=== PATIENT | female | born 1950 | race Caucasian/White ===

== ENCOUNTER → 2017-01-26 | Outpatient (CLI) | payer OTHER ==
[~2017-01-26] MED LIST: ANTIVERT/2525 MG PO; APIDRA100 U/ML; ASPIRIN81 M1 PO; ATORVASTATIN CA10 MG PO; CALCIUM; CELECOXIB200 M1 PO; CEPHULAC10 GM/151 PO; DICYCLOMINE HCL10 MG PO; DIOVAN HCT 12.51 TAB PO; DIOVAN HCT 25 M1 TA2 PO; DIOVAN160 MG PO; GLUCOTROL XL10 MG PO; GLYXAMBI1 TAB PO; LABETALOL HCL100 MG PO; METFORMIN1000 MG PO; METFORMIN500 MG PO; NOVOLIN N100 U/ML SC; NOVOLOG 70/30 M10 ML SC; OMEPRAZOLE40 MG PO; VICTOZ; VICTOZA6 MG/ML SC; VITAMIN E500 IU PO
== END | disposition home or self-care (01) ==
LOC: MRI 13:33
DX: I63.9 Cerebral infarction, unspecified (principal); E11.9 Type 2 diabetes mellitus without complications

== ENCOUNTER → 2017-03-27 | Outpatient (CLI) | payer OTHER ==
[2017-03-27 11:55] LABS: HEMOGLOBIN A1c 12.6 % (4.8-5.6)
[2017-03-27 12:06] LABS: ALBUMIN 3.1 gm/dl (3.1-4.5); BILIRUBIN, TOTAL 0.4 mg/dl (0.2-1.0); TOTAL PROTEIN 6.9 gm/dL (6.4-8.2)
== END | disposition home or self-care (01) ==
LOC: LAB 11:12
PROVIDERS: Family Medicine
DX: E55.9 Vitamin D deficiency, unspecified (principal); I10 Essential (primary) hypertension; E11.9 Type 2 diabetes mellitus without complications; E78.00 Pure hypercholesterolemia, unspecified

== ENCOUNTER → 2017-04-21 | Outpatient (CLI) | payer OTHER ==
--- NOTE | ~2017-04-21 | PR ---
[place], [place] PROGRESS NOTE NAME: JERMAINE NA [facility] #: [id number] UNIT #: [id number] ROOM: DOCTOR: KEVIN HOLLINGSWORTH DPM BIRTHDATE: [birth year] DOS: 04/21/2017 SUBJECTIVE: This is a new patient. She is a 67-year-old female, diabetic, who presents with an area of ulceration on plantar surface of right foot. The patient is not certain how long this area has been open. She did notice some blood on the sock and that is what prompted her to come in here. She was seen by her primary care physician and placed on Augmentin yesterday. PHYSICAL EXAMINATION: It is noted that initially there is an area that measures 0.4 x 0.6 x 0.3 underneath the second metatarsophalangeal joint. This area is slough covered. With the initial evaluation, the area was probed and there was a large piece of glass that was in the subcutaneous tissue layer. This glass was extracted utilizing a pickup and a 15 blade and removed in toto. Purulent discharge was noted, although there is some erythema around the metatarsophalangeal joint in this region. IMPRESSION: Foreign body with infection of the second metatarsophalangeal joint region and a diabetic ulceration secondary to this issue. PLAN: 1. Evaluate. 2. Excision of foreign body glass from the right foot. PLAN: 1. Evaluate. 2. Again, the excision was performed. We will send her to x-ray to make certain there is no other foreign bodies deep within the tissue structures and to rule out any abscess or osteomyelitis. The patient will be placed on silver alginate and a bulky dressing and a surgical shoe. I would like to see the patient back in 2 weeks since there is no clinic next week, although we will call her if anything suspicious showed up on x-ray. KEVIN HOLLINGSWORTH DPM CM:PNTRANS [phone] KEVIN HOLLINGSWORTH DPM 04/21/17 2326 interface
== END ==
LOC: WOUNDCARE 02:26
DX: E11.621 Type 2 diabetes mellitus with foot ulcer (principal); L97.422 Non-pressure chronic ulcer of left heel and midfoot with fat layer exposed; L97.511 Non-pressure chronic ulcer of other part of right foot limited to breakdown of skin

== ENCOUNTER → 2017-04-22 | Outpatient (CLI) | payer OTHER | END | disposition home or self-care (01) | LOC: RAD 10:33 | DX: S90.811A Abrasion, right foot, initial encounter (principal); E11.621 Type 2 diabetes mellitus with foot ulcer; L97.422 Non-pressure chronic ulcer of left heel and midfoot with fat layer exposed; M77.31 Calcaneal spur, right foot; X58.XXXA Exposure to other specified factors, initial encounter; Y93.89 Activity, other specified; Y92.89 Other specified places as the place of occurrence of the external cause; Y99.8 Other external cause status ==

== ENCOUNTER → 2017-05-05 | Outpatient (CLI) | payer OTHER ==
--- NOTE | ~2017-05-05 | PR ---
[place], [place] PROGRESS NOTE NAME: JERMAINE AN [facility] #: [id number] UNIT #: [id number] ROOM: DOCTOR: KEVIN HOLLINGSWORTH DPM BIRTHDATE: [birth year] DOS: 05/05/2017 SUBJECTIVE: The patient was seen for followup of right foot ulceration secondary to trauma and foreign body. The patient has been doing well. She has been using the alginate with Ag to the area and a bulky bandage. She has no new complaints. Area is very small today at 0.1 x 0.5 x 0.1. No signs of infection. There was some callus tissue which was debrided through to skin. The patient tolerated procedure well, no bleeding. No signs of infection, complications or any other abnormalities noted at this time. IMPRESSION: Trauma area, plantar surface of right foot, progressing very well. PLAN: 1. Evaluate. 2. We will continue with the silver alginate and dressing to the area every other day. Like to see the patient back next week just for 1 additional followup. Hopefully, she will be healed at that time. Any problems should arise, she can call us with any issues. KEVIN HOLLINGSWORTH DPM CM:CHELLY [phone] KEVIN HOLLINGSWORTH DPM 05/05/17 1029 interface
== END | disposition home or self-care (01) ==
LOC: WOUNDCARE 00:35
DX: E11.621 Type 2 diabetes mellitus with foot ulcer (principal); L97.511 Non-pressure chronic ulcer of other part of right foot limited to breakdown of skin; L97.422 Non-pressure chronic ulcer of left heel and midfoot with fat layer exposed; L84 Corns and callosities

== ENCOUNTER → 2017-05-12 | Outpatient (CLI) | payer OTHER ==
--- NOTE | ~2017-05-12 | PR ---
[place], [place] PROGRESS NOTE NAME: JERMAINE AN [facility] #: [id number] UNIT #: [id number] ROOM: DOCTOR: KEVIN HOLLINGSWORTH DPM BIRTHDATE: [birth year] DOS: 05/12/2017 SUBJECTIVE: The patient was seen for followup of right plantar foot wound. She has been performing dressing changes as directed. She states that the that we gave her, she did not like it, they did not stick. She has other Band-Aids that she has been using. No other new complaints. PHYSICAL EXAMINATION: It is noted that the wound is relatively the same measurement at 0.1 x 0.5 x 0.2. There is a lot of callus tissue, which was debrided from the area of dermis. Some bleeding was noted. The wound is clean without any type of infection or any other abnormalities noted at this time. IMPRESSION: Diabetic ulceration, grade 1, in nature; foreign body puncture wound, stable. PLAN: 1. Evaluate. 2. Debridement was performed. We will change her to Puracol to see if we can fill in that center area of wound deficit. The patient is to apply that to the area daily. I would like to see the patient back next week for followup of this complaint and we will see her back at that time. KEVIN HOLLINGSWORTH DPM CM:PNTRANS [phone] KEVIN HOLLINGSWORTH DPM 05/13/17 1302 interface
== END | disposition home or self-care (01) ==
LOC: WOUNDCARE 03:43
DX: E11.621 Type 2 diabetes mellitus with foot ulcer (principal); L97.422 Non-pressure chronic ulcer of left heel and midfoot with fat layer exposed; L97.511 Non-pressure chronic ulcer of other part of right foot limited to breakdown of skin; L84 Corns and callosities

== ENCOUNTER → 2017-05-19 | Outpatient (CLI) | payer OTHER ==
--- NOTE | ~2017-05-19 | PR ---
[place], [place] PROGRESS NOTE NAME: JERMAINE AN [facility] #: [id number] UNIT #: [id number] ROOM: DOCTOR: KEVIN HOLLINGSWORTH DPM BIRTHDATE: [birth year] DOS: 05/19/2017 SUBJECTIVE: The patient seen for followup of plantar right foot ulcer secondary to foreign body. The patient is doing well. She has no new complaints. She has been using the Puracol as directed. PHYSICAL EXAMINATION: It is noted that the wound is very small at 0.4 x 0.6 x 0.2. Slough debris and devitalized tissue was debrided from the wound through subcutaneous with 15 blade. No bleeding was noted. No signs of infection, no other complications noted at this time. IMPRESSION: Grade 1 ulcer secondary to foreign body. PLAN: 1. Evaluate. 2. Debridement was performed. We will continue using Puracol, but add a horseshoe-shaped pad in the forefoot to help offload this area. The patient is to change this dressing daily and [facility] 1 week. KEVIN HOLLINGSWORTH DPM CM:CHELLY 1 30 KEVIN HOLLINGSWORTH DPM 05/19/172330 interface
== END | disposition home or self-care (01) ==
LOC: WOUNDCARE 02:02
DX: E11.621 Type 2 diabetes mellitus with foot ulcer (principal); L97.511 Non-pressure chronic ulcer of other part of right foot limited to breakdown of skin; L97.422 Non-pressure chronic ulcer of left heel and midfoot with fat layer exposed

== ENCOUNTER → 2017-05-26 | Outpatient (CLI) | payer OTHER ==
--- NOTE | ~2017-05-26 | PR ---
[place], [place] PROGRESS NOTE NAME: JERMAINE AN [facility] #: [id number] UNIT #: [id number] ROOM: DOCTOR: KEVIN HOLLINGSWORTH DPM BIRTHDATE: [birth year] DOS: 05/26/2017 SUBJECTIVE: This is an established patient seen for followup of right foot plantar ulcer, grade 1 diabetic in nature due to foreign body. The patient has been using the Puracol to the area without any new complaints. She has been up on her feet a lot. Her is disabled and she has had to take care of him more than usual, so she has not been able to offload the area as much as possible. PHYSICAL EXAMINATION: It is noted that the wound is very small, 0.1 x 0.5 x 0.8, but abundance of callus tissue and devitalized tissue was present in and around the wound. This area was debrided through subcutaneous with 15 blade. No bleeding was noted. The patient tolerated the procedure. No active infection or complications noted. IMPRESSION: Grade 1 diabetic ulceration, stable. PLAN: 1. Evaluate. 2. Debride area. We will continue the Puracol. I talked to the patient about the need to offload the area. Horseshoe pads were also dispensed to the patient in order to alleviate some of the pressure to the wound. If she is able to offload the area more and get help from family members and the wound still does not progress, we will think about alternative options like a cellular tissue product to get this to closure. KEVIN HOLLINGSWORTH DPM CM:PNTRANS [phone] KEVIN HOLLINGSWORTH DPM 05/26/172339 interface
== END | disposition home or self-care (01) ==
LOC: WOUNDCARE 03:00
DX: E11.621 Type 2 diabetes mellitus with foot ulcer (principal); L97.511 Non-pressure chronic ulcer of other part of right foot limited to breakdown of skin; L97.422 Non-pressure chronic ulcer of left heel and midfoot with fat layer exposed

== ENCOUNTER → 2017-06-02 | Outpatient (CLI) | payer OTHER ==
--- NOTE | ~2017-06-02 | PR ---
[place], [place] PROGRESS NOTE NAME: JERMAINE NA [facility] #: [id number] UNIT #: [id number] ROOM: DOCTOR: KEVIN HOLLINGSWORTH DPM BIRTHDATE: [birth year] DOS: 06/02/2017 SUBJECTIVE: The patient was seen for followup of plantar right foot wound secondary to foreign body and diabetes. The patient is progressing well. She has been doing the bandage changes as directed. No new complaints at this time. PHYSICAL EXAMINATION: It is noted that the wound measures 0.5 x 0.5 x 0.2 cm. No debridement was done today. No callus or other debris noted in the wound. The wound has filled in quite nicely and there is a baby skin surrounding the wound bed itself. IMPRESSION: Grade 1 diabetic ulceration, foreign body, progressing very well. PLAN: 1. Evaluate. 2. We will continue with padding to the area. We will take her off Puracol and move her to alginate. I also did put a horseshoe pad in her shoe in order to help offload the area. I would like to just check the patient back next week quickly to make certain that new epithelial skin has remained intact and the area is completely closed. She is to call if any problems arise in the meantime. KEVIN HOLLINGSWORTH DPM CM:PNTRANS [phone] KEVIN HOLLINGSWORTH DPM 06/02/17 1129 interface
== END | disposition home or self-care (01) ==
LOC: WOUNDCARE 00:24
DX: E11.621 Type 2 diabetes mellitus with foot ulcer (principal); L97.422 Non-pressure chronic ulcer of left heel and midfoot with fat layer exposed; L97.511 Non-pressure chronic ulcer of other part of right foot limited to breakdown of skin

== ENCOUNTER → 2017-06-09 | Outpatient (CLI) | payer MEDICARE ==
--- NOTE | ~2017-06-09 | PR ---
[place], [place] PROGRESS NOTE NAME: JERMAINE AN [facility] #: [id number] UNIT #: [id number] ROOM: DOCTOR: KEVIN HOLLINGSWORTH DPM BIRTHDATE: [birth year] DOS: 06/09/2017 SUBJECTIVE: This is an established patient seen for followup of right plantar foot grade 1 diabetic ulcerations secondary to foreign body. She has been doing the dressings with alginate and a Band-Aid every other day without any new complaints. PHYSICAL EXAMINATION: It is noted that the wound is smaller, 0.3 x 0.5 x 0.2. Callus tissue and debris is debrided through subcutaneous with 15 blade. The patient tolerated the procedure well and no bleeding was noted. No signs of infection or drainage present at this time. IMPRESSION: Grade 1 diabetic ulceration, progressing well, but slowly. PLAN: 1. Evaluate. 2. Debridement was performed. We will now switch to Arglaes powder to the area daily. The patient is to change this daily and put a boardered foam around the area after packing the Arglaes powder into the wound. I would like to see the patient back in 1 week for followup. KEVIN HOLLINGSWORTH DPM CM:CEHLLY [phone] KEVIN HOLLINGSWORTH DPM 06/12/17 0850 interface
== END | disposition home or self-care (01) ==
LOC: WOUNDCARE 02:44
DX: E11.621 Type 2 diabetes mellitus with foot ulcer (principal); L97.511 Non-pressure chronic ulcer of other part of right foot limited to breakdown of skin; L97.422 Non-pressure chronic ulcer of left heel and midfoot with fat layer exposed; L84 Corns and callosities

== ENCOUNTER → 2017-06-16 | Outpatient (CLI) | payer MEDICARE ==
--- NOTE | ~2017-06-16 | PR ---
[place], [place] PROGRESS NOTE NAME: JERMAINE AN [facility] #: [id number] UNIT #: [id number] ROOM: DOCTOR: KEVIN HOLLINGSWORTH DPM BIRTHDATE: [birth year] DOS: 06/16/2017 SUBJECTIVE: The patient was seen for followup of plantar surface, right foot diabetic ulcer and foreign body. The patient has been using the alginate and dry dressing without any complaints. PHYSICAL EXAMINATION: It is noted that the ulcer is very small 0.1 x 0.4 x 0.1. Callus tissue and debris was debrided through dermis with a 15 blade. No bleeding was noted and the patient tolerated procedure well. No signs of infection or complications noted at this time. IMPRESSION: Grade 1 diabetic ulceration, progressing well. PLAN: 1. Evaluate. 2. Debridement was performed. She was using Arglaes powder. We will continue using the Arglaes powder and a dry dressing daily and then see the patient back in 1 week. She is to call if any problems arise in the meantime. KEVIN HOLLINGSWORTH DPM CM:PNTRANS [phone] KEVIN HOLLINGSWORTH DPM 06/17/17 0025 interface
== END | disposition home or self-care (01) ==
LOC: WOUNDCARE 02:41
DX: E11.621 Type 2 diabetes mellitus with foot ulcer (principal); L97.422 Non-pressure chronic ulcer of left heel and midfoot with fat layer exposed; L97.511 Non-pressure chronic ulcer of other part of right foot limited to breakdown of skin

== ENCOUNTER → 2017-06-23 | Outpatient (CLI) | payer MEDICARE | END | disposition home or self-care (01) | LOC: WOUNDCARE 02:11 | DX: E11.621 Type 2 diabetes mellitus with foot ulcer (principal); L97.511 Non-pressure chronic ulcer of other part of right foot limited to breakdown of skin ==

== ENCOUNTER → 2017-07-03 | Outpatient (CLI) | payer MEDICARE, OTHER ==
[~2017-07-03] MED LIST changes: +AMITIZA8 MCG PO; +Carafate1 GM PO; +DICLOFENAC SOD75 MG PO; +GLIPIZIDE10 M2 PO; +LYRICA150 M1 PO; +TRESIBA FL200 UNIT/1 SC; +VALSARTAN160 MG PO; +VITAMIN E100 UNI2 PO
[2017-07-03 09:53] LABS: HEMATOCRIT 26.9 % (37.0-47.0); MEAN CELL VOLUME 71.9 fl (81.0-99.0); MEAN CORPUSCULAR HGB 18.7 pg (27.0-31.0); NUCLEATED RED BLOOD CELL 0.6 % (0.0-0.0); RED BLOOD COUNT 3.74 10*6/uL (4.10-5.10); RED CELL DISTRI WIDTH 20.5 % (0-14.5); WHITE BLOOD COUNT 6.7 10*3/uL (4.8-10.8)
[2017-07-03 10:24] LABS: ALBUMIN 3.1 gm/dl (3.1-4.5); ALKALINE PHOSPHATASE 115 U/L (45-117); BUN 11 mg/dl (7-24); CHLORIDE 106 mmol/L (98-107); CHOLESTEROL 159 mg/dL (<200); CREATININE 1.07 mg/dL (0.55-1.02); HDL CHOLESTEROL 38 mg/dl (40-60); LDL CHOLESTEROL 92 mg/dL (9-159); POTASSIUM 4.7 mmol/L (3.5-5.1); SGOT/AST 18 IU/L (3-35); SGPT/ALT 20 U/L (12-78); SODIUM 139 mmol/L (136-145); TOTAL PROTEIN 6.9 gm/dL (6.4-8.2); TRIGLYCERIDES 144 mg/dl (<150); VLDL CHOLESTEROL 29 mg/dL (6-40)
== END | disposition home or self-care (01) ==
LOC: LAB 09:36
PROVIDERS: Family Medicine
DX: E55.9 Vitamin D deficiency, unspecified (principal); E11.9 Type 2 diabetes mellitus without complications; I10 Essential (primary) hypertension; E78.00 Pure hypercholesterolemia, unspecified

== ENCOUNTER 2017-07-04 11:07 | Inpatient (IN) | payer MEDICARE, OTHER ==
[2017-07-04] VITALS (7 sets, daily range): BP systolic 130–154; BP diastolic 41–78
[~2017-07-04] VITALS: Ht 162.5 cm; Wt 119.3 kg
--- NOTE | ~2017-07-04 | DS ---
[place], [place] DISCHARGE SUMMARY NAME: JERMAINE AN [facility] #: [id number] UNIT #: [id number] ROOM: 528 DOCTOR: NICHOLE RICKSUNITA Archuleta BIRTHDATE: [birth year] DOS: 07/07/2017 DISCHARGE DIAGNOSES: 1. Blood loss anemia from gastrointestinal bleed. 2. Patient with ulceration and stricture of the ascending colon on colonoscopy by Dr. Teixeira, asked to follow up with him in 2 weeks. 3. Diclofenac and Celebrex were stopped, probably causing gastrointestinal bleed. 4. Thrombocytopenia. 5. Elevated alkaline phosphatase level. 6. Type 2 diabetes mellitus. 7. Hypertension. 8. Gastroesophageal reflux disease and esophagitis. HOSPITAL COURSE: The patient was admitted by Dr. Carey Moreland when he presented with rectal bleeding. The patient had blood mixed with stool. The patient admitted and hemoglobins were monitored and she was given 3 units of packed cells. Finally, the patient was taken for EGD and colonoscopy and was found to have ascending colon stricture and ulcerations possible site of bleeding. Dr. Teixeira recommended stopping diclofenac and Celebrex for pain, which were possibly causing the patient's bleeding. Dr. Teixeira has cleared the patient for discharge today and to follow up with him in 2 weeks. I am arranging for patient to follow up on Monday with Dr. Kraig Lees. Benign essential hypertension with controlled blood pressures. Type 2 diabetes mellitus. Blood sugars were monitored and treated. History of colon cancer. Obesity. LABORATORY DATA: Hemoglobin of [address] of the abdomen and pelvis showed some hepatic steatosis. DISCHARGE MANAGEMENT: Metformin 1000 mg b.i.d., Victoza 1.8 mg daily subQ, labetalol 50 mg b.i.d., Tylenol p.r.n., Protonix 40 mg daily, Carafate 1 gram b.i.d. before meals, Lyrica 150 mg daily. The patient was found to be iron deficient and was given intravenous iron during her stay at the hospital and iron deficiency anemia probably related to GI bleed. The patient to follow with Dr. Kraig Lees on Monday and with Dr. Teixeira in 2 weeks. Her hemoglobin needs to be monitored. [place], [place] DISCHARGE SUMMARY NAME: JERMAINE AN [facility] #: [id number] UNIT #: [id number] ROOM: 528 DOCTOR: SUNITA VARELA MD BIRTHDATE: [birth year] SUNITA VARELA MD CM:ARJUN 1944 SUNITA VARELA MD 07/08/1712 interface
--- NOTE | ~2017-07-04 | O ---
[place], [place] OPERATIVE NOTE NAME: JERMAINE AN UNIT #: [id number] ROOM: 528 DOCTOR: DYLAN HUFFMAN MD BIRTHDATE: [birth year] DOS: GASTROENDOSCOPIC REPORT HISTORY OF PRESENT ILLNESS: This is a 67-year-old patient who presented with chief complaint of anemia, tiredness, status post unit of blood transfusion of packed cells. The patient was found to have H and H of 7 and 26 microcytic indices. Comprehensive metabolic panel: Creatinine 1.07. Electrolytes balanced liver function test normal. Hemoglobin A1c 12, vitamin D 17. CBC differential dropped to 6 and 24. Her latest H and H has increased to 7.3 and 26. She requires more transfusion which is arranged. PAST MEDICAL HISTORY: Colonic carcinoma of sigmoid colon, status post resection, gastroesophageal reflux, uterine cancer, hypertension, diabetes mellitus. PAST SURGICAL HISTORY: Sigmoid resection, hysterectomy, cholecystectomy. SOCIAL HISTORY: Nonsmoker, nonalcohol consumer. FAMILY HISTORY: Noncontributory. ALLERGIES: No known medication. MEDICATION: List has been reviewed including omeprazole. The patient has been diclofenac as well as aspirin. PROCEDURE: Today's procedure part of investigation is colonoscopy and panendoscopy. PREMEDICATION: Versed and Diprivan. SCOPE: Olympus forward-viewing gastroscope Q10 video. REPORT: After putting the patient in the left lateral position and after application of lubricant to the scope, the scope was introduced; thereafter, under direct visualization, advanced through the length of esophagus without difficulty. Gastric pouch was entered. Mild gastritis seen. Duodenal bulb, second and third part within normal limits. Antral biopsy obtained. The patient was extubated, tolerated procedure well. IMPRESSION: Mild gastritis, no active source of bleeding in upper gastrointestinal tract. We are going to proceed with colonoscopy. Thank you very much indeed. [place], [place] OPERATIVE NOTE NAME: JERMAINE AN [facility] #: [id number] UNIT #: [id number] ROOM: 528 DOCTOR: DYLAN HUFFMAN MD BIRTHDATE: [birth year] DYLAN HUFFMAN MD CM:OPRECORD:OPERATIVE NOTE 1326 27 DYLAN HUFFMAN MD 07/05/17 182 interface
--- NOTE | ~2017-07-04 | PR ---
[place], [place] PROGRESS NOTE NAME: JERMAINE AN [facility] #: [id number] UNIT #: [id number] ROOM: 528 DOCTOR: HUGO WOODY MD BIRTHDATE: [birth year] DOS: SUBJECTIVE: The patient states that she feels better and would like to go home. OBJECTIVE: VITAL SIGNS: Graphic trend shows blood pressure 113/55, pulse of 88, respirations 20, temperature 97.6. LUNGS: Clear. HEART: Regular. ABDOMEN: Obese, soft, nontender. EXTREMITIES: Without any edema. LABORATORY DATA: Blood sugar was 306 on the last reading. ASSESSMENT AND PLAN: 1. Acute gastrointestinal bleed. Endoscopy showing gastritis, most likely from multiple nonsteroidals that she has been on. 2. Possibility of diverticulitis. IV Flagyl was given. A CT scan of the abdomen and pelvis has been ordered. She also had biopsies of the anastomotic site and we are awaiting the results of that. 3. Iron deficiency anemia, iron supplements IV and p.o. have been started. 4. Type 2 diabetes mellitus, on metformin and glipizide and insulin. They will be restarting her medications since the patient is eating well. The plan is to discharge her to home tomorrow if the patient remains stable. HUGO WOODY MD CM:PNTRANS [phone] HUGO WOODY MD 07/06/17 1219 interface
--- NOTE | ~2017-07-04 | WRIGHTHP ---
[place], [place] PATIENT HISTORY AND PHYSICAL EXAM NAME: JERMAINE AN [facility] #: [id number] UNIT #: [id number] ROOM: 528 DOCTOR: HUGO WOODY MD BIRTHDATE: [birth year] DOS: 07/04/2017 HISTORY OF PRESENT ILLNESS: The patient is 67 years old. The patient is not known to me. The patient comes in with complaints of bleeding per rectum. She has had that for about 2 weeks now. Blood is mixed with her stool. She has had hemorrhoids in the past. She did have blood work in March which was normal and yesterday she went for routine blood work at Dr. Lees's office, was called that her blood count was too low and that she needs to come into the Emergency Room, so she decided to come in. Her blood count in the Emergency Room was 6.2 and we decided to admit her with precipitous drop in hematocrit and GI bleed. The patient denies having any complaints, but has a lot of back pain and leg pain. She has been taking both diclofenac and Celebrex for pain. She denies having any fever, any chills, any chest pains or palpitations. Does have mild shortness of breath when she exerts herself. PAST MEDICAL HISTORY: Significant for: 1. Benign hypertension. 2. Type 2 diabetes mellitus. 3. Chronic back pain, possibly from osteoarthritis for which she is on multiple anti-inflammatories. 4. History of colon cancer. HOME MEDICATIONS: ____, Celebrex, diclofenac, ____, valsartan/hydrochlorothiazide, labetalol, metformin, omeprazole, Lyrica, vitamin E, insulin, Tarceva, Victoza. SOCIAL HISTORY: Nonsmoker, does not use any alcohol. PHYSICAL EXAMINATION: GENERAL: She is awake and alert and oriented. VITAL SIGNS: Blood pressure is 154/62, pulse of 98, respirations 20, temperature 97.7. LUNGS: Diminished breath sounds. No wheezes, rales or rhonchi heard. HEART: Regular. ABDOMEN: Obese, minimal tenderness present diffusely. EXTREMITIES: Without any edema. ASSESSMENT AND PLAN: 1. Precipitous drop in hematocrit, possibly from a gastrointestinal bleed. The patient is ordered iron studies and transfusion has been ordered and consultation with Dr. Teixeira has been obtained. 2. The patient has chronic pain, has been on 2 different nonsteroidals, possibly has bleeding ulcer. We will discontinue both medications. Pain medicines will be ordered. 3. Type 2 diabetes mellitus, poorly controlled. The patient is advised to watch her diet. Metformin has right now to be on hold along with insulin since the patient is n.p.o. for procedure. We will restart at a later date. [place], [place] PATIENT HISTORY AND PHYSICAL EXAM [facility]: [facility] [id number] [facility] #: [id number] ROOM: 528 DOCTOR: HUGO WOODY MD BIRTHDATE: [birth year] HUGO WOODY MD CM:HISPHYS:PATIENT HISTORY AND PHYSICAL EXAMINATION 1854 14 HUGO WOODY MD 07/05/172214 interface
--- NOTE | ~2017-07-04 | O ---
[place], [place] OPERATIVE NOTE NAME: JERMAINE AN Brian UNIT #: [id number] ROOM: 528 DOCTOR: NATHANAEL RICK,DYLAN BIRTHDATE: [birth year] DOS: GASTROENDOSCOPIC REPORT INDICATION: The patient has presented with history of severe anemia, microcytic in origin. The patient has been on aspirin, diclofenac and Celebrex. PROCEDURE: Today's procedure part of investigation is colonoscopy plus biopsy. PREMEDICATION: Versed and Diprivan. SCOPE: Olympus folding colonoscope 10L video. REPORT: After putting the patient in the left lateral position and after application of lubricant to the scope, the scope was introduced; thereafter, under direct visualization, advanced through the length of colon without difficulty via the sigmoid colon, evidence of previous resection of sigmoid colon was noticed. Scope was negotiated with few diverticula noticed in the descending and transverse colon. Finally, we achieved to reach mid ascending colon. In this area, I see colonic stricture with ulcerations on rim of the . This particularly character is estranged and very rare representation. Base of the cecum explored, no pathology seen, withdrawn back to the site of the stricture mid ascending colon with ulceration at the rim of . Multiple biopsies obtained. Photographic series obtained and I expect this be a rare representation of the ulcer and stricture formation in colon secondary to nonsteroidal anti-inflammatory including diclofenac as well as Celebrex in addition to presence of aspirin with lead to chronic blood loss. Scope was gradually withdrawn. The patient extubated, tolerated procedure well. IMPRESSION: Status post sigmoid resection with benign anastomotic site, scattered rare diverticulosis and mid ascending colon stricture and ulcerations ruling out to be secondary to nonsteroidal anti-inflammatory intake in addition to aspirin which is the cause of chronic microcytic anemia. PLAN AND DISCUSSION: At the present time, multiple biopsies was obtained to rule out infiltrative pathology, i.e., dysplastic cell, particularly in view of colonic carcinoma, history and past as well as uterine carcinoma and should it be benign inflammatory cells, then we have to consider withdrawing diclofenac and Celebrex from her regimen, only managing her care. Other alternative managed pain including fentanyl and otherwise. I thank you very much indeed for your kind referral. [place], [place] OPERATIVE NOTE NAME: JERMAINE AN UNIT #: [id number] ROOM: 528 DOCTOR: NATHANAEL RICK,DYLAN BIRTHDATE: [birth year] DYLAN HUFFMAN MD CM:OPRECORD:OPERATIVE NOTE 1326 35 DYLAN HUFFMAN MD 07/05/17 183 interface
[~2017-07-04 11:07] MED LIST changes: -AMITIZA8 MCG PO; -Carafate1 GM PO; -DICLOFENAC SOD75 MG PO; -GLIPIZIDE10 M2 PO; -LYRICA150 M1 PO; -TRESIBA FL200 UNIT/1 SC; -VALSARTAN160 MG PO; -VITAMIN E100 UNI2 PO
[2017-07-04 11:54] LABS: BASO % 0.5 % (0.0-1.0); EOS # 0.2 10*3/uL (0.0-0.4); EOS % 2.8 % (1.0-4.0); HEMATOCRIT 24.8 % (37.0-47.0); HEMOGLOBIN 6.5 g/dl (12.0-16.0); LYMPH # 1.2 10*3/uL (1.3-4.4); LYMPH % 19.1 % (27.0-41.0); MEAN CELL VOLUME 70.3 fl (81.0-99.0); MEAN CORPUSCULAR HGB 18.4 pg (27.0-31.0); MEAN CORPUSCULAR HGB CONC 26.2 g/dl (33.0-37.0); MONO # 0.4 10*3/uL (0.1-1.0); MONO % 5.7 % (3.0-9.0); NEUT # 4.4 10*3/uL (2.3-7.9); NEUT % 71.2 % (47.0-73.0); NUCLEATED RED BLOOD CELL 0.7 % (0.0-0.0); PLATELET COUNT AUTOMATED 121 10*3/uL (130-400); RED BLOOD COUNT 3.53 10*6/uL (4.10-5.10); RED CELL DISTRI WIDTH 20.5 % (0-14.5); WHITE BLOOD COUNT 6.1 10*3/uL (4.8-10.8)
[2017-07-04 12:01] LABS: ACT PARTIAL THROMBO TIME 21.8 SECONDS (20.8-31.5)
[2017-07-04 12:07] LABS: ALBUMIN 3.2 gm/dl (3.1-4.5); CREATININE 1.15 mg/dL (0.55-1.02); POTASSIUM 4.5 mmol/L (3.5-5.1); TOTAL PROTEIN 7.1 gm/dL (6.4-8.2)
--- NOTE | 2017-07-04 14:17 | NUR ---
I nformed consent obtained from patient for Blood transfusion by. 1. Patient identified by arm band. Vital signs recorded. Blood unit number verified by 2 R.N.'s. I.V. site satisfactory. Unit 1 started at a KVO rate with Normal Saline. TEA DWYER 1341HRS
--- NOTE | 2017-07-04 14:18 | NUR ---
Time: 1417 A 67 year old FEMALE admitted to 5E under services of DR. BONG RICK,HUGO. Pt. arrived via stretcher from ER. Chief complaint: ANEMIA. WADE LEONE
--- NOTE | 2017-07-04 14:18 | NUR ---
1343 TO 5 EAST. RN WAITING AT BEDSIDE. NO INCIDENT WITH TRANSPORT OR TRANSITION TO BED. NO QUESTIONS AT TIME OF PATIENT TRANSER.
--- NOTE | 2017-07-04 14:30 | NUR ---
BLOOD CONTINUES TO INFUSE.
[2017-07-04] MEDS ORDERED: VITAMIN E100 UNI2 PO (14:31)
[2017-07-04] MEDS ORDERED: GLIPIZIDE10 M2 PO (14:32)
[2017-07-04] MEDS ORDERED: LYRICA150 M1 PO (14:33)
[2017-07-04] MEDS ORDERED: DICLOFENAC SOD75 MG PO (14:35)
[2017-07-04] MEDS ORDERED: TRESIBA FL200 UNIT/1 SC (14:36)
[2017-07-04 15:24] LABS: IRON 22 ug/dL (50-170); TOTAL IRON BINDING CAPACITY 422 ug/dl (250-450)
--- NOTE | 2017-07-04 16:30 | NUR ---
BLOOD TRANSFUSION COMPLETE.
--- NOTE | 2017-07-04 20:00 | NUR ---
PT ALERT AND ORIENTED. IN BED, WATCHING TV. PREP FOR COLONOSCOPY FINSIHED. PRE-OP QUESTIONAIRE FOR PROCEDURE IN AM COMPLETED.
[2017-07-05] VITALS (7 sets, daily range): BP systolic 133–154; BP diastolic 52–77
--- NOTE | 2017-07-05 06:00 | NUR ---
PT. SAID LAST STOOL WAS LIKE WATER BUT HAD SLIGHT BROWN TINT.
[2017-07-05 06:36] LABS: HEMATOCRIT 26.7 % (37.0-47.0); HEMOGLOBIN 7.3 g/dl (12.0-16.0)
--- NOTE | 2017-07-05 06:47 | NUR ---
FLEETS ENEMA ADMINISTERED PER ORDER. PATIENT TOLERATED WELL.
--- NOTE | 2017-07-05 07:59 | NUR ---
FLEETS ENEMA GIVEN. SMALL FLECKS OF SLOOL IN TOILET. PATIENT STATES SHE REFUSES AND FURTHER ENEMAS.
--- NOTE | 2017-07-05 10:46 | NUR ---
Assistive Technology Specialist in to talk to patient. Patient states lives at HOME with HER . There are 12 steps in the home. Physician: DR OSWALD [facility]ONE Patient's level of ADLs: INDEPENDENT Patient has working utilities: YES DME: NONE Follow-up physician's appointment after d/c: PREFERS TO MAKE HER OWN APPT Does patient want to access PORTAL?: Discharge plan HOME. LATASHA RODRIGUEZ
--- NOTE | 2017-07-05 12:00 | NUR ---
TO OR VIA BED.
--- NOTE | 2017-07-05 14:30 | NUR ---
RETURNED FROM OR.
--- NOTE | 2017-07-05 20:00 | NUR ---
LAYING IN BED, WATCHING TV. LUNGS DIMINISHED, NO WHEEZING OT RHONCHI NOTED. BILAT PITTING PEDAL EDEMA. NO PAIN AT PRESENT TIME.
[2017-07-06] VITALS (14 sets, daily range): BP systolic 113–160; BP diastolic 55–98
--- NOTE | 2017-07-06 06:22 | NUR ---
CALLED DR. WOODY TO VERIFY CT ABD/PELVIS AND SHE SAID YES TO BE DONE WITHOUT CONTRAST.
[2017-07-06 06:38] LABS: HEMATOCRIT 24.8 % (37.0-47.0); HEMOGLOBIN 6.9 g/dl (12.0-16.0)
--- NOTE | 2017-07-06 08:16 | NUR ---
PT DOWN FOR CAT SCAN AT THIS TIME.
--- NOTE | 2017-07-06 08:40 | NUR ---
PT BACK FROM CT AT THIS TIME.
--- NOTE | 2017-07-06 10:15 | NUR ---
BLOOD TRANSFUSION STARTED AT THIS TIME. VITAL SIGNS OBTAININED PER POLICY.
--- NOTE | 2017-07-06 13:35 | NUR ---
BLOOD TRANSFUSION COMPLETED AT THIS TIME. PT TOLERATED WELL. VITAL SIGNS STABLE. IV FLAGYL HUNG AT THIS TIME. SECOND OF PRBC'S WILL BE STARTED UPON COMPLETION.
--- NOTE | 2017-07-06 15:30 | NUR ---
SECOND UNIT OF PRBC'S STARTED AT THIS TIME. VITAL SIGNS OBTAINED; WNL.
--- NOTE | 2017-07-06 15:45 | NUR ---
PT TOLERATING BLOOD TRANSFUSION WELL. VITAL SIGNS WNL.
--- NOTE | 2017-07-06 20:00 | NUR ---
SITTING IN RECLINER, NO ACUTE DISTRESS NOTED. RESPIRATIONS EASY. LUNGS DIMINISHED, CLEAR. PULSE OX 100% RA. TRACE BLE EDEMA. CALL LIGHT WITHIN REACH. NO VOICED COMPLAINTS
--- NOTE | 2017-07-06 21:19 | NUR ---
REQUESTED AND RCEIVED TYLENOL PER PRN ORDER FOR COMPLAINTS OF HEADACHE RATING AN 8. CALL LIGHT WITHIN REACH. WILL MONITOR FOR EFFECTIVENESS
--- NOTE | 2017-07-06 23:00 | NUR ---
EARLIER DEMEROL APPEARS EFFECTIVE. SLEEPING. NO DISTRESS NOTED. RESPIRATIONS EASY. CALL LIGHT WITHIN REACH
[2017-07-07] VITALS: BP 120/46
--- NOTE | 2017-07-07 02:00 | NUR ---
SLEEPING. NO DISTRESS NOTED. RESPIRATIONS EASY. CALL LIGHT WITHIN REACH
[2017-07-07 06:00] LABS: MEAN CELL VOLUME 74.6 fl (81.0-99.0); MEAN CORPUSCULAR HGB 21.7 pg (27.0-31.0); MEAN CORPUSCULAR HGB CONC 29.1 g/dl (33.0-37.0); NUCLEATED RED BLOOD CELL 0.1 10*3/uL (0.0-0.0); NUCLEATED RED BLOOD CELL 0.9 % (0.0-0.0); PLATELET COUNT AUTOMATED 100 10*3/uL (130-400); RED BLOOD COUNT 4.14 10*6/uL (4.10-5.10); RED CELL DISTRI WIDTH 22.5 % (0-14.5); WHITE BLOOD COUNT 5.3 10*3/uL (4.8-10.8)
--- NOTE | 2017-07-07 06:00 | NUR ---
slept throughout night with no distress noted. respirations easy. call light within reach. no voiced complaints this shift
[2017-07-07 06:07] LABS: HEMATOCRIT 30.9 % (37.0-47.0)
[2017-07-07 06:21] LABS: CREATININE 1.12 mg/dL (0.55-1.02); POTASSIUM 4.4 mmol/L (3.5-5.1); TOTAL PROTEIN 6.3 gm/dL (6.4-8.2)
[2017-07-07 06:40] LABS: BASOPHILS 3 % (0-1); TOTAL CELLS COUNTED 100 #CELLS
[2017-07-07 06:41] LABS: PLATELET SUFFICIENCY LOW (NORMAL)
[2017-07-07 06:42] LABS: POLYCHROMASIA SLIGHT
[2017-07-07 08:00] VITALS: BP 146/70
--- NOTE | 2017-07-07 11:13 | NUR ---
CALL PLACED TO DR WOODY AT THIS TIME IN REGARDS TO PT BEING CLEARED FROM GI STANDPOINT. AWAITING CALL BACK.
[2017-07-07 12:00] VITALS: BP 100/50
--- NOTE | 2017-07-07 12:00 | NUR ---
DR WOODY RETURNED CALL, STATES DR VARELA IS ROUNDING TODAY AND WILL SEE PT LATER.
--- NOTE | 2017-07-07 12:30 | NUR ---
ANJEMRAINE Torres [id number] Please refer to the physician's history and physical for past medical history, comorbid conditions, and allergies. Diagnosis: ANEMIA, GI BLEED Monico Score: 20,LOW OR NO RISK WOUND DESCRIPTIONS: Location of the wound: right plantar aspect of foot Type of wound: traumatic Thickness: Full Size: 0.4cm x 0.3cm x <0.1cm Tunneling: none Undermining: none Sinus Tract: none Presence of Exudate: Amount: None Color: Brown Odor: None Periwound Skin Appearance: Normal Wound edges: approximated Pain (associated with wound): none at time of assessment How does patient state this happened? pt stated she step on glass. pt also follows up in the wound care center and is getting arglase powder covered with border foam. Surface the patient is resting on: Isoflex SKIN PREVENTION RECOMMENDATION: 1. Pressure redistribution support surface as appropriate 2. Elevate heels 3. Remove boots/TEDS every shift and reapply 4. Head of bed 30 degrees as tolerated 5. Assess nutrition and hydration 6. Manage moisture 7. Avoid the use of containment devices while in bed 8. Use absorptive products on surfaces limit layers of linens on bed 9. Turn and reposition every 1-2 hours in bed and every 1 hour in chair as tolerated 10. Weight shifts every 15 minutes while up in chair 11. Offloading with pillows or device to keep heels elevated off bed 12. Monitor skin at least every shift 13. Inspect under medical devices twice a day WOUND TREATMENT RECOMMENDATIONS: Cleanse area with NSS and apply arglase powder when patient brings from home then cover with optifoam gentle. If patient is unable to bring in arglase powder just cleanse area with nss and apply optifoam gentle for protection. Have patient follow up [facility] with Dr. Roland.
--- NOTE | 2017-07-07 14:18 | NUR ---
Per Dr. Moreland follow up in the [facility] when discharged and to continue current orders from the [facility] until seen in the [facility]ound Care Center.
[2017-07-07 16:00] VITALS: BP 147/66
[2017-07-07] MEDS ORDERED: Carafate1 GM PO (19:33)
--- NOTE | 2017-07-07 20:05 | NUR ---
Discharge instructions reviewed with patient/family. Patient receptive and verbalizes understanding. Written instructions given to patient/family. PATIENT DISCHARGED VIA WC IN CARE OF . HEP LOCK REMOVED. DISCHARGE PICS TAKEN. SAWYER PAULINO
== END 2017-07-07 20:05 | disposition home or self-care (01) | DRG 394 ==
LOC: ED 11:07 → 5E 12:54 → EDHOLD 12:54 → 5E 13:18
PROVIDERS: Emergency Medicine; Family Medicine; ADMIT Internal Medicine
PROC: 30233N1 Transfusion of Nonautologous Red Blood Cells into Peripheral Vein, Percutaneous Approach (ICD-10-PCS; principal; 2017-07-04)
PROC: 0DBK8ZX Excision of Ascending Colon, Via Natural or Artificial Opening Endoscopic, Diagnostic (ICD-10-PCS; principal; 2017-07-04)
PROC: 0DB68ZX Excision of Stomach, Via Natural or Artificial Opening Endoscopic, Diagnostic (ICD-10-PCS; principal; 2017-07-04)
DX: K63.3 Ulcer of intestine (principal); K92.2 Gastrointestinal hemorrhage, unspecified; D69.6 Thrombocytopenia, unspecified; K56.699 Other intestinal obstruction unspecified as to partial versus complete obstruction; E11.65 Type 2 diabetes mellitus with hyperglycemia; T39.395A Adverse effect of other nonsteroidal anti-inflammatory drugs [NSAID], initial encounter; K21.0 Gastro-esophageal reflux disease with esophagitis; D50.9 Iron deficiency anemia, unspecified; I10 Essential (primary) hypertension; E66.9 Obesity, unspecified; D50.0 Iron deficiency anemia secondary to blood loss (chronic); Z85.43 Personal history of malignant neoplasm of ovary; Z90.710 Acquired absence of both cervix and uterus; Z79.82 Long term (current) use of aspirin; Z79.4 Long term (current) use of insulin; Z79.899 Other long term (current) drug therapy; Y92.89 Other specified places as the place of occurrence of the external cause; Z90.49 Acquired absence of other specified parts of digestive tract; Z82.49 Family history of ischemic heart disease and other diseases of the circulatory system; Z71.3 Dietary counseling and surveillance; Z85.42 Personal history of malignant neoplasm of other parts of uterus; Z83.3 Family history of diabetes mellitus; Z79.84 Long term (current) use of oral hypoglycemic drugs

== ENCOUNTER → 2017-07-12 | Outpatient (CLI) | payer MEDICARE, OTHER ==
[~2017-07-12] MED LIST changes: +Carafate1 GM PO; +DICLOFENAC SOD75 MG PO; +GLIPIZIDE10 M2 PO; +LYRICA150 M1 PO; +TRESIBA FL200 UNIT/1 SC; +VITAMIN E100 UNI2 PO
[2017-07-12 11:00] LABS: HEMATOCRIT 34.7 % (37.0-47.0); HEMOGLOBIN 9.9 g/dl (12.0-16.0); MEAN CELL VOLUME 77.3 fl (81.0-99.0); MEAN CORPUSCULAR HGB CONC 28.5 g/dl (33.0-37.0); NUCLEATED RED BLOOD CELL 0.4 % (0.0-0.0); PLATELET COUNT AUTOMATED 103 10*3/uL (130-400); RED BLOOD COUNT 4.49 10*6/uL (4.10-5.10); RED CELL DISTRI WIDTH 23.6 % (0-14.5)
[2017-07-12 11:32] LABS: CREATININE 1.11 mg/dL (0.55-1.02); POTASSIUM 4.5 mmol/L (3.5-5.1)
== END | disposition home or self-care (01) ==
LOC: LAB 10:29
PROVIDERS: Family Medicine
DX: K92.2 Gastrointestinal hemorrhage, unspecified (principal); D64.9 Anemia, unspecified

== ENCOUNTER 2017-07-17 01:15 | Inpatient (IN) | payer MEDICARE, OTHER ==
[~2017-07-17] VITALS: Ht 162.5 cm; Wt 117.0 kg
[2017-07-17] VITALS (7 sets, daily range): BP systolic 135–182; BP diastolic 58–79
--- NOTE | ~2017-07-17 | CON ---
[place], [place] REPORT OF CONSULTATION NAME: JERMAINE AN UNIT #: [id number] ROOM: 515 DOCTOR: TAMMY MERRILL MD BIRTHDATE: [birth year] DOS: HISTORY OF PRESENT ILLNESS: This is a 67-year-old -[place]ian woman with a history of type 2 diabetes mellitus, longstanding hypertension and colon cancer. She has never had a heart attack, heart failure, COPD or stroke. She had upper GI bleeding earlier this month and had workup done and she was found to have peptic ulcer disease and severe anemia was treated with blood transfusion. She was admitted to the hospital because of couple of days of lower retrosternal and epigastric pain that felt more like a pressure and tightness. There is no sharpness to it. It did not go into the back, but at that time has noticed on the left side of the neck and both arms. It has persisted for those 2 days and has not got away completely and she does not recall any exertional symptoms previously other than perhaps shortness of breath. No swelling of the lower extremities, palpitations, or loss of consciousness. SOCIAL HISTORY: She does not smoke, nor does she drink alcoholic beverages. Lives with her . PHYSICAL EXAMINATION: GENERAL: This reveals a patient who is moderately obese, alert, and oriented. She is not anemic. No thyromegaly or finger clubbing. VITAL SIGNS: Pulse is 72 and regular, blood pressure 155/79, previous blood pressures were high. NECK: Normal JVP. No bruit in the neck. HEART: There is no cardiomegaly. No murmurs are present. EXTREMITIES: Pedal pulses are palpable. There is trace plus pretibial edema bilaterally. LUNGS: Breath sounds are fairly decent bilaterally without any adventitious sounds. DIAGNOSTIC STUDIES: No ECG was done. LABORATORY STUDIES: Troponin I level was about less than 0.015. IMPRESSION: This patient with many risk factors for coronary artery disease, has symptoms that are of some concern. I agree with you that Lexiscan Cardiolite study should be performed before she leaves the hospital to exclude significant coronary artery disease. I thank you on behalf of Dr. Sloan for this consult. [place], [place] REPORT OF CONSULTATION NAME: JERMAINE AN UNIT #: [id number] ROOM: [facility] DOCTOR: TAMMY MERRILL MD BIRTHDATE: [birth year] TAMMY MERRILL MD CM:CONSTR:REPORT OF CONSULTATION 1257 07/18/17 0413 interface PATY SLOAN MD
--- NOTE | ~2017-07-17 | WRIGHTHP ---
[place], [place] PATIENT HISTORY AND PHYSICAL EXAM NAME: JERMAINE AN [facility] #: [id number] UNIT #: [id number] ROOM: 515 DOCTOR: HUGO WOODY MD BIRTHDATE: [birth year] DOS: 07/17/2017 HISTORY OF PRESENT ILLNESS: This patient is 67-year-old. The patient comes in with complaints of chest pain. The patient points to her epigastric area and states that she has had pain. She denies having any fever, any chills, any abdominal pain, nausea, any emesis. She was recently admitted in hospital for GI bleed. She has not noticed any since discharge. She had endoscopy and colonoscopy. A polyp was removed and endoscopy showed gastritis. The patient was placed on medications, states that she has been taking them. She denies having any fever. She does not have any other complaints this morning. PAST MEDICAL HISTORY: Significant for: 1. Again recent GI bleed, showing evidence of gastritis. 2. Type 2 diabetes mellitus, insulin-dependent. 3. History of coronary artery disease. 4. Benign hypertension. 5. Chronic back pain. MEDICATIONS: Aspirin 81, glipizide 10 b.i.d., labetalol 100 b.i.d., Amitiza 8 mcg b.i.d., metformin 1000 b.i.d., omeprazole 40 daily, Lyrica 150 b.i.d., Carafate 1 gram b.i.d., valsartan 160 daily, Tresiba insulin 130 units subcutaneously daily, Victoza 1.5 subcutaneously daily. SOCIAL HISTORY: Nonsmoker, does not use any alcohol. PHYSICAL EXAMINATION: GENERAL: She is awake and alert and oriented. VITAL SIGNS: Blood pressure is 156/79, pulse of 78, respirations 14. LUNGS: Diminished breath sounds. No wheezes, rales or rhonchi heard. HEART: Regular. ABDOMEN: Obese. Some tenderness noted in the epigastric region. EXTREMITIES: Without any edema. ASSESSMENT AND PLAN: 1. A patient who presents with chest pain. She does have risk factors and has known history of heart disease. She has been admitted. Rule out myocardial infarction protocol has been obtained. A cardiology consultation has been obtained and may require a stress test. 2. Type 2 diabetes mellitus, insulin-dependent. Her ____ shows that she takes a high dose of insulin. Right now, I will continue the glipizide and metformin and avoid insulin for right now. 3. Recent gastritis. The patient will be continued on her proton pump inhibitor. [place], [place] PATIENT HISTORY AND PHYSICAL EXAM NAME: JERMAINE AN UNIT #: [id number] ROOM: [facility] DOCTOR: HUGO WOODY MD BIRTHDATE: [birth year] HUGO WOODY MD CM:HISPHYS:PATIENT HISTORY AND PHYSICAL EXAMINATION 46 48 HUGO WOODY MD 07/17/172046 interface
--- NOTE | ~2017-07-17 | ST ---
[place], [place] EXERCISE STRESS TEST REPORT [id number] UNIT #: [id number] ROOM: [facility] DOCTOR: PATY ROBERTSON MD BIRTHDATE: [birth year] DOS: 07/18/2017 Lexiscan portion of the Lexiscan Cardiolite, 0.4 mg Lexiscan, duration of 10 seconds. Baseline cardiogram sinus rhythm with nonspecific ST-T changes. With Lexiscan, the patient had no chest discomfort, did have some shortness of breath. Blood pressure and heart rate response was normal. FINAL IMPRESSION: No EKG changes with Lexiscan. No chest pain with Lexiscan. No dysrhythmia with Lexiscan. Blood pressure and heart rate response was normal. Nuclear images will be reported separately. PATY ROBERTSON MD CM:STRESS:EXERCISE STRESS TEST REPORT [id number] PATY ROBERTSON MD
--- NOTE | ~2017-07-17 | CON ---
[place], [place] REPORT OF CONSULTATION [id number] UNIT #: [id number] ROOM: 515 DOCTOR: MIKKI HUFFMAN MDGHISLAINEBLAKE BIRTHDATE: [birth year] DOS: 07/17/2017 HISTORY OF PRESENT ILLNESS: A 67-year-old patient who has presented with chief complaint of chest pain, undergoing investigation, tightness in subxiphoid area. The patient with a history of anemia, status post previous transfusion. The patient with a history of diabetes mellitus and low H and H again this time. PAST MEDICAL HISTORY: Associated uterine CA, colon CA, history of hypertension, diabetes mellitus, gastroesophageal reflux, history of gastritis, multiple ulcerations in ascending colon and stricture, status post biopsy and no infiltration of carcinoma. PAST SURGICAL HISTORY: Cholecystectomy, sigmoid colon resection, hysterectomy. Recent EGD and colonoscopy last week. SOCIAL HISTORY: Nonsmoker, nonalcohol consumer. FAMILY HISTORY: Noncontributory. ALLERGIES: No known medication allergies. MEDICATIONS: Medication list has been reviewed. She used to be on Celebrex, diclofenac and nonsteroidal anti-inflammatories. REVIEW OF SYSTEMS: HEENT: Denies double vision, blurry vision. RESPIRATORY: Denies acute shortness of breath. CARDIOVASCULAR: Admits to atypical chest pain. DIGESTIVE SYSTEM: Colonic stricture and ulcerations on the right side, status post colon CA resection, sigmoid. PHYSICAL EXAMINATION: VITAL SIGNS: Obese patient. HEENT: Head normocephalic, nontraumatic. Mouth and buccal mucosa benign. NECK: Supple, no thyromegaly, no cervical lymphadenopathy. CHEST: Symmetric anatomy, equal expansion. No wheeze, no rhonchi. HEART: Normal sinus rhythm, no gallop, no murmur. ABDOMEN: Obese, soft. No hepato-organomegaly. Bowel sounds present. No rebound tenderness. EXTREMITIES: No cyanosis, no pedal edema. NEUROLOGIC: Alert, oriented to time, place, person. Sensory and motor intact. Cranial nerves 2 through 12 intact. IMPRESSION: Subxiphoid pain; chest pain, atypical; history of colonic ulceration on the right side; status post multiple nonsteroidal anti-inflammatories including diclofenac, Celebrex and others; status post previous biopsy with no infiltration of carcinoma; history of gastritis, reflux; Antral biopsies negative for H. pylori. PLAN AND DISCUSSION: PPI, Protonix 40 mg daily; Gaviscon 1 tablet Extra [place], [place] REPORT OF CONSULTATION NAME: JERMAINE AN [facility] #: [id number] UNIT #: [id number] ROOM: [facility] DOCTOR: NATHANAEL RICK,DYLAN BIRTHDATE: [birth year] Strength p.c. meals; elevation of the head of the bed 10 inches at all time; diabetic 1800 diet. Comprehensive metabolic panel reviewed; high glucose is noticed, BUN and creatinine of 11 and 1.1 has been seen; electrolytes, liver function test normal. INR 1.0. Troponin repeatedly negative. I trust that the majority of her chest pain is gastric and esophageal reflux in origin if cardiologic workup negative. The patient is advised to be off stated nonsteroidal anti-inflammatory, diclofenac and Celebrex. DYLAN HUFFMAN MD CM:CONSTR:REPORT OF CONSULTATION 39 07/18/17 0150 interface
--- NOTE | ~2017-07-17 | PR ---
[place], [place] PROGRESS NOTE NAME: JERMAINE AN [facility] #: [id number] UNIT #: [id number] ROOM: 515 DOCTOR: HUGO WOODY MD BIRTHDATE: [birth year] DOS: SUBJECTIVE: The patient is doing fine without any complaints this morning. She underwent a stress test. OBJECTIVE: VITAL SIGNS: Graphic trend shows a pressure of 155/72, pulse of 84, respirations 18, temperature 97.8. LUNGS: Clear. HEART: Regular. ABDOMEN: Obese, soft, nontender. EXTREMITIES: Without any edema. ASSESSMENT AND PLAN: 1. Epigastric pain, most likely from gastritis. The patient is encouraged to take the medication. 2. Coronary artery disease, rule out myocardial infarction protocol was done, which is negative. The patient was seen by Cardiology. A stress test was performed and has come back negative. The patient should be able to go home today. HUGO WOODY MD CM:PNTRANS [id number] HUGO WOODY MD 07/18/17 2345 interface
--- NOTE | ~2017-07-17 | PR ---
[place], [place] PROGRESS NOTE NAME: JERMAINE AN [facility] #: [id number] UNIT #: [id number] ROOM: 515 DOCTOR: HUGO WOODY MD BIRTHDATE: [birth year] DOS: 07/18/2017 DISCHARGE MEDICATIONS: The same as on admission. No new prescriptions were given. HOSPITAL COURSE: The patient is 67-year-old, comes in with complaints of chest pain. Please refer to H and P for details. After admission, rule out NV protocol was added. She was not given Lovenox because of recent GI bleed. Blood sugars in the 200s and 300s. We covered with her p.o. medications initially because her blood sugars were quite low in the beginning. A blood count and basic metabolic panel did not show any major abnormalities compared to the last visit. A consultation with Dr. Teixeira as well as Dr. Sloan was obtained. Dr. Teixeira felt that the patient needs to continue with the meds and avoid nonsteroidals. Dr. Sloan took the patient for a stress test, which has come back negative. Of note is that she has thrombocytopenia, which also could be from the high dose of nonsteroidals that she was on. This needs to be followed up as an outpatient with repeat CBCs. The patient to follow up with Dr. Lees as an outpatient. HUGO WOODY MD CM:PNTRANS [phone] HUGO WOODY MD 07/19/17 0004 interface
[2017-07-17 01:48] LABS: BASO % 0.3 % (0.0-1.0); EOS # 0.1 10*3/uL (0.0-0.4); EOS % 1.7 % (1.0-4.0); HEMATOCRIT 33.3 % (37.0-47.0); HEMOGLOBIN 9.5 g/dl (12.0-16.0); LYMPH # 1.3 10*3/uL (1.3-4.4); LYMPH % 17.9 % (27.0-41.0); MEAN CELL VOLUME 75.3 fl (81.0-99.0); MEAN CORPUSCULAR HGB 21.5 pg (27.0-31.0); MEAN CORPUSCULAR HGB CONC 28.5 g/dl (33.0-37.0); MEAN PLATELET VOLUME 10.7 fl (9.6-12.3); MONO # 0.5 10*3/uL (0.1-1.0); NEUT # 5.2 10*3/uL (2.3-7.9); PLATELET COUNT AUTOMATED 148 10*3/uL (130-400); RED BLOOD COUNT 4.42 10*6/uL (4.10-5.10); RED CELL DISTRI WIDTH 22.4 % (0-14.5); WHITE BLOOD COUNT 7.2 10*3/uL (4.8-10.8)
[2017-07-17 01:56] LABS: ACT PARTIAL THROMBO TIME 23.9 SECONDS (20.8-31.5)
[2017-07-17 02:02] LABS: ALBUMIN 3.1 gm/dl (3.1-4.5); ALKALINE PHOSPHATASE 89 U/L (45-117); BUN 10 mg/dl (7-24); CHLORIDE 108 mmol/L (98-107); CREATININE 1.08 mg/dL (0.55-1.02); POTASSIUM 3.3 mmol/L (3.5-5.1); SGOT/AST 18 IU/L (3-35); SGPT/ALT 17 U/L (12-78); SODIUM 144 mmol/L (136-145); TOTAL PROTEIN 6.8 gm/dL (6.4-8.2)
[2017-07-17 02:03] LABS: TROPONIN I < 0.015 ng/ml (<0.045)
--- NOTE | 2017-07-17 03:30 | NUR ---
Time: 329 A 67 year old FEMALE admitted to 5E under services of DR. BONG RICK,HUGO. Pt. arrived via CART from ER. Chief complaint: CHEST PAIN. GAVINO FORD
--- NOTE | 2017-07-17 04:16 | NUR ---
PATIENT GIVEN ATIVAN IN ER UNABLE TO VERIFY MEDICATIONS.
--- NOTE | 2017-07-17 04:30 | NUR ---
DR WOOYD NOTIFIED OF PATIENT BEING IN ROOM 515. ORDER RECEIVED TO CONSULT DR. HUFFMAN, MAKE NPO, CBC AT 12 NOON, AND START IV NORMAL SALINE AT 70CC/HR.
--- NOTE | 2017-07-17 06:25 | NUR ---
DR MARTINEZ NOTIFIED THAT PATIENTS BGM = 72. WAS STATED THAT IT WOULD BE ALRIGHT SINCE NOT GETTING FOOD OR MEDICATION.
--- NOTE | 2017-07-17 06:35 | NUR ---
DR. HUFFMAN NOTIFIED OF CONSULT, STATED THAT PATIENT CAN HAVE BREAKFAST AND NPO AFTER THAT. STATED IS UNABLE TO GET TO HER EARLY.
--- NOTE | 2017-07-17 08:30 | NUR ---
Head Up Operator Helper in to talk to patient. Patient states lives at HOME with HER . There are 12 steps in the home. Physician: DR OSWALD [facility] services: NONE Patient's level of ADLs: INDEPENDENT Patient has working utilities: YES DME: NONE Follow-up physician's appointment after d/c: PREFERS TO MAKE HER OWN APPT Does patient want to access PORTAL?: Discharge plan HOME. LATASHA RODRIGUEZ
--- NOTE | 2017-07-17 09:00 | NUR ---
PAGED AT THIS TIME.
[2017-07-17] MEDS ORDERED: VALSARTAN160 MG PO (09:56)
[2017-07-17] MEDS ORDERED: AMITIZA8 MCG PO (10:01)
[2017-07-17 13:29] LABS: BASO % 0.4 % (0.0-1.0); EOS # 0.1 10*3/uL (0.0-0.4); EOS % 2.5 % (1.0-4.0); HEMATOCRIT 34.8 % (37.0-47.0); LYMPH % 21.5 % (27.0-41.0); MEAN CELL VOLUME 75.8 fl (81.0-99.0); MEAN CORPUSCULAR HGB 21.8 pg (27.0-31.0); MEAN CORPUSCULAR HGB CONC 28.7 g/dl (33.0-37.0); MEAN PLATELET VOLUME 10.6 fl (9.6-12.3); MONO # 0.5 10*3/uL (0.1-1.0); MONO % 9.3 % (3.0-9.0); NEUT # 3.2 10*3/uL (2.3-7.9); NEUT % 66.1 % (47.0-73.0); PLATELET COUNT AUTOMATED 141 10*3/uL (130-400); RED BLOOD COUNT 4.59 10*6/uL (4.10-5.10); RED CELL DISTRI WIDTH 22.7 % (0-14.5); WHITE BLOOD COUNT 4.8 10*3/uL (4.8-10.8)
--- NOTE | 2017-07-17 18:07 | NUR ---
NOTIFIED DR HUFFMAN AGAIN OF CONSULT.
--- NOTE | 2017-07-17 19:30 | NUR ---
ASSUMED CARE OF PT AT THIS TIME, RESPS EASY AND NONLABORED WITH NO S/S OF DISTRESS CALL LIGHT WITH IN REACH
--- NOTE | 2017-07-17 20:53 | NUR ---
IN TO SEE PT, SEE NEW ORDERS
[2017-07-18] VITALS: BP 149/72
--- NOTE | 2017-07-18 06:55 | NUR ---
PT OFF THE FLOOR AT THIS TIME FOR TESTING
--- NOTE | 2017-07-18 07:39 | NUR ---
INFORMED CONSENT SIGNED FOR LEXISCAN STRESS TEST WITH DR. ROBERTSON. RESTING EKG NSR, HR 84, BP 112/88. PULSE OX 97% AND LUNGS CLEAR BUT DIMINISHED BILATERALLY. COMPLETED ONE MINUTE OF LEXISCAN PROTOCOL RECEIVING LEXISCAN 0.4MG OVER 10 SECONDS. NO ARRHYTHMIAS OR ST CHANGES NOTED. PT C/O SOB, WEIRD FEELING AND LIGHTHEADEDNESS. LAST RECOVERY HR 105, BP 118/80. WAITING NUCLEAR SCANNING IN STABLE CONDITION.
--- NOTE | 2017-07-18 10:40 | NUR ---
DR. WOODY NOTIFIED OF COMPLAINTS OF 5/10 HEADACHE. ORDERED TYLENOL 650 MG PO Q6 PRN FOR PAIN. ORDER READ BACK TO VERIFY.
[2017-07-18 12:00] VITALS: BP 155/72
--- NOTE | 2017-07-18 14:42 | NUR ---
CALLED TO INFORM NURSE THAT PT CAN GO HOME
--- NOTE | 2017-07-18 15:32 | NUR ---
DISCHARGED BY WHEEL CHAIR IN CARE OF .
== END 2017-07-18 15:32 | disposition home or self-care (01) | DRG 313 ==
LOC: ED 01:15 → EDHOLD 02:42 → 5E 02:42
PROVIDERS: Student in an Organized Health Care Education/Training Program; ADMIT Internal Medicine
PROC: 3E073KZ Introduction of Other Diagnostic Substance into Coronary Artery, Percutaneous Approach (ICD-10-PCS; principal; 2017-07-18)
PROC: 4A02XM4 Measurement of Cardiac Total Activity, External Approach (ICD-10-PCS; principal; 2017-07-18)
DX: R07.89 Other chest pain (principal); I25.10 Atherosclerotic heart disease of native coronary artery without angina pectoris; D69.59 Other secondary thrombocytopenia; I10 Essential (primary) hypertension; E11.9 Type 2 diabetes mellitus without complications; K21.9 Gastro-esophageal reflux disease without esophagitis; K29.70 Gastritis, unspecified, without bleeding; T39.395A Adverse effect of other nonsteroidal anti-inflammatory drugs [NSAID], initial encounter; G89.29 Other chronic pain; M54.9 Dorsalgia, unspecified; Z86.010 Personal history of colon polyps; Z79.4 Long term (current) use of insulin; Y92.89 Other specified places as the place of occurrence of the external cause; Z90.49 Acquired absence of other specified parts of digestive tract; Z90.710 Acquired absence of both cervix and uterus; Z85.42 Personal history of malignant neoplasm of other parts of uterus; Z85.038 Personal history of other malignant neoplasm of large intestine; Z87.11 Personal history of peptic ulcer disease

== ENCOUNTER → 2017-07-19 | Outpatient (CLI) | payer MEDICARE, OTHER ==
[~2017-07-19] MED LIST changes: +AMITIZA8 MCG PO; +VALSARTAN160 MG PO
== END | disposition home or self-care (01) ==
LOC: WOUNDCARE 01:08
DX: E11.621 Type 2 diabetes mellitus with foot ulcer (principal); L97.511 Non-pressure chronic ulcer of other part of right foot limited to breakdown of skin

== ENCOUNTER 2017-08-08 13:40 | Inpatient (IN) | payer MEDICARE, OTHER ==
[~2017-08-08] VITALS: Ht 162.5 cm; Wt 110.4 kg
--- NOTE | ~2017-08-08 | O ---
[place], [place] OPERATIVE NOTE NAME: JERMAINE AN UNIT #: [id number] ROOM: [place] [address] DOCTOR: OUMAR RAMACHANDRAN CRNA BIRTHDATE: [birth year] DOS: 08/10/2017 I was called to ICU for a lumbar puncture on this patient. Upon arrival, I found the patient to be unconscious, unresponsive, febrile. I spoke with Dr. Moreland, agreed medical treatment plan for rapid sequence induction, intubated the patient. 100 mg of lidocaine was used and 150 mg of propofol. Successful direct laryngoscopy with an 8.0 tube, taped at the right lip line at 22 cm. Positive bilateral breath sounds, positive placement by end tidal CO2 color metrics and chest x-ray. At that same time, triple lumen placement, right internal jugular was performed under sterile procedure, sterile gown, sterile gloves, sterile drape and a mask on anesthesia provider. Two attempts were made, passed triple lumen, secured, sutured in place and verified with chest x-ray. OUMAR RAMACHANDRAN CRNA CM:OPRECORD:OPERATIVE NOTE 1308 1401 OUMAR RAMACHANDRAN CRNA 08/11/17 1359 interface
--- NOTE | ~2017-08-08 | CON ---
[place], [place] REPORT OF CON[facility]ULTATION [id number] UN[facility] #: [id number] ROOM: [place] [address] DOCTOR: PRIYANKA RIVERA MD BIRTHDATE: [birth year] DOS: 08/09/2017 HISTORY OF PRESENT ILLNESS: I was called to evaluate this patient, who had a sudden collapse in her room on the 5th floor. The nurse had walked into the room to find her bent over the bed, having vomited and was unresponsive. A rapid response was called and I arrived to evaluate the patient after she had been repositioned in bed and monitor technician was in place. The patient was admitted to the hospital one day ago after an episode of some suspected transient ischemia. CT scan of the brain was negative. Today, she had an MRI of the brain, which was also negative. She had been complaining of some mild nausea, but had had no vomiting. There were no other complaints noted by the nurse and the patient was unable to provide any other information. PHYSICAL EXAMINATION: GENERAL: She is obese, well-nourished, well-developed female, extremely somnolent, though did answer simple questions for me. SKIN: Warm and dry and she had yellow emesis on the left side of her face from the vomiting. NECK: Supple. No jugular venous distention or adenopathy. CHEST: Symmetrical. LUNGS: Clear to auscultation and percussion. ABDOMEN: Obese, soft, nontender. Bowel sounds heard in all 4 quadrants. No masses appreciated. EXTREMITIES: No edema. No calf or thigh tenderness. NEUROLOGIC: Somnolent. Responds to simple questions. No lateralizing neurological signs. Pupils were equal and round, reactive to light and extraocular movements were full. IMAGING AND LABORATORY DATA: monitor and storage bin tender showed sinus tachycardia with a heart rate of 102. A 12-lead EKG was within normal limits, normal sinus rhythm, normal OH interval, normal QRS duration, normal QT, QTc. No evidence for acute occurrence of injury. I recommended arterial blood gases, comprehensive metabolic profile, troponin level, 12-lead EKG, CBC, differential, lipase, CT scan of the brain, 1 view chest x-ray, supplemental O2. PLAN: She was given Zofran 4 mg intravenously for the nausea and vomiting. Intravenous saline was ordered. I did speak with Dr. Low. Dr. Low was covering for Dr. Moreland and he asked that I consult with Dr. Alexander, the icing mixer. The patient was transferred to ICU in a guarded condition. I did discuss this patient with Dr. Low and also the health staff, revised of my findings and recommendations. [place], [place] REPORT OF CONSULTATION NAME: JERMAINE AN UNIT #: [id number] ROOM: [place] [address] DOCTOR: PRIYANKA RIVERA MD BIRTHDATE: [birth year] PRIYANKA RIVERA MD CM:CONSTR:REPORT OF CONSULTATION 0307 08/11/17 0155 interface
--- NOTE | ~2017-08-08 | EKG ---
[place], [place] ELECTROCARDIOGRAM REPORT NAME: JERMAINE AN UNIT #: [id number] ROOM: [place] [address] DOCTOR: TAMMY MERRILL MD BIRTHDATE: [birth year] DOS: 08/09/2017 TIME: 1939 hours. Underlying rhythm is normal sinus at 98 beats per minute. The tracing is within normal limits. No previous tracing is available for comparison. TAMMY MERRILL MD CM:EKGRPT:ELECTROCARDIOGRAM REPORT [id number] 1248 TAMMY MERRILL MD
--- NOTE | ~2017-08-08 | WRIGHTHP ---
[place], [place] PATIENT HISTORY AND PHYSICAL EXAM NAME: JERMAINE AN [facility] #: [id number] UNIT #: [id number] ROOM: 502 DOCTOR: HUGO WOODY MD BIRTHDATE: [birth year] DOS: 08/08/2017 HISTORY OF PRESENT ILLNESS: The patient is 67 years old. The patient is very well known to us. The patient states that she was sitting at home waiting for her friend to pick her up for a lunch and she noticed complete weakness of the right arm. She was unable to lift it at all. She had some numbness in the left side and she also had facial numbness, especially around the lips area. Her speech was quite garbled and it lasted for a few seconds and then resolved on its own. She says she decided to come into the Emergency Room. She denies having any chest pains, palpitations. She does not have any fever or chills, does not have any abdominal pain, nausea, any emesis. Her blood pressures have been running on the high side because she did not take any medicines yesterday. PAST MEDICAL HISTORY: Significant for: 1. History of GI bleed for which she was recently hospitalized. 2. Type 2 diabetes mellitus, insulin-dependent. 3. Coronary artery disease. 4. Benign hypertension. 5. Chronic back pain. MEDICATIONS: That she is on are aspirin 81 daily, glipizide 10 b.i.d., labetalol 50 b.i.d., Amitiza 8 mcg b.i.d., metformin 1000 b.i.d., omeprazole 40 daily, Carafate 1 gram b.i.d., valsartan 160 daily, vitamin E 800 units daily, insulin Tresiba 130 units daily, Victoza 1.8 ____ daily. SOCIAL HISTORY: Nonsmoker, does not use any alcohol. She lives at home with her . PHYSICAL EXAMINATION: GENERAL: The patient is awake and alert and oriented. VITAL SIGNS: Blood pressure is 170/86, pulse of 100, respirations 20, afebrile. LUNGS: Diminished breath sounds. No wheezes, rales or rhonchi heard. HEART: Regular. ABDOMEN: Obese, soft, nontender. EXTREMITIES: Without any edema. ASSESSMENT AND PLAN: 1. The patient with neurological event, most likely a transient ischemic attack, which had completely resolved by the time she arrived at the Emergency Room. The patient will have a workup including an MRI, carotid Doppler and echocardiogram this morning. A PT/OT consultation has also been obtained. 2. Type 2 diabetes mellitus with multiple risk factors. The patient is well controlled. Her hemoglobin A1c was 7.6 in morning. We will restart her home medications. 3. Benign hypertension, not very well controlled. We may have to readjust her medications. [place], [place] PATIENT HISTORY AND PHYSICAL EXAM NAME: JERMAINE AN [facility] #: [id number] UNIT #: [id number] ROOM: [facility] DOCTOR: HUGO WOODY MD BIRTHDATE: [birth year] HUGO WOODY MD CM:HISPHYS:PATIENT HISTORY AND PHYSICAL EXAMINATION 7 HUGO WOODY MD 08/09/17 0934 interface
--- NOTE | ~2017-08-08 | DS ---
[place], [place] DISCHARGE SUMMARY NAME: JERMAINE AN [facility] #: [id number] UNIT #: [id number] ROOM: [place] [address] DOCTOR: ISSA MALDONADO MD BIRTHDATE: [birth year] DOS: 08/10/2017 HOSPITAL COURSE: The patient is 67 years old. The patient is known to me from the last couple of admissions. She was admitted yesterday with TIA-like symptoms. Please see H and P for details. The patient arrived at the Emergency Room on the 7th evening with complaints of difficulty in moving her right arm and numbness in the left arm and perioral numbness. By the time she arrived, symptoms had already resolved after being evaluated in the ER with a negative CT. She was admitted for stroke workup. After admission, the patient did not have any neurological complaints. There were no signs of meningeal irritation on examination. No neurological deficits. The patient underwent an MRI of the brain, carotid Doppler and an echocardiogram. Carotid Doppler showed less than 50% stenosis. MRI of the brain was reported as negative and echocardiogram is also normal. She also did have a stress test about a month ago, which was negative. The patient also complained of elbow pain at a previous IV site. X-ray of the elbow was negative. Cardiac consultation with Dr. Pavon was obtained, which consult note is in the chart. The patient was given Tylenol without any improvement in her pain, so requested [place], which was given. Around 5:00 p.m., she developed some feeling that she was unable to move her arms, but she did not again have any deficits. She also was quite anxious and restless. One dose of Ativan 0.5 was given. On 7:30 she had a large emesis and was found slumped over on her bed. Rapid response was called and the patient was moved to the ICU. The patient continued to deteriorate when she got into the ICU, which continued worsening of her mental status and almost unresponsive and comatose with normal breathing. Saturations were maintained during the night, but she started spiking a high-grade fever up to about 105. The patient ID consultation was obtained and multiple IV antibiotics were given. CT of the abdomen and pelvis was ordered by Infectious Disease, which showed some evidence of colitis. No CBC is available. Basic metabolic panel was absolutely within normal limits. CBC is pending. No ESR or CRP has been ordered. No CT of the chest was done. Repeat CT of the head was negative. Because of the high-grade fever and change in mental status, almost comatose state with a Hay score of 3. The patient was intubated, even though she was not in acute respiratory failure for airway protection. This morning, the patient will be transferred to [facility] for further neurological workup as well as sepsis workup. [place], [place] DISCHARGE SUMMARY NAME: JERMAINE AN [facility] #: [id number] UNIT #: [id number] ROOM: [place] [address] DOCTOR: ISSA MALDONADO MD BIRTHDATE: [birth year] ISSA MALDONADO MD CM:ARJUN 0 05 ISSA MALDONADO MD 08/10/179 interface
[2017-08-08 13:48] VITALS: BP 155/106
[2017-08-08 14:26] LABS: BILIRUBIN NEGATIVE (NEGATIVE); BLOOD NEGATIVE (NEGATIVE); CLARITY CLEAR (CLEAR); COLOR YELLOW (YELLOW); GLUCOSE NEGATIVE (NEGATIVE); KETONE NEGATIVE (NEGATIVE); LEUKO ESTERASE 1+ (NEGATIVE); NITRITE NEGATIVE (NEGATIVE); SPECIFIC GRAVITY <= 1.005 (1.005-1.030); UROBILINOGEN 0.2 E.U./dl (0.2-1.0)
[2017-08-08 14:26] LABS: BASO % 0.4 % (0.0-1.0); EOS # 0.2 10*3/uL (0.0-0.4); EOS % 4.5 % (1.0-4.0); HEMATOCRIT 40.6 % (37.0-47.0); HEMOGLOBIN 12.1 g/dl (12.0-16.0); LYMPH # 1.1 10*3/uL (1.3-4.4); MEAN CELL VOLUME 75.2 fl (81.0-99.0); MEAN CORPUSCULAR HGB 22.4 pg (27.0-31.0); MEAN CORPUSCULAR HGB CONC 29.8 g/dl (33.0-37.0); MEAN PLATELET VOLUME 9.3 fl (9.6-12.3); MONO # 0.4 10*3/uL (0.1-1.0); MONO % 7.2 % (3.0-9.0); NEUT # 3.6 10*3/uL (2.3-7.9); NEUT % 66.5 % (47.0-73.0); PLATELET COUNT AUTOMATED 126 10*3/uL (130-400); RED CELL DISTRI WIDTH 21.2 % (0-14.5); WHITE BLOOD COUNT 5.4 10*3/uL (4.8-10.8)
[2017-08-08 14:35] LABS: RBC 0-2 rbc/hpf (0-2)
[2017-08-08 14:36] LABS: ACT PARTIAL THROMBO TIME 24.2 SECONDS (20.8-31.5)
[2017-08-08 14:42] LABS: ALBUMIN 3.6 gm/dl (3.1-4.5); ALKALINE PHOSPHATASE 95 U/L (45-117); BUN 8 mg/dl (7-24); CHLORIDE 104 mmol/L (98-107); CREATININE 1.05 mg/dL (0.55-1.02); POTASSIUM 4.3 mmol/L (3.5-5.1); SGOT/AST 21 IU/L (3-35); SGPT/ALT 21 U/L (12-78); SODIUM 138 mmol/L (136-145); TOTAL PROTEIN 7.5 gm/dL (6.4-8.2)
[2017-08-08 14:44] LABS: TROPONIN I < 0.015 ng/ml (<0.045)
[2017-08-08 15:46] VITALS: BP 180/100
--- NOTE | 2017-08-08 15:46 | NUR ---
PT IS LEAVING WITHOUT COMPLETING TX. SHE IS AWAKE AND ALERT. TELLS ME THAT SHE WILL NOT BE ADMITTED,AND WILL NOT RECEIVE TX FOR HER ELEVATED BLOOD PRESSURE.PT STATED THAT WE HAD 1 HOUR TO TAKE CARE OF HER. I INFORMED PT THAT TREATING HER BLOOD PRESSURE DID NOT MEAD THAT SHE HAD TO BE ADMITTED. SHE STILL DECIDED TO LEAVE. ANA LAURA FRANCO
--- NOTE | 2017-08-08 15:51 | NUR ---
The patient, JERMAINE AN, 67, [birth year], [id number], [id number], presented to the Emergency Department at 1342. The patient's Chief Complaint was ELEVATED BLOOD PRESSURE. The patient subsequently "Left Without Being Seen", at 1549. Treatment completed included EXAM,LAB TESTS,CHEST XRAY,EKG. The patient's reason for departing, prior to completion of treatment was "tired of waiting". Assessment of the patient's competence, for making the decision to refuse completion of previously requested exam and treatment, includes alert and oriented. The patient was assured of continued availability of assessment and/or treatment, should the patient decide to stay or return, by AT ANY TIME. Discussion included THE NEED TO STAY FOR TX OF HIGH BLOOD PRESSURE. The patient's response was WILL NOT STAY,SHE IS LEAVING NOW. The patient's disposition is Left Without Complete Rx, to the care of SELF. Arrangements have been made for the ED staff to "Call Back" the patient, to inquire about the patient's medical status and encourage JERMAINE AN, to seek medical attention, if this has not been completed. JANELL LEDBETTER
[2017-08-08 16:33] VITALS: BP 184/98
[2017-08-08 16:41] VITALS: BP 180/100
--- NOTE | 2017-08-08 16:45 | NUR ---
A 67, admitted to 5E, under the services of HUGO Sinha MD with a diagnosis of TIA. Chief complaint is WEAKNESS BILAT UPPER& LOWER EXTERMITIES. Patient arrived via stretcher from ER. Monitor applied. Initial assessment completed. Vital signs taken and recorded. HUGO SINHA MD notified of admission to the unit. Orders received. See assessment for past medical history, medications and allergies. Patient and/or family oriented to unit. [address] visitation policy reviewed. Clothing/patient valuable form completed. WANDY LEGER
[2017-08-08 20:00] VITALS: BP 180/98
--- NOTE | 2017-08-08 20:00 | NUR ---
BLOOD SUGAR 194
--- NOTE | 2017-08-08 20:11 | NUR ---
MANUAL BP 180/98. LABATALOL GIVEN PER ORDER. WILL MONITOR
--- NOTE | 2017-08-08 23:41 | NUR ---
DR WOODY NOTIFIED OF PATIENT C/O ARM PAIN AND REQUESTING MEDICATION. ORDER FOR TYLENOL AT THIS TIME
[2017-08-09] VITALS: BP 170/92
--- NOTE | 2017-08-09 00:18 | NUR ---
PATIENT MEDICATED WITH PRN TYLENOL FOR PAIN RATED AT A "15" ON A 0/10 PAIN SCALE
[2017-08-09 04:00] VITALS: BP 144/86
--- NOTE | 2017-08-09 04:32 | NUR ---
BLOOD SUGAR 211
[2017-08-09 08:00] VITALS: BP 170/86
--- NOTE | 2017-08-09 08:18 | NUR ---
Ems Director in to talk to patient. Patient states lives at HOME with HER . There are 12 steps in the home. Physician: DR OSWALD [facility]: NONE Patient's level of ADLs: INDEPENDENT Patient has working utilities: YES DME: NONE Follow-up physician's appointment after d/c: PREFERS TO MAKE HER OWN APPT Does patient want to access PORTAL?: Discharge plan HOME. LATASHA RODRIGUEZ
--- NOTE | 2017-08-09 08:55 | NUR ---
DR HOWARD'S OFFICE CALLED AND NOTIFIED OF CONSULT.
--- NOTE | 2017-08-09 11:21 | NUR ---
DR WOODY CALLED RE: PT REQUEST FOR PAIN MEDICATION.
--- NOTE | 2017-08-09 11:46 | NUR ---
DR WOODY CALLS UNIT. NEW ORDERS RECEIVED.
--- NOTE | 2017-08-09 15:10 | NUR ---
DR WOODY CALLED AND NOTIFIED OF XRAY, DOPPLER AND MRI RESULTS.
--- NOTE | 2017-08-09 15:30 | NUR ---
PHYSICAL THERAPY PAtient with multiple nurses at this time. Not medically appropriate for PT evaluation. Will attempt at a later date. Thank you for this referral. Saritha Hackett,PT
[2017-08-09 16:00] VITALS: BP 173/102
--- NOTE | 2017-08-09 17:50 | NUR ---
DR WOODY CALLED RE: PT STATES SHE CAN'T MOVE ARM OR LEGS. BUR SHE IS MOVING THEM. PT IS C/O OF ANXIETY AND PAIN. BP 170/100. ORDERS RECEIVED.
--- NOTE | 2017-08-09 19:35 | NUR ---
WALKED IN TO PATIENT LAYING SENIOR CARE OFF OF THE FOOT OF THE BED NOT RESPONDING TO ANY VERBAL OR PAINFUL STIMULI. SPEAKING LOW UNCOMPREHENSIBLE WORDS. VOMIT ON BED AND FLOOR. RAPID RESPONSE CALLED. RESPIRATIONS EASY AND REGULAR. VITAL SIGNS STABLE. DR STEELE TO THE FLOOR TO GIVE ORDERS. PATIENT TRANSFERRED TO THE ICU VIA THIS RN AND MACHINING TECHNICIAN VIOLA
[2017-08-09 20:28] LABS: ABG BASE EXCESS 0.8 mmol/L (-2.0-2.0); ABG HCO3 24.6 mmol/l (22-26); ABG O2 SATURATION 96.3 % (95-97); ARTERIAL BLOOD GAS PCO2 38.2 mmHg (35-45); ARTERIAL BLOOD GAS PH 7.424 (7.35-7.45)
[2017-08-09 20:30] VITALS: BP 168/82
--- NOTE | 2017-08-09 20:30 | NUR ---
PT RECEIVED FROM CT AFTER RAPID RESPONSE ON 5TH FLOOR. SHE IS AWAKE, BUT DROWSY, MOVES ALL EXTREMITIES, AND FOLLOWS COMMANDS.
[2017-08-09 20:41] LABS: ALBUMIN 3.7 gm/dl (3.1-4.5); ALKALINE PHOSPHATASE 90 U/L (45-117); BUN 8 mg/dl (7-24); CHLORIDE 102 mmol/L (98-107); CREATININE 0.94 mg/dL (0.55-1.02); LIPASE 252 U/L (73-393); SGOT/AST 20 IU/L (3-35); SGPT/ALT 24 U/L (12-78); SODIUM 138 mmol/L (136-145); TOTAL PROTEIN 7.7 gm/dL (6.4-8.2)
[2017-08-09 20:43] LABS: TROPONIN I < 0.015 ng/ml (<0.045)
--- NOTE | 2017-08-09 20:50 | NUR ---
LITER OF IVF INFUSED ORDERED DURING RAPID RESPONSE. SHER (ORDERED BY DR STEELE) THAT WAS INSERTED DURING RAPID RESPONSE ON 5TH FLOOR IS PATENT. URINE SAMPLES COLLECTED ORDERED. ZOFRAN GIVEN ORDERED FOR N/V. HOB ELEVATED. PT IN VIEW OF ICU STAFF.
[2017-08-09 20:59] LABS: BILIRUBIN NEGATIVE (NEGATIVE); BLOOD TRACE-LYSED (NEGATIVE); CLARITY CLEAR (CLEAR); COLOR YELLOW (YELLOW); GLUCOSE 1+ (NEGATIVE); KETONE NEGATIVE (NEGATIVE); LEUKO ESTERASE NEGATIVE (NEGATIVE); NITRITE NEGATIVE (NEGATIVE); PH 6.5 (5.0-9.0); UROBILINOGEN 0.2 E.U./dl (0.2-1.0)
--- NOTE | 2017-08-09 21:03 | NUR ---
PT MUMBLES "PRETTY GOOD" WHEN ASKED HOW HER STOMACH/NAUSEA FEELS AFTER ZOFRAN.
[2017-08-09 21:05] LABS: BACTERIA TRACE; WBC 0-2 wbc/hpf (0-5)
--- NOTE | 2017-08-09 21:16 | NUR ---
PT REQUESTING TO LAY ON HER SIDE. ASSISTED WITH POSITION OF COMFORT.
--- NOTE | 2017-08-09 21:36 | NUR ---
UPDATED DR VARELA ON PT CONDITION, LABWORK, CT HEAD, PCXR, VS, SMALL EMESIS, LACTIC ACID AND ONE LITER IVF GIVEN. ORDERS RECEIVED TO CHANGE PARACHUTE CUSHION INSTALLER TO DR MERRILL SHE IS A PT OF DR MERRILL'S.
--- NOTE | 2017-08-09 21:40 | NUR ---
CALLS IN AND UPDATED ON PT CONDITION.
--- NOTE | 2017-08-09 21:40 | NUR ---
ALSO TO NOTIFY DR MERRILL OF CONSULT IN AM OR TONIGHT IF NEEDED.
--- NOTE | 2017-08-09 22:01 | NUR ---
PT ASSISTED TO POSITION OF COMFORT. DOZING. HOB ELEVATED.
--- NOTE | 2017-08-09 22:07 | NUR ---
PT AWAKE, LOOKING AROUND AND TO WHERE HER BELONGINGS ARE SITTING. SPEECH IS STILL GARBLED BUT ANSWERS QUESTIONS.
--- NOTE | 2017-08-09 22:29 | NUR ---
COMPLETE BED CHANGE PT WAS INCONTINENT OF SMALL LIGHT BROWN STOOL. PT HAS PERIODS OF RESTLESSNESS AND YELLS OUT. SPEECH REMAINS GARBLED. MOVES ALL EXTREMITIES.
--- NOTE | 2017-08-09 23:02 | NUR ---
PT DOZING, BODY RELAXED. HR 106/MIN AND RR 18/MIN.
[2017-08-10] VITALS (8 sets, daily range): BP systolic 182–245; BP diastolic 92–122
--- NOTE | 2017-08-10 00:45 | NUR ---
DR. VARELA UPDATED ON PATIENT'S CONDITION. NEW ONSET FEVER, 102.5. EMESIS WITH POSSIBLE ASPIRATION. INCREASE IN RESPIRATORY RATE 28-32, ELEVATED BP AT 182/92 MANUALLY AND DID NOT RECEIVE PO BP MEDS AT 10PM. PATIENT AGITATED AND RESTLESS, DOES NOT FOLLOW COMMANDS. NEW ORDERS RECEIVED AND VERIFIED FOR BLOOD CULTURES X2, CATAPRES PATCH, TYLENOL SUPPOSITORY, CXR IN AM AND IV ZOSYN. WILL CONTINUE TO MONITOR. CAROLYNE DAMON RN
--- NOTE | 2017-08-10 03:20 | NUR ---
DR. VARELA NOTIFIED OF INCREASING TEMP 104.9 RECTALLY AND PLACEMENT OF PATIENT ON COOLING BLANKET. NEW ORDERS RECEIVED. CAROLYNE DAMON RN
--- NOTE | 2017-08-10 04:13 | NUR ---
DR. RUSSO NOTIFIED OF NEW CONSULT. PATIENT'S HISTORY, CLINICAL PRESENTATION, LABS, XRAYS, CT, MRI, US, MEDICATIONS, VITALS, CURRENT CONDITION REVIEWED. NEW ORDERS RECEIVED. CAROLYNE DAMON RN
--- NOTE | 2017-08-10 04:40 | NUR ---
, ALISHA NOTIFIED OF CHANGE IN PATIENT'S CONDITION AND CONSENT OBTAINED FOR LUMBAR PUNCTURE AND PICC LINE INSERTION. VERBALIZES UNDERSTANDING AND GAVE CELL PHONE NUMBER [phone] REQUESTING AN UPDATE FOLLOWING HER PROCEDURES. CAROLYNE DAMON RN
--- NOTE | 2017-08-10 04:50 | NUR ---
DR. VARELA NOTIFIED PER DR. RUSSO'S ORDER OF NEED FOR A LUMBAR PUNCTURE THIS MORNING TO RULE OUT ENCEPHALITIS. NURSING EXPLOSIVES OPERATOR NOTIFIED TO NOTIFY ANESTHESIA OF NEED FOR LUMBAR PUNCTURE PER DR. VARELA. CAROLYNE DAMON RN
--- NOTE | 2017-08-10 05:10 | NUR ---
DR. SPIVEY NOTIFIED OF CONSULT. CAROLYNE DAMON RN
--- NOTE | 2017-08-10 05:50 | NUR ---
DR. VARELA CALLED IN REQUESTING ONE CALL TO BE NOTIFIED TO CALL HIS CELL PHONE REGARDING TRANSFERRING THIS PATIENT TO ICU AT [facility] UNDER THE CARE OF THE HOSPITALIST. AWAITING NOTIFICATION OF POSSIBLE TRANSFER. CAROLYNE DAMON RN
[2017-08-10 06:41] LABS: ABG BASE EXCESS -3.9 mmol/L (-2.0-2.0); ABG HCO3 19.5 mmol/l (22-26); ABG O2 SATURATION 96.7 % (95-97); ARTERIAL BLOOD GAS PCO2 37.4 mmHg (35-45); ARTERIAL BLOOD GAS PH 7.355 (7.35-7.45)
--- NOTE | 2017-08-10 06:50 | NUR ---
DR. WOODY NOTIFIED OF CHANGE IN PATIENT'S CONDITION AND NEED FOR INTUBATION. ANESTHESIA SPOKE VIA PHONE TO DR. WOODY. CAROLYNE DAMON RN
--- NOTE | 2017-08-10 07:13 | NUR ---
, ALISHA NOTIFIED OF DETERIORATION OF PATIENT'S CONDITION, NEED TO INTUBATE PATIENT AND NEED TO TRANFER PATIENT TO [facility]. CONSENTS RECEIVED VIA PHONE, VERBALIZES UNDERSTANDING. CAROLYNE DAMON RN
--- NOTE | 2017-08-10 07:42 | NUR ---
PER DR WOODY, SEND PT NOW, [facility] TO DO LUMBAR PUNCTURE
[2017-08-10 08:11] LABS: ABG HCO3 19.7 mmol/l (22-26); ABG O2 SATURATION 99.7 % (95-97); ARTERIAL BLOOD GAS PCO2 38.6 mmHg (35-45); ARTERIAL BLOOD GAS PH 7.345 (7.35-7.45)
--- NOTE | 2017-08-10 08:18 | NUR ---
PHYSICAL THERAPY Referral rceived but eval not completed as she was having testing 08/09/17 and now condition has deteriorated and she is being sent to [facility]. Erica Escobar, PT
[2017-08-10 08:45] LABS: HEMATOCRIT 42.6 % (37.0-47.0); HEMOGLOBIN 12.6 g/dl (12.0-16.0); MEAN CELL VOLUME 74.9 fl (81.0-99.0); MEAN CORPUSCULAR HGB 22.1 pg (27.0-31.0); MEAN CORPUSCULAR HGB CONC 29.6 g/dl (33.0-37.0); PLATELET COUNT AUTOMATED 146 10*3/uL (130-400); RED BLOOD COUNT 5.69 10*6/uL (4.10-5.10); RED CELL DISTRI WIDTH 21.7 % (0-14.5); WHITE BLOOD COUNT 15.9 10*3/uL (4.8-10.8)
[2017-08-10 09:07] LABS: BASOPHILS 1 % (0-1); TOTAL CELLS COUNTED 100 #CELLS
[2017-08-10 09:08] LABS: MICROCYTOSIS SLIGHT; PLATELET SUFFICIENCY NORMAL (NORMAL); POLYCHROMASIA SLIGHT
--- NOTE | 2017-08-10 09:15 | NUR ---
AT BEGINNING OF MY SHIFT ANESTHESIA WAS HERE TO PERFORM LUMBAR PUNCTURE. ABG'S HAD BEEN DONE. PT WAS BARELY RESPONSIVE AND THE PREVIOUS SHIFT HAD TALKED TO DR WOODY WHO WANTED PT INTUBATED AND MLC INSERTED. SHE SAID TO HOLD OFF ON THE LP PT HAD ALREADY HAD A BED ASSIGNED AT [facility]. ANESTHESIA INTUBATED PT WITH A SZ 8 ETT, 22 AT THE LIP. AN OGT WAS PLACED AND ATTACHED TO LIWS, DRAINING LIGHT GREEN LIQUID. HER HR/BP/TEMP REMAINED ELEVATED. SEE ALL APPROPRIATE INTERVENTIONS. A CARDIZEM BOLUS AND DRIP WERE GIVEN. DR WOODY CAME TO SEE PATIENT. A RIJ MLC WAS PLACED. CXR WAS DONE. UPON TRANSFER SHE HAD CARDIZEM INFUSING AT 10MG/HR AND NS AT 100/HR, AND PROPOFOL AT 40MCG/KG/MIN. SHE HAD HAD DOSES OF VANCOMYCIN,ACYCLOVIR,ZOSYN, ROCEPHIN AND AMPICILLIN. DR RUSSO CALLED IN AND WAS NOTIFIED THAT LP WASN'T DONE AND THAT PT BEING TRANSFERRED TO [facility]. SEE ALL APPROPRIATE INTERVENTIONS.
--- NOTE | 2017-08-10 09:27 | NUR ---
PT DISCHARGED IN STABLE CONDITION, VIA [facility].
--- NOTE | 2017-08-10 09:50 | NUR ---
HAS BEEN NOTIFIED THAT PATIENT HAS LEFT WITH ALL OF HER BELONGINGS. REPORT HAS BEEN GIVEN TO NENITA AT [facility].
== END 2017-08-10 09:27 | disposition short-term general hospital (02) | DRG 69 ==
LOC: ED 13:40 → EDHOLD 16:04 → ICCU 16:04 → 5E 16:04 → ICCU 08-09 20:00
PROVIDERS: Emergency Medicine Emergency Medical Services; Internal Medicine; Student in an Organized Health Care Education/Training Program; ADMIT Internal Medicine
PROC: 5A1935Z Respiratory Ventilation, Less than 24 Consecutive Hours (ICD-10-PCS; principal; 2017-08-10)
PROC: 0BH17EZ Insertion of Endotracheal Airway into Trachea, Via Natural or Artificial Opening (ICD-10-PCS; principal; 2017-08-10)
PROC: 02HV33Z Insertion of Infusion Device into Superior Vena Cava, Percutaneous Approach (ICD-10-PCS; principal; 2017-08-10)
DX: G45.9 Transient cerebral ischemic attack, unspecified (principal); Z68.41 Body mass index [BMI] 40.0-44.9, adult; I25.10 Atherosclerotic heart disease of native coronary artery without angina pectoris; E11.9 Type 2 diabetes mellitus without complications; I10 Essential (primary) hypertension; G89.29 Other chronic pain; M54.9 Dorsalgia, unspecified; K52.9 Noninfective gastroenteritis and colitis, unspecified; E66.9 Obesity, unspecified; K21.9 Gastro-esophageal reflux disease without esophagitis; Z85.038 Personal history of other malignant neoplasm of large intestine; Z85.42 Personal history of malignant neoplasm of other parts of uterus; Z90.49 Acquired absence of other specified parts of digestive tract; Z90.710 Acquired absence of both cervix and uterus; Z83.3 Family history of diabetes mellitus; Z82.49 Family history of ischemic heart disease and other diseases of the circulatory system; Z79.82 Long term (current) use of aspirin; Z79.84 Long term (current) use of oral hypoglycemic drugs; Z79.4 Long term (current) use of insulin; Z79.899 Other long term (current) drug therapy

== ENCOUNTER 2017-09-12 10:39 | Emergency (ER) | payer MEDICARE, OTHER ==
[~2017-09-12] VITALS: Ht 162.5 cm; Wt 108.0 kg
[2017-09-12] MEDS ORDERED: NORCO 5-325 TA1 EACH PO (12:48)
== END 2017-09-12 13:33 | disposition home or self-care (01) ==
LOC: ED 10:39
DX: M25.512 Pain in left shoulder (principal); Z90.49 Acquired absence of other specified parts of digestive tract; Z90.710 Acquired absence of both cervix and uterus; Z79.84 Long term (current) use of oral hypoglycemic drugs; Z79.82 Long term (current) use of aspirin; Z79.4 Long term (current) use of insulin

== ENCOUNTER 2017-09-21 10:02 | Emergency (ER) | payer MEDICARE, OTHER ==
[~2017-09-21] VITALS: Ht 162.5 cm; Wt 104.3 kg
[~2017-09-21 10:02] MED LIST changes: +NORCO 5-325 TA1 EACH PO
[2017-09-21] MEDS ORDERED: NORCO 5-325 TA1 EACH PO (10:11)
[2017-09-21] MEDS ORDERED: NORCO 10-325 T1 EACH PO (12:33)
== END 2017-09-21 13:53 | disposition home or self-care (01) ==
LOC: ED 10:02
DX: S46.811A Strain of other muscles, fascia and tendons at shoulder and upper arm level, right arm, initial encounter (principal); I10 Essential (primary) hypertension; K21.9 Gastro-esophageal reflux disease without esophagitis; E11.65 Type 2 diabetes mellitus with hyperglycemia; Z86.73 Personal history of transient ischemic attack (TIA), and cerebral infarction without residual deficits; Z79.82 Long term (current) use of aspirin; Z79.84 Long term (current) use of oral hypoglycemic drugs; Z79.899 Other long term (current) drug therapy; Z85.038 Personal history of other malignant neoplasm of large intestine; Z85.42 Personal history of malignant neoplasm of other parts of uterus; Z90.710 Acquired absence of both cervix and uterus; Z90.49 Acquired absence of other specified parts of digestive tract; X58.XXXA Exposure to other specified factors, initial encounter; Y93.89 Activity, other specified; Y92.89 Other specified places as the place of occurrence of the external cause; Y99.8 Other external cause status

== ENCOUNTER 2017-09-26 14:34 | Inpatient (IN) | payer MEDICARE, OTHER ==
[~2017-09-26] VITALS: Ht 162.5 cm; Wt 103.6 kg
--- NOTE | ~2017-09-26 | CON ---
[place], [place] REPORT OF CON[facility]ULTATION [id number] #: [id number] ROOM: 412 DOCTOR: TAMMY MERRILL MD BIRTHDATE: [birth year] DOS: 09/27/2017 HISTORY OF PRESENT ILLNESS: This is a 67-year-old -[place] woman who was in this hospital in July of this year. At that time, she had presented with some atypical symptoms and had a Lexiscan Cardiolite study, which demonstrated normal LV systolic function and normal perfusion images. She has a long morbid obesity, longstanding essential type 2 diabetes mellitus, essential hypertension and had a colon cancer. She has never had a heart attack, heart failure. She had loss of consciousness for about 3 days and was transferred to [place] where she stayed for about a week. She thinks she had a stroke, but she is not clear what the diagnosis was. She came to the hospital because of bilateral shoulder pain and also had been feeling weak. She is unable to lift her left shoulder beyond 75 degrees and there is no fever or chills. She has not had any anterior chest pain, palpitation, PND, orthopnea or swelling of the lower extremities. She does not smoke nor does she drink alcoholic beverages. HOME MEDICATIONS: Include amitriptyline, aspirin, atorvastatin, glipizide, labetalol, Amitiza, metformin, omeprazole, phenytoin, valsartan, vitamin E, Tresiba insulin and Victoza. PHYSICAL EXAMINATION: GENERAL: Examination of the patient who is a very pleasant, alert, oriented. She is moderately obese. She has ecchymosis over the forehead around the right eye, which she said it is resulted from head hitting into a wall while running to the bathroom for urinary urgency. VITAL SIGNS: She has normal temperature. Pulse is regular at 72 beats per minute, blood pressure 172/78, previous blood pressure is 142/80. NECK: Normal JVP, no bruit in the neck. HEART: There is no cardiomegaly, no murmurs are present. EXTREMITIES: There is no edema of the lower extremity. RESPIRATORY: Lungs are clear to percussion and auscultation. ABDOMEN: Supple, nontender. MUSCULOSKELETAL: She is unable to extend her left shoulder about 70 degrees and on the right side, it is a little better, but she has marked left subacromial tenderness. This is highly suggestive of subacromial bursitis. She probably has similar problem on the right side. ECG showed no obvious abnormality and troponin levels were normal. IMPRESSION: This patient's shoulder pains are most likely due to a subacromial bursitis and I think she may benefit from NSAIDs or injection of the bursa and physical therapy. I do not feel this is related to the heart. No further cardiac workup is recommended. I thank for this consult. [place], [place] REPORT OF CONSULTATION NAME: JERMAINE AN UNIT #: [id number] ROOM: 412 DOCTOR: TAMMY MERRILL MD BIRTHDATE: [birth year] TAMMY MERRILL MD CM:CONSTR:REPORT OF CONSULTATION 0944 09/27/17 1544 interface
--- NOTE | ~2017-09-26 | EKG ---
[place], [place] ELECTROCARDIOGRAM REPORT NAME: JERMAINE AN UNIT #: [id number] ROOM: 412 DOCTOR: MINNA RICK,EMANUEL BIRTHDATE: [birth year] DOS: 09/27/2017 TIMES: 0701 hours. IMPRESSION: 1. Sinus rhythm. 2. Nonspecific ST-T changes. 3. Normal QT interval. EMANUEL BUITRAGO MD CM:EKGRPT:ELECTROCARDIOGRAM REPORT 1406 1736 EMANUEL BUITRAGO MD
--- NOTE | ~2017-09-26 | WRIGHTHP ---
[place], [place] PATIENT HISTORY AND PHYSICAL EXAM NAME: JERMAINE AN [facility] #: [id number] UNIT #: [id number] ROOM: 412 DOCTOR: SUNITA VARELA MD BIRTHDATE: [birth year] DOS: 09/26/2017 HISTORY OF PRESENT ILLNESS: The patient is a 67-year-old female with history of:] 1. Obesity. 2. GI bleed. The patient's GI bleed apparently was related to using NSAIDs in the past. 3. History of type 2 diabetes mellitus. 4. Coronary artery disease of [place] vessels. 5. Benign essential hypertension. 6. Chronic back pains. 7. History of ulceration and stricture of the ascending colon on colonoscopy by Dr. Teixeira. 8. History of thrombocytopenia. 9. GERD and esophagitis. The patient presented to the Emergency Department at [facility] with mental confusion and bumping into things and had ecchymosis on her face. Earlier patient was complaining of dark colored urine and she had a Maier catheter placed at home with a urine bag. In the ER, the patient was found to have urinary tract infection, possibly causing mental confusion and she was recommended for admission and further management. The patient had an unsteady gait and she lives at home. After admission, the patient says she is starting to feel somewhat better and that she lost control of her bowels just this morning and had diarrhea, only one episode. REVIEW OF SYSTEMS: LUNGS: No increasing shortness of breath. GASTROINTESTINAL: No nausea, vomiting, but she had one loose bowel stool this morning. CARDIOVASCULAR: No chest pains or palpitations. ALLERGIES: No known drug allergies. PHYSICAL EXAMINATION: GENERAL: Alert, oriented x 3, with ecchymosis on her face, morbid obesity, generalized weakness. VITAL SIGNS: Blood pressure 172/78, heart rate 67 beats per minute, breathing 20 times per minute, temperature 98 degrees Fahrenheit, HEENT AND NECK: Extraocular movements are intact. Sclerae are anicteric. Oral mucosa is moist and clean. No obvious facial weakness. Neck is supple without any lymphadenopathy. No thyromegaly. No JVD. No carotid arterial bruits. LUNGS: Clear to auscultation. No wheezing. No rhonchi. CARDIOVASCULAR SYSTEM: Heart rate is regular in rate and rhythm. S1 and S2 normally audible. No significant murmur or any other abnormal cardiac sounds. ABDOMEN: Soft, nontender. No obvious organomegaly. Bowel sounds are present. No obvious herniation. EXTREMITIES: Without significant cyanosis or edema. Warm to touch. CENTRAL NERVOUS SYSTEM: Alert and oriented x 3. Cranial nerves II-XII are intact. Speech is normal. The patient is able to move all extremities. Normal [place], [place] PATIENT HISTORY AND PHYSICAL EXAM NAME: JERMAINE AN [facility] #: [id number] UNIT #: [id number] ROOM: [facility] DOCTOR: SUNITA VARELA MD BIRTHDATE: [birth year] muscle strength. Deep tendon reflexes are equal on both sides. Plantars were downgoing. LABORATORY DATA: Cardiac enzymes have been negative. CT of the head without acute abnormality. CT of the neck without acute abnormality. IMPRESSION: 1. The patient developed some bilateral arm pains during the night, which was evaluated by coach mechanic, Dr. Bradford and he thinks she has bursitis involving both shoulders, probably subacromial bursitis, which is to be evaluated by Orthopedic Surgery, but Dr. Pavon is out of town for 1 more week. 2. Urinary tract infection and urine retention, being treated with a straight catheterization every shift and patient started urinating by herself. Urine culture is still pending and she is being treated with Rocephin. 3. Morbid obesity with generalized weakness and failure to thrive. The patient to work with Physical Therapy. 4. Mental confusion, apparently delirium from urinary tract infection, which is being treated and patient is improving. 5. Benign essential hypertension. Blood pressure is being monitored and treated and controlled. 6. Type 2 diabetes mellitus. Blood sugars are monitored and treated as necessary. 7. Urine retention, being treated with straight catheterization. The patient is starting to urinate on her own, probably related to urinary infection. SUNITA VARELA MD CM:HISPHYS:PATIENT HISTORY AND PHYSICAL EXAMINATION 1046 1205 SUNITA VARELA MD 09/27/17 1205 interface
--- NOTE | ~2017-09-26 | DS ---
[place], [place] DISCHARGE SUMMARY NAME: JERMAINE AN [facility] #: [id number] UNIT #: [id number] ROOM: 412 DOCTOR: NICHOLE RICKSUNITA J BIRTHDATE: [birth year] DOS: DISCHARGE DIAGNOSES: 1. Bilateral shoulder and arm pains related to shoulder orthopedic issues. Needs outpatient orthopedic consult. She was seen by clinical laboratory aide, Dr. Bradford. 2. Urinary tract infection along with urine retention. Urine culture grew Klebsiella pneumoniae sensitive to all antibiotics. 3. Urine retention for which the patient was straight cathed every shift with residual and finally nursing staff stopped straight cathing her because she started urinating on her own. I will check a post-voidal residual volume with bladder scan before discharging her to home today. 4. Urinary tract infection with Klebsiella pneumoniae to be treated with Bactrim-DS as an outpatient. She was receiving Rocephin during her stay at the hospital. Cardiac enzymes were negative. The patient had bilateral arm pains which are considered to be an orthopedic issue and a shoulder issue by clinical laboratory aide, Dr. Bradford. 5. Obesity. The patient worked with dietary. 6. History of gastrointestinal bleed with use of NSAIDs in the past. 7. Type 2 diabetes mellitus. Blood sugars are reasonably controlled. 8. Benign essential hypertension with controlled blood pressures with treatment. The patient also has past medical history of ulceration and stricture at the ascending colon on colonoscopy by Dr. Teixeira in the past. 9. History of thrombocytopenia. 10. History of gastroesophageal reflux disease and esophagitis. 11. History of coronary artery disease of the [place] vessels. The patient is feeling much better and being discharged to home to follow up with her PCP. DISCHARGE MANAGEMENT: Bactrim DS b.i.d. for 5 days, losartan 100 mg a day, Lipitor 80 mg a day, Lubiprostone 8 mcg daily, labetalol 200 mg daily, aspirin 81 mg a day, metformin 1000 mg b.i.d., glipizide 10 mg b.i.d., Dilantin 100 mg 3 times a day, omeprazole 40 mg a day, amitriptyline 10 mg a day. [place], [place] DISCHARGE SUMMARY NAME: JERMAINE AN [facility] #: [id number] UNIT #: [id number] ROOM: 412 DOCTOR: SUNITA VARELA MD BIRTHDATE: [birth year] SUNITA VARELA MD CM:ARJUN 1753 20 SUNITA VARELA MD 09/28/172120 interface
--- NOTE | ~2017-09-26 | PR ---
[place], [place] PROGRESS NOTE NAME: JERMAINE AN [facility] #: [id number] UNIT #: [id number] ROOM: 412 DOCTOR: TAMMY MERRILL MD BIRTHDATE: [birth year] DOS: 09/28/2017 SUBJECTIVE: She has no chest pain, breathing is fine. Shoulders are still painful. She has been walking around without any symptoms, but only has limited use of her left shoulder; use of right shoulder is somewhat limited as well. PHYSICAL EXAMINATION: GENERAL: This is a patient who is well. VITAL SIGNS: Pulse is 96 and regular, blood pressure 164/78. LUNGS: Clear. EXTREMITIES: Left subacromial area is very tender. She is not able to adduct her left arm beyond 70 degrees and is very painful. IMPRESSION: This patient does not have any acute coronary issues. She probably has cervical acromial bursitis and I think there may be a rotator cuff tear/injury and MRI should be obtained. I discussed this with Dr. Lan. TAMMY MERRILL MD CM:PNTRANS 1149 1304 TAMMY MERRILL MD 09/28/17 1304 interface
--- NOTE | ~2017-09-26 | EKG ---
[place], [place] ELECTROCARDIOGRAM REPORT NAME: JERMAINE AN UNIT #: [id number] ROOM: 412 DOCTOR: MINNA RICK,EMANUEL BIRTHDATE: [birth year] DOS: 09/26/2017 TIME: 1516 hours. IMPRESSION: 1. Sinus rhythm. 2. Probably left ventricular hypertrophy. 3. Nonspecific ST-T changes. 4. Baseline artifacts. EMANUEL BUITRAGO MD CM:EKGRPT:ELECTROCARDIOGRAM REPORT 1405 1734 EMANUEL BUITRAGO MD
[~2017-09-26 14:34] MED LIST changes: +NORCO 10-325 T1 EACH PO; +VICTOZA 2-0.6 MG/0.1 SQ; -VICTOZA6 MG/ML SC
[2017-09-26 14:47] VITALS: BP 154/82
[2017-09-26 15:07] LABS: BILIRUBIN NEGATIVE (NEGATIVE); BLOOD 3+ (NEGATIVE); CLARITY TURBID (CLEAR); COLOR RED (YELLOW); GLUCOSE 3+ (NEGATIVE); KETONE TRACE (NEGATIVE); LEUKO ESTERASE TRACE (NEGATIVE); NITRITE POSITIVE (NEGATIVE); PH 6.5 (5.0-9.0)
[2017-09-26 15:29] LABS: RBC TNTC rbc/hpf (0-2)
[2017-09-26 15:36] LABS: BASO % 0.3 % (0.0-1.0); EOS # 0.2 10*3/uL (0.0-0.4); HEMATOCRIT 37.8 % (37.0-47.0); HEMOGLOBIN 11.8 g/dl (12.0-16.0); LYMPH # 1.1 10*3/uL (1.3-4.4); LYMPH % 16.8 % (27.0-41.0); MEAN CELL VOLUME 74.3 fl (81.0-99.0); MEAN CORPUSCULAR HGB 23.2 pg (27.0-31.0); MEAN CORPUSCULAR HGB CONC 31.2 g/dl (33.0-37.0); MEAN PLATELET VOLUME 9.8 fl (9.6-12.3); MONO # 0.5 10*3/uL (0.1-1.0); MONO % 6.9 % (3.0-9.0); NEUT # 4.9 10*3/uL (2.3-7.9); NEUT % 72.7 % (47.0-73.0); PLATELET COUNT AUTOMATED 185 10*3/uL (130-400); RED BLOOD COUNT 5.09 10*6/uL (4.10-5.10); RED CELL DISTRI WIDTH 18.6 % (0-14.5); WHITE BLOOD COUNT 6.7 10*3/uL (4.8-10.8)
[2017-09-26 15:44] LABS: ACT PARTIAL THROMBO TIME 21.7 SECONDS (20.8-31.5)
[2017-09-26 15:53] LABS: ALBUMIN 3.1 gm/dl (3.1-4.5); ALKALINE PHOSPHATASE 137 U/L (45-117); BUN 7 mg/dl (7-24); CHLORIDE 104 mmol/L (98-107); CREATININE 0.97 mg/dL (0.55-1.02); LIPASE 408 U/L (73-393); POTASSIUM 3.6 mmol/L (3.5-5.1); SGOT/AST 25 IU/L (3-35); SGPT/ALT 27 U/L (12-78); SODIUM 137 mmol/L (136-145); TOTAL PROTEIN 7.3 gm/dL (6.4-8.2)
[2017-09-26 15:54] LABS: TROPONIN I < 0.015 ng/ml (<0.045)
[2017-09-26 16:26] VITALS: BP 168/76
[2017-09-26 16:56] VITALS: BP 158/82
[2017-09-26 17:45] VITALS: BP 156/96
[2017-09-26 18:00] VITALS: BP 156/96
[2017-09-26] MEDS ORDERED: LABETALOL HCL200 MG PO (18:37)
[2017-09-26] MEDS ORDERED: OMEPRAZOLE20 M2 PO (18:40)
[2017-09-26] MEDS ORDERED: DILANTIN100 MG PO (18:50)
[2017-09-26] MEDS ORDERED: AMITRIPTYLINE10 MG PO (18:50)
[2017-09-26] MEDS ORDERED: LIPITOR80 MG PO (18:51)
[2017-09-26 20:00] VITALS: BP 184/72
[2017-09-27] VITALS: BP 152/67
[2017-09-27 02:09] VITALS: BP 142/80
[2017-09-27 03:59] LABS: CKMB 2.9 ng/ml (0.5-3.6)
[2017-09-27 04:05] LABS: TROPONIN I < 0.015 ng/ml (<0.045)
[2017-09-27 06:53] LABS: BASO % 0.5 % (0.0-1.0); EOS # 0.3 10*3/uL (0.0-0.4); EOS % 4.4 % (1.0-4.0); HEMATOCRIT 37.8 % (37.0-47.0); HEMOGLOBIN 11.5 g/dl (12.0-16.0); LYMPH # 1.5 10*3/uL (1.3-4.4); LYMPH % 25.9 % (27.0-41.0); MEAN CELL VOLUME 76.2 fl (81.0-99.0); MEAN CORPUSCULAR HGB 23.2 pg (27.0-31.0); MEAN CORPUSCULAR HGB CONC 30.4 g/dl (33.0-37.0); MONO # 0.5 10*3/uL (0.1-1.0); MONO % 8.2 % (3.0-9.0); NEUT # 3.6 10*3/uL (2.3-7.9); NEUT % 60.7 % (47.0-73.0); PLATELET COUNT AUTOMATED 166 10*3/uL (130-400); RED BLOOD COUNT 4.96 10*6/uL (4.10-5.10); RED CELL DISTRI WIDTH 18.5 % (0-14.5); WHITE BLOOD COUNT 5.9 10*3/uL (4.8-10.8)
[2017-09-27 07:05] LABS: BUN 6 mg/dl (7-24); CHLORIDE 105 mmol/L (98-107); CREATININE 0.89 mg/dL (0.55-1.02); POTASSIUM 3.4 mmol/L (3.5-5.1); SODIUM 142 mmol/L (136-145)
[2017-09-27 07:08] LABS: CKMB 3.2 ng/ml (0.5-3.6)
[2017-09-27 07:11] LABS: TROPONIN I < 0.015 ng/ml (<0.045)
[2017-09-27 08:00] VITALS: BP 172/78
[2017-09-27 09:37] LABS: CKMB 3.1 ng/ml (0.5-3.6); TROPONIN I < 0.015 ng/ml (<0.045)
[2017-09-27 12:00] VITALS: BP 134/78
[2017-09-27 16:00] VITALS: BP 143/68
[2017-09-27 20:00] VITALS: BP 156/70
[2017-09-28] VITALS: BP 161/69
[2017-09-28 08:00] VITALS: BP 160/80; BP 164/78
[2017-09-28 12:00] VITALS: BP 154/78; BP 160/72
[2017-09-28 16:00] VITALS: BP 152/76; BP 157/70
[2017-09-28] MEDS ORDERED: SEPTDS PO (17:44)
== END 2017-09-28 18:15 | disposition home or self-care (01) | DRG 558 ==
LOC: ED 14:34 → EDHOLD 16:38 → 4E 16:38
PROVIDERS: Emergency Medicine; Internal Medicine; Internal Medicine Cardiovascular Disease
DX: M75.52 Bursitis of left shoulder (principal); S09.90XA Unspecified injury of head, initial encounter; E66.01 Morbid (severe) obesity due to excess calories; E11.9 Type 2 diabetes mellitus without complications; G89.29 Other chronic pain; B96.1 Klebsiella pneumoniae [K. pneumoniae] as the cause of diseases classified elsewhere; N39.0 Urinary tract infection, site not specified; I25.10 Atherosclerotic heart disease of native coronary artery without angina pectoris; R26.81 Unsteadiness on feet; I10 Essential (primary) hypertension; M54.9 Dorsalgia, unspecified; X58.XXXA Exposure to other specified factors, initial encounter; M75.51 Bursitis of right shoulder; K21.0 Gastro-esophageal reflux disease with esophagitis; R33.9 Retention of urine, unspecified; R62.7 Adult failure to thrive; Z79.82 Long term (current) use of aspirin; Z79.899 Other long term (current) drug therapy; Z85.038 Personal history of other malignant neoplasm of large intestine; Z85.42 Personal history of malignant neoplasm of other parts of uterus; Z86.73 Personal history of transient ischemic attack (TIA), and cerebral infarction without residual deficits; Z90.49 Acquired absence of other specified parts of digestive tract; Z90.710 Acquired absence of both cervix and uterus; Z82.49 Family history of ischemic heart disease and other diseases of the circulatory system; Z83.3 Family history of diabetes mellitus; Y93.89 Activity, other specified; Y92.89 Other specified places as the place of occurrence of the external cause; Y99.8 Other external cause status; Z68.39 Body mass index [BMI] 39.0-39.9, adult

== ENCOUNTER 2017-10-15 08:02 | Emergency (ER) | payer OTHER ==
[~2017-10-15] VITALS: Wt 90.7 kg
[~2017-10-15 08:02] MED LIST changes: +AMITRIPTYLINE10 MG PO; +DILANTIN100 MG PO; +LABETALOL HCL200 MG PO; +LIPITOR80 MG PO; +OMEPRAZOLE20 M2 PO; +SEPTDS PO
[2017-10-15 08:26] LABS: BASO % 0.1 % (0.0-1.0); EOS # 0.2 10*3/uL (0.0-0.4); EOS % 2.7 % (1.0-4.0); HEMATOCRIT 35.9 % (37.0-47.0); HEMOGLOBIN 11.3 g/dl (12.0-16.0); LYMPH # 0.7 10*3/uL (1.3-4.4); LYMPH % 7.6 % (27.0-41.0); MEAN CELL VOLUME 73.7 fl (81.0-99.0); MEAN CORPUSCULAR HGB 23.2 pg (27.0-31.0); MEAN CORPUSCULAR HGB CONC 31.5 g/dl (33.0-37.0); MEAN PLATELET VOLUME 10.7 fl (9.6-12.3); MONO # 0.6 10*3/uL (0.1-1.0); MONO % 6.9 % (3.0-9.0); NEUT % 82.2 % (47.0-73.0); PLATELET COUNT AUTOMATED 151 10*3/uL (130-400); RED BLOOD COUNT 4.87 10*6/uL (4.10-5.10); RED CELL DISTRI WIDTH 18.6 % (0-14.5); WHITE BLOOD COUNT 8.5 10*3/uL (4.8-10.8)
[2017-10-15 08:41] LABS: ALBUMIN 2.8 gm/dl (3.1-4.5); ALKALINE PHOSPHATASE 119 U/L (45-117); BUN 10 mg/dl (7-24); CHLORIDE 95 mmol/L (98-107); CREATININE 0.78 mg/dL (0.55-1.02); POTASSIUM 3.7 mmol/L (3.5-5.1); SGOT/AST 32 IU/L (3-35); SGPT/ALT 17 U/L (12-78); SODIUM 132 mmol/L (136-145); TOTAL PROTEIN 7.4 gm/dL (6.4-8.2)
[2017-10-15 08:42] LABS: ETHYL ALCOHOL < 3.0 mg/dl (<3); TROPONIN I < 0.015 ng/ml (<0.045)
[2017-10-15] MEDS ORDERED: AMITIZA24 MCG PO (08:42)
[2017-10-15 08:43] LABS: ACETAMINOPHEN (TYLENOL) < 2.0 ug/ml (10-30)
[2017-10-15] MEDS ORDERED: FLOMAX0.4 MG PO (08:49)
[2017-10-15] MEDS ORDERED: LYRICA150 M1 PO (08:51)
[2017-10-15] MEDS ORDERED: NOVOLOG 70/30 M10 ML SQ (08:53)
[2017-10-15] MEDS ORDERED: PERCOCET 5-3251 EACH PO (08:54)
[2017-10-15 11:20] LABS: BILIRUBIN 1+ (NEGATIVE); BLOOD TRACE-INTACT (NEGATIVE); CLARITY SL CLOUDY (CLEAR); COLOR YELLOW (YELLOW); GLUCOSE NEGATIVE (NEGATIVE); KETONE TRACE (NEGATIVE); LEUKO ESTERASE TRACE (NEGATIVE); NITRITE NEGATIVE (NEGATIVE); UROBILINOGEN 0.2 E.U./dl (0.2-1.0)
[2017-10-15 11:30] LABS: URINE AMPHETAMINES < 1000 (1000ng/ml); URINE BARBITURATES < 200 (200ng/ml); URINE BENZODIAZEPINES < 200 (200ng/ml); URINE CANNABINOIDS (THC) < 50 (50ng/ml); URINE COCAINE < 300 (300ng/ml); URINE METHADONE < 300 (300ng/ml); URINE OPIATES < 300 (300ng/ml)
[2017-10-15 11:35] LABS: URINE PHENCYCLIDINE < 25 (25ng/ml)
[2017-10-15 11:42] LABS: RBC 0-2 rbc/hpf (0-2)
== END 2017-10-15 13:55 | disposition home or self-care (01) ==
LOC: ED 08:02
PROVIDERS: Student in an Organized Health Care Education/Training Program
DX: S00.83XA Contusion of other part of head, initial encounter (principal); K21.9 Gastro-esophageal reflux disease without esophagitis; F32.9 Major depressive disorder, single episode, unspecified; I10 Essential (primary) hypertension; E11.65 Type 2 diabetes mellitus with hyperglycemia; Z85.038 Personal history of other malignant neoplasm of large intestine; Z85.42 Personal history of malignant neoplasm of other parts of uterus; Z90.49 Acquired absence of other specified parts of digestive tract; Z90.710 Acquired absence of both cervix and uterus; Z86.73 Personal history of transient ischemic attack (TIA), and cerebral infarction without residual deficits; Z79.82 Long term (current) use of aspirin; Z79.4 Long term (current) use of insulin; Z79.899 Other long term (current) drug therapy; Y93.89 Activity, other specified; W13.3XXA Fall through floor, initial encounter; Y92.128 Other place in nursing home as the place of occurrence of the external cause; Y99.8 Other external cause status

== ENCOUNTER → 2017-12-02 | Outpatient (CLI) | payer OTHER ==
[~2017-12-02] MED LIST changes: +AMITIZA24 MCG PO; +FLOMAX0.4 MG PO; +NOVOLOG 70/30 M10 ML SQ; +PERCOCET 5-3251 EACH PO
[2017-12-02 10:06] LABS: HEMATOCRIT 30.8 % (37.0-47.0); HEMOGLOBIN 9.3 g/dl (12.0-16.0); MEAN CELL VOLUME 80.2 fl (81.0-99.0); MEAN CORPUSCULAR HGB 24.2 pg (27.0-31.0); MEAN CORPUSCULAR HGB CONC 30.2 g/dl (33.0-37.0); PLATELET COUNT AUTOMATED 107 10*3/uL (130-400); RED BLOOD COUNT 3.84 10*6/uL (4.10-5.10); RED CELL DISTRI WIDTH 18.7 % (0-14.5)
[2017-12-02 10:21] LABS: ALBUMIN 2.8 gm/dl (3.1-4.5); ALKALINE PHOSPHATASE 138 U/L (45-117); BUN 7 mg/dl (7-24); CHLORIDE 111 mmol/L (98-107); CHOLESTEROL 156 mg/dL (<200); CREATININE 0.81 mg/dL (0.55-1.02); HDL CHOLESTEROL 55 mg/dl (40-60); LDL CHOLESTEROL 77 mg/dL (9-159); POTASSIUM 3.8 mmol/L (3.5-5.1); SGOT/AST 19 IU/L (3-35); SGPT/ALT 24 U/L (12-78); SODIUM 144 mmol/L (136-145); TOTAL PROTEIN 6.5 gm/dL (6.4-8.2); TRIGLYCERIDES 118 mg/dl (<150); VLDL CHOLESTEROL 24 mg/dL (6-40)
[2017-12-02 10:27] LABS: VALPROIC ACID (DEPAKENE) < 3.0 ug/ml (50-100)
== END | disposition home or self-care (01) ==
LOC: LAB 09:27
PROVIDERS: Family Medicine
DX: E55.9 Vitamin D deficiency, unspecified (principal); E11.9 Type 2 diabetes mellitus without complications; E78.00 Pure hypercholesterolemia, unspecified; I10 Essential (primary) hypertension

== ENCOUNTER 2018-02-10 17:44 | Inpatient (IN) | payer OTHER ==
[~2018-02-10] VITALS: Ht 162.5 cm; Wt 112.7 kg
--- NOTE | ~2018-02-10 | DS ---
[place], [place] DISCHARGE SUMMARY NAME: JERMAINE AN [facility] #: [id number] UNIT #: [id number] ROOM: 501 DOCTOR: HUGO WOODY MD BIRTHDATE: [birth year] DOS: 02/13/2018 DIAGNOSES: 1. Small-bowel obstruction, possibly from adhesions from previous surgery. 2. History of CA colon with colonoscopy in July 2017, which was negative. 3. History of cerebrovascular accident in 10/2017. 4. History of transient ischemic attacks. 5. Gastrointestinal bleed by history. 6. Type 2 diabetes mellitus, insulin-dependent. 7. Coronary artery disease. 8. Benign hypertension. 9. Chronic back pain. 10. History of uterine CA. MEDICATIONS: Same as in admission, no new prescriptions were given. HOSPITAL COURSE: The patient is 67 years old, comes in with complaints of nausea and emesis. Please refer to H and P for details. After admission, the patient was placed on IV fluids, IV pain medications, Reglan and Zofran. The patient's pain has resolved now she has corrected. NG tube was placed after multiple emesis, which has since been removed. X-rays of the abdomen have shown resolution of the small bowel ileus. At that time, the NG tube was removed and the patient has remained stable. I appreciate both Dr. Riley's and Dr. Teixeira's input. This morning, the patient will be discharged home to follow up with her PCP. No new medicines were given. HUGO WOODY MD CM:DISCHARG 0841 HUGO WOODY MD 02/13/18 0915 interface
--- NOTE | ~2018-02-10 | WRIGHTHP ---
[place], [place] PATIENT HISTORY AND PHYSICAL EXAM NAME: JERMAINE AN [facility] #: [id number] UNIT #: [id number] ROOM: [facility] DOCTOR: HUGO WOODY MD BIRTHDATE: [birth year] DOS: 02/10/2018 HISTORY OF PRESENT ILLNESS: The patient is 67-year-old. The patient is known to us from previous admissions. The patient comes in with complaints of severe abdominal pain of about a day's duration. She is not exactly sure what caused the pain. She did not eat anything unusual. She also was nauseous and so decided to come into the Emergency Room yesterday because of continued pain. The pain was relieved with morphine in the Emergency Room. She denies having any chest pains or palpitations, does not have any fever or chills. CT scan done in the Emergency Room showed ileus. PAST MEDICAL HISTORY: Significant for: 1. Last hospitalization in October 2017 at [facility] [place] with CVA. She underwent physical therapy at [facility] and was released in November and she has been stable since then. 2. History of TIAs. 3. History of GI bleed. 4. Type 2 diabetes mellitus, insulin-dependent. 5. Coronary artery disease. 6. Benign hypertension. 7. Chronic back pain. 8. History of colonoscopy, July 2007, with history of colonic ulcerations and colonic stricture. 9. History of CA colon. 1. History of uterine CA. MEDICATIONS: She is on currently are iron 325 daily, aspirin 81 daily, glipizide 10 b.i.d., labetalol 200 b.i.d., Amitiza 24 mcg daily, metformin 1000 b.i.d., Percocet 5 q. 4 hours, Lyrica 150 b.i.d., valsartan 160 daily, NovoLog 70/30 45 units twice daily, Victoza 1.8 mg subcutaneous, SOCIAL HISTORY: Nonsmoker, does not use any alcohol, lives at home. PHYSICAL EXAMINATION: GENERAL: The patient is awake and alert and oriented. VITAL SIGNS: Graphic trend shows blood pressure 128/57, pulse of 87, respirations 20, temperature 98.8. LUNGS: Clear. HEART: Regular. ABDOMEN: Obese with hyperactive bowel sounds. EXTREMITIES: Without any edema. LABORATORY DATA: Glucose 416, BUN 16, creatinine 1.14, sodium 135, potassium 4.7, chloride 99, bicarbonate 28. Liver enzymes were normal. WBC count is 10.6, hemoglobin 12.8, hematocrit 40.2, platelets 105. ASSESSMENT AND PLAN: 1. The patient with small-bowel obstruction with continued nausea and emesis. The patient will be placed on Reglan IV, Zofran and we will start an NG tube. She has history of colonoscopy in July 2017, did not show any evidence of [place], [place] PATIENT HISTORY AND PHYSICAL EXAM NAME: JERMAINE AN [facility] #: [id number] UNIT #: [id number] ROOM: [facility] DOCTOR: HUGO WOODY MD BIRTHDATE: [birth year] colonic cancer. We ask for opinion from Dr. Teixeira and Dr. Riley. 2. Type 2 diabetes mellitus, insulin-dependent. Blood sugar is in the 400s. Blood sugar is to be checked q.i.d. with coverage. 3. Benign hypertension. Right now, the patient is n.p.o. We will monitor the blood pressures and we will start on Catapres patch if necessary. HUGO WOODY MD CM:HISPHYS:PATIENT HISTORY AND PHYSICAL EXAMINATION 9 8 HUGO WOODY MD 02/11/18 0838 interface
--- NOTE | ~2018-02-10 | PR ---
[place], [place] PROGRESS NOTE NAME: JERMAINE AN [facility] #: [id number] UNIT #: [id number] ROOM: [facility] DOCTOR: HUGO WOODY MD BIRTHDATE: [birth year] DOS: 02/12/2018 SUBJECTIVE: The patient is doing much better after the NG was placed. She does not have any complaints today. OBJECTIVE: VITAL SIGNS: Graphic trend shows a pressure 160/80, pulse of 98, respirations 18, temperature 98.3. LUNGS: Clear. HEART: Regular. ABDOMEN: Obese, soft. Bowel sounds hypoactive this morning. EXTREMITIES: Without any edema. LABORATORY DATA: Urine culture, no bacterial growth. Acute abdominal series this morning shows resolution of the small bowel ileus. ASSESSMENT AND PLAN: 1. Small bowel ileus resolving. Discussed with Dr. Riley. Discontinue NG tube and the patient will be placed on ADA diet. 2. Type 2 diabetes mellitus. Restart medications. 3. Benign hypertension. The patient has not received any antihypertensives for a few days. We will restart medications. HUGO WOODY MD CM:PNTRANS [id number] HUGO WOODY MD 02/12/18 2207 interface
--- NOTE | ~2018-02-10 | PR ---
[place], [place] PROGRESS NOTE NAME: JERMAINE AN [facility] #: [id number] UNIT #: [id number] ROOM: [facility] DOCTOR: HUGO WOODY MD BIRTHDATE: [birth year] DOS: SUBJECTIVE: The patient did do fine after the NG tube was removed and she has not had any new complaints. OBJECTIVE: VITAL SIGNS: Graphic trend shows blood pressure of 136/54, pulse of 79, respirations 18, temperature 98. LUNGS: Clear. HEART: Regular. ABDOMEN: Obese. EXTREMITIES: Without any edema. ASSESSMENT AND PLAN: Small bowel ileus, which has resolved. NG tube was removed and the patient is not having any new problems. The plan is to discharge her to home today. Follow up as an outpatient. HUGO WOODY MD CM:PNTRANS 0838 0935 HUGO WOODY MD 02/13/18 0934 interface
[2018-02-10 17:44] VITALS: BP 126/81
[2018-02-10] MEDS ORDERED: FEOSOL325 MG PO (17:48)
[2018-02-10 18:19] LABS: BILIRUBIN NEGATIVE (NEGATIVE); BLOOD TRACE-LYSED (NEGATIVE); CLARITY CLEAR (CLEAR); COLOR YELLOW (YELLOW); GLUCOSE 3+ (NEGATIVE); KETONE NEGATIVE (NEGATIVE); LEUKO ESTERASE NEGATIVE (NEGATIVE); NITRITE NEGATIVE (NEGATIVE); UROBILINOGEN 0.2 E.U./dl (0.2-1.0)
[2018-02-10 18:26] LABS: BACTERIA 2+
[2018-02-10 18:32] LABS: BASO % 0.2 % (0.0-1.0); EOS # 0.1 10*3/uL (0.0-0.4); HEMATOCRIT 40.3 % (37.0-47.0); HEMOGLOBIN 13.1 g/dl (12.0-16.0); LYMPH # 0.8 10*3/uL (1.3-4.4); LYMPH % 7.7 % (27.0-41.0); MEAN CELL VOLUME 81.7 fl (81.0-99.0); MEAN CORPUSCULAR HGB 26.6 pg (27.0-31.0); MEAN CORPUSCULAR HGB CONC 32.5 g/dl (33.0-37.0); MEAN PLATELET VOLUME 10.1 fl (9.6-12.3); MONO # 0.6 10*3/uL (0.1-1.0); MONO % 5.8 % (3.0-9.0); NEUT # 9.1 10*3/uL (2.3-7.9); NEUT % 84.7 % (47.0-73.0); PLATELET COUNT AUTOMATED 94 10*3/uL (130-400); RED BLOOD COUNT 4.93 10*6/uL (4.10-5.10); RED CELL DISTRI WIDTH 19.5 % (0-14.5); WHITE BLOOD COUNT 10.7 10*3/uL (4.8-10.8)
[2018-02-10 18:50] LABS: ALBUMIN 3.3 gm/dl (3.1-4.5); ALKALINE PHOSPHATASE 153 U/L (45-117); BUN 13 mg/dl (7-24); CHLORIDE 100 mmol/L (98-107); CREATININE 1.08 mg/dL (0.55-1.02); LIPASE 194 U/L (73-393); POTASSIUM 4.6 mmol/L (3.5-5.1); SGOT/AST 17 IU/L (3-35); SGPT/ALT 24 U/L (12-78); SODIUM 135 mmol/L (136-145)
[2018-02-10 19:51] VITALS: BP 135/78
[2018-02-10 21:02] VITALS: BP 171/76
[2018-02-10 22:44] VITALS: BP 142/44
[2018-02-11] VITALS: BP 142/44
[2018-02-11 07:32] LABS: BASO % 0.2 % (0.0-1.0); EOS # 0.2 10*3/uL (0.0-0.4); EOS % 1.4 % (1.0-4.0); HEMATOCRIT 40.2 % (37.0-47.0); HEMOGLOBIN 12.8 g/dl (12.0-16.0); LYMPH # 0.6 10*3/uL (1.3-4.4); LYMPH % 6.1 % (27.0-41.0); MEAN CELL VOLUME 82.4 fl (81.0-99.0); MEAN CORPUSCULAR HGB 26.2 pg (27.0-31.0); MEAN CORPUSCULAR HGB CONC 31.8 g/dl (33.0-37.0); MEAN PLATELET VOLUME 11.2 fl (9.6-12.3); MONO # 0.8 10*3/uL (0.1-1.0); MONO % 7.6 % (3.0-9.0); NEUT # 8.9 10*3/uL (2.3-7.9); NEUT % 84.4 % (47.0-73.0); PLATELET COUNT AUTOMATED 105 10*3/uL (130-400); RED BLOOD COUNT 4.88 10*6/uL (4.10-5.10); RED CELL DISTRI WIDTH 20.1 % (0-14.5); WHITE BLOOD COUNT 10.6 10*3/uL (4.8-10.8)
[2018-02-11 07:53] LABS: ACT PARTIAL THROMBO TIME 23.8 SECONDS (20.8-31.5)
[2018-02-11 07:56] LABS: ALBUMIN 3.3 gm/dl (3.1-4.5); CREATININE 1.14 mg/dL (0.55-1.02); POTASSIUM 4.7 mmol/L (3.5-5.1); TOTAL PROTEIN 7.1 gm/dL (6.4-8.2)
[2018-02-11 08:00] VITALS: BP 128/57
[2018-02-11 12:00] VITALS: BP 143/78
[2018-02-11 16:00] VITALS: BP 145/57
[2018-02-11 20:00] VITALS: BP 145/50
[2018-02-12] VITALS (7 sets, daily range): BP systolic 123–186; BP diastolic 60–86
[2018-02-12 06:59] LABS: BASO % 0.3 % (0.0-1.0); EOS # 0.2 10*3/uL (0.0-0.4); EOS % 2.2 % (1.0-4.0); HEMATOCRIT 36.9 % (37.0-47.0); HEMOGLOBIN 11.7 g/dl (12.0-16.0); LYMPH % 13.8 % (27.0-41.0); MEAN CELL VOLUME 83.3 fl (81.0-99.0); MEAN CORPUSCULAR HGB 26.4 pg (27.0-31.0); MEAN CORPUSCULAR HGB CONC 31.7 g/dl (33.0-37.0); MEAN PLATELET VOLUME 11.4 fl (9.6-12.3); MONO # 0.5 10*3/uL (0.1-1.0); MONO % 6.6 % (3.0-9.0); NEUT # 5.5 10*3/uL (2.3-7.9); NEUT % 76.5 % (47.0-73.0); PLATELET COUNT AUTOMATED 93 10*3/uL (130-400); RED BLOOD COUNT 4.43 10*6/uL (4.10-5.10); RED CELL DISTRI WIDTH 19.9 % (0-14.5); WHITE BLOOD COUNT 7.1 10*3/uL (4.8-10.8)
[2018-02-12 07:25] LABS: BUN 12 mg/dl (7-24); CHLORIDE 105 mmol/L (98-107); CREATININE 0.79 mg/dL (0.55-1.02); POTASSIUM 3.9 mmol/L (3.5-5.1); SODIUM 138 mmol/L (136-145)
[2018-02-13] VITALS: BP 136/54
[2018-02-13 08:00] VITALS: BP 139/50
== END 2018-02-13 09:50 | disposition home or self-care (01) | DRG 389 ==
LOC: ED 17:44 → 5E 22:00 → EDHOLD 22:00 → 5E 22:28
PROVIDERS: Internal Medicine; Nurse Practitioner Family; Surgery
PROC: 0D9670Z Drainage of Stomach with Drainage Device, Via Natural or Artificial Opening (ICD-10-PCS; principal; 2018-02-11)
DX: K56.51 Intestinal adhesions [bands], with partial obstruction (principal); Z68.41 Body mass index [BMI] 40.0-44.9, adult; D69.6 Thrombocytopenia, unspecified; E11.65 Type 2 diabetes mellitus with hyperglycemia; E66.01 Morbid (severe) obesity due to excess calories; R16.1 Splenomegaly, not elsewhere classified; D64.9 Anemia, unspecified; D72.9 Disorder of white blood cells, unspecified; F32.9 Major depressive disorder, single episode, unspecified; G89.29 Other chronic pain; I10 Essential (primary) hypertension; I25.10 Atherosclerotic heart disease of native coronary artery without angina pectoris; M54.9 Dorsalgia, unspecified; K57.90 Diverticulosis of intestine, part unspecified, without perforation or abscess without bleeding; K21.9 Gastro-esophageal reflux disease without esophagitis; R00.0 Tachycardia, unspecified; R74.8 Abnormal levels of other serum enzymes; R81 Glycosuria; W19.XXXS Unspecified fall, sequela; Z85.038 Personal history of other malignant neoplasm of large intestine; Z86.73 Personal history of transient ischemic attack (TIA), and cerebral infarction without residual deficits; Z79.4 Long term (current) use of insulin; Z85.54 Personal history of malignant neoplasm of ureter; Z90.49 Acquired absence of other specified parts of digestive tract; Z79.899 Other long term (current) drug therapy; Z91.81 History of falling; Z87.440 Personal history of urinary (tract) infections; Z90.710 Acquired absence of both cervix and uterus; Z87.891 Personal history of nicotine dependence; Z82.49 Family history of ischemic heart disease and other diseases of the circulatory system; Z83.3 Family history of diabetes mellitus; Z79.82 Long term (current) use of aspirin; Z79.84 Long term (current) use of oral hypoglycemic drugs

== ENCOUNTER → 2018-08-04 | Outpatient (CLI) | payer OTHER ==
[~2018-08-04] MED LIST changes: +FEOSOL325 MG PO
[2018-08-04 12:04] LABS: HEMATOCRIT 41.6 % (37.0-47.0); HEMOGLOBIN 13.4 g/dl (12.0-16.0); MEAN CELL VOLUME 90.4 fl (81.0-99.0); MEAN CORPUSCULAR HGB 29.1 pg (27.0-31.0); MEAN CORPUSCULAR HGB CONC 32.2 g/dl (33.0-37.0); MEAN PLATELET VOLUME 11.2 fl (9.6-12.3); RED BLOOD COUNT 4.6 10*6/uL (4.10-5.10); RED CELL DISTRI WIDTH 15.6 % (0-14.5); WHITE BLOOD COUNT 6.3 10*3/uL (4.8-10.8)
[2018-08-04 12:28] LABS: ALBUMIN 3.3 gm/dl (3.1-4.5); ALKALINE PHOSPHATASE 112 U/L (45-117); BUN 10 mg/dl (7-24); CHLORIDE 104 mmol/L (98-107); CHOLESTEROL 187 mg/dL (<200); CREATININE 1.03 mg/dL (0.55-1.02); HDL CHOLESTEROL 42 mg/dl (40-60); LDL CHOLESTEROL 108 mg/dL (9-159); POTASSIUM 4.7 mmol/L (3.5-5.1); SGOT/AST 20 IU/L (3-35); SGPT/ALT 24 U/L (12-78); SODIUM 137 mmol/L (136-145); TRIGLYCERIDES 183 mg/dl (<150); VLDL CHOLESTEROL 37 mg/dL (6-40)
== END | disposition home or self-care (01) ==
LOC: LAB 11:30
PROVIDERS: Family Medicine
DX: E55.9 Vitamin D deficiency, unspecified (principal); E11.9 Type 2 diabetes mellitus without complications; E78.00 Pure hypercholesterolemia, unspecified; I10 Essential (primary) hypertension

== ENCOUNTER 2018-11-25 10:09 | Inpatient (IN) | payer OTHER ==
[~2018-11-25] VITALS: Ht 162.6 cm; Wt 73.6 kg
--- NOTE | ~2018-11-25 | EKG ---
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
--- NOTE | ~2018-11-25 | WRIGHTHP ---
[place], [place] PATIENT HISTORY AND PHYSICAL EXAM NAME: JERMAINE AN [facility] #: [id number] UNIT #: [id number] ROOM: 415 DOCTOR: SUNITA VARELA MD BIRTHDATE: [birth year] DOS: 11/25/2018 HISTORY OF PRESENT ILLNESS: The patient is a 68-year-old female with a past medical history of: 1. Cancer of the colon in the past. 2. Morbid obesity. 3. History of GI bleed. 4. Type 2 diabetes mellitus, insulin requiring. 5. Coronary artery disease of [place] vessels. 6. Benign essential hypertension. 7. Chronic back pains. 8. History of uterine cancer. The patient presented to the Emergency Department with itching and burning sensation in her urine and feeling unwell. The patient noticed her blood pressure was high today and her blood sugar was elevated to 344. She also had dry heaves and diarrhea for 2 days. She was nauseous and had an elevated blood pressure. The patient was feeling weak with body aches. The patient was recommended for admission for urine infection and dehydration with elevation of creatinine. After admission, the patient says she has some difficulty with walking and is generally weak. SYSTEMS REVIEW: RESPIRATORY: Some increasing shortness of breath this morning. GASTROINTESTINAL: The patient is nauseous and having dry heaves. CARDIOVASCULAR SYSTEM: No chest pains or palpitations. HOME MEDICATIONS: The patient takes insulin, omeprazole, aspirin, metformin, glipizide, Lyrica, labetalol, iron at home. PHYSICAL EXAMINATION: GENERAL: Alert, oriented x 3, in no visible distress, generalized weakness, morbid obesity. HEENT AND NECK: Extraocular movements are intact. Sclerae are anicteric. Oral mucosa is moist and clean. No obvious facial weakness. Neck is supple without any lymphadenopathy. No thyromegaly. No JVD. No carotid arterial bruits. LUNGS: Clear to auscultation. No wheezing. No rhonchi. CARDIOVASCULAR SYSTEM: Heart rate is regular in rate and rhythm. S1 and S2 normally audible. No significant murmur or any other abnormal cardiac sounds. ABDOMEN: Soft, nontender. No obvious organomegaly. Bowel sounds are present. No obvious herniation. EXTREMITIES: Without significant cyanosis or edema. Warm to touch. CENTRAL NERVOUS SYSTEM: Alert and oriented x 3. Cranial nerves II-XII are intact. Speech is normal. The patient is able to move all extremities. Normal muscle strength. Deep tendon reflexes are equal on both sides. Plantars were downgoing. LABORATORY DATA: Creatinine elevated to 1.2. Blood sugar 317. Lactic acid level of 3.9, has come down to 1.9 with hydration. IMPRESSION AND PLAN: [place], [place] PATIENT HISTORY AND PHYSICAL EXAM NAME: JERMAINE AN UNIT #: [id number] ROOM: [facility] DOCTOR: SUNITA VARELA MD BIRTHDATE: [birth year] 1. The patient presenting with urinary tract infection and also apparently vaginal yeast infection is going to be treated with IV Rocephin and Diflucan. Urine cultures have been sent. 2. Dehydration from urinary infection, nausea and dry heaves to be treated with hydration and normal saline. 3. Lactic acid level elevation of 3.9, has resolved with hydration with IV fluids. 4. Type 2 diabetes mellitus with elevated blood sugars in 300. Blood sugars to be monitored and treated accordingly. The patient to be kept on a no concentrated sweet diet. 5. Coronary artery disease of [place] vessels without chest pain. 6. Benign essential hypertension. Blood pressures were elevated, blood pressures now to be monitored and treated and controlled. 7. Morbid obesity with BMI of 43.6. The patient to work with dietary. 8. Generalized weakness and adult failure to thrive. The patient started on physical therapy and we are taking bedsore precautions using air mattress and every 2 hour turning. SUNITA VARELA MD CM:HISPHYS:PATIENT HISTORY AND PHYSICAL EXAMINATION 50 55 SUNITA VARELA MD 11/25/181755 interface
--- NOTE | ~2018-11-25 | DS ---
[place], [place] DISCHARGE SUMMARY NAME: JERMAINE AN [facility] #: [id number] UNIT #: [id number] ROOM: 415 DOCTOR: SUNITA VARELA MD BIRTHDATE: [birth year] DOS: 11/26/2018 DISCHARGE DIAGNOSES: 1. Urinary tract infection. Urine culture is contaminated. 2. Uncontrolled type 2 diabetes mellitus, poor compliance with diet. 3. History of cancer of the colon in the past. 4. Morbid obesity. 5. History of gastrointestinal bleed. 6. Coronary artery disease of the [place] vessels. 7. Benign essential hypertension. 8. Chronic back pain. 9. History of uterine cancer. HOSPITAL COURSE: The patient presented with itching and burning sensation in her urine and feeling sick and her blood sugars were elevated to 344. The patient was having dry heaves and diarrhea for 2 days. The patient was treated with Diflucan and IV Rocephin. She is feeling better and ready to be discharged to home. Nausea, diaphoresis, dehydration -- treated with hydration with normal saline and nausea and dry heaves have resolved. She is starting to feel better and good enough to go home. Elevated lactic acid level of 3.9, resolved with hydration with normal saline. Uncontrolled type 2 diabetes mellitus secondary to noncompliance and poor diet. Coronary artery disease of [place] vessels without chest pain. Benign essential hypertension, treated and controlled. Blood pressures are staying normal. Adult failure to thrive. The patient was started on physical therapy, which she can continue at home. DISCHARGE MANAGEMENT: Aspirin 81 mg a day, Tylenol p.r.n., NPH insulin 60 units b.i.d. subcutaneous, omeprazole 20 mg a day, metformin 1000 mg b.i.d., glipizide 10 mg b.i.d., labetalol 200 mg b.i.d., Augmentin 875 mg twice a day for a week, pregabalin 150 mg b.i.d. Follow up with Dr. Kraig Lees this week, her PCP. [place], [place] DISCHARGE SUMMARY NAME: JERMAINE NA UNIT #: [id number] ROOM: 415 DOCTOR: SUNITA VARELA MD BIRTHDATE: [birth year] SUNITA VARELA MD CM:ARJUN 1713 SUNITA VARELA MD 11/27/187 interface
[2018-11-25 10:12] VITALS: BP 158/80
[2018-11-25 11:08] LABS: BASO % 0.5 % (0.0-1.0); EOS # 0.2 10*3/uL (0.0-0.4); EOS % 2.6 % (1.0-4.0); HEMATOCRIT 43.3 % (37.0-47.0); HEMOGLOBIN 14.2 g/dl (12.0-16.0); LYMPH # 0.9 10*3/uL (1.3-4.4); LYMPH % 15.7 % (27.0-41.0); MEAN CELL VOLUME 90.2 fl (81.0-99.0); MEAN CORPUSCULAR HGB 29.6 pg (27.0-31.0); MEAN CORPUSCULAR HGB CONC 32.8 g/dl (33.0-37.0); MEAN PLATELET VOLUME 11.8 fl (9.6-12.3); MONO # 0.4 10*3/uL (0.1-1.0); MONO % 6.2 % (3.0-9.0); NEUT # 4.4 10*3/uL (2.3-7.9); NEUT % 74.3 % (47.0-73.0); PLATELET COUNT AUTOMATED 102 10*3/uL (130-400); RED CELL DISTRI WIDTH 15.6 % (0-14.5); WHITE BLOOD COUNT 5.9 10*3/uL (4.8-10.8)
[2018-11-25 11:21] LABS: ACT PARTIAL THROMBO TIME 22.7 SECONDS (20.8-31.5)
[2018-11-25 11:34] LABS: ALBUMIN 3.3 gm/dl (3.1-4.5); ALKALINE PHOSPHATASE 127 U/L (45-117); BUN 12 mg/dl (7-24); CHLORIDE 105 mmol/L (98-107); LIPASE 172 U/L (73-393); POTASSIUM 4.7 mmol/L (3.5-5.1); SGOT/AST 20 IU/L (3-35); SGPT/ALT 27 U/L (12-78); SODIUM 139 mmol/L (136-145); TOTAL PROTEIN 7.4 gm/dL (6.4-8.2)
[2018-11-25 11:35] LABS: TROPONIN I < 0.015 ng/ml (<0.045)
[2018-11-25 12:21] LABS: BILIRUBIN NEGATIVE (NEGATIVE); BLOOD 1+ (NEGATIVE); CLARITY CLOUDY (CLEAR); COLOR YELLOW (YELLOW); GLUCOSE 3+ (NEGATIVE); KETONE TRACE (NEGATIVE); LEUKO ESTERASE 1+ (NEGATIVE); NITRITE NEGATIVE (NEGATIVE); PH 5.5 (5.0-9.0); UROBILINOGEN 0.2 E.U./dl (0.2-1.0)
[2018-11-25 12:35] LABS: BACTERIA 4+; WBC TNTC wbc/hpf (0-5)
[2018-11-25 13:19] VITALS: BP 139/70
[2018-11-25 14:00] VITALS: BP 154/72
[2018-11-25] MEDS ORDERED: VIT D PO (15:10)
[2018-11-25] MEDS ORDERED: OMEPRAZOLE MAGN20 MG PO (15:10)
[2018-11-25] MEDS ORDERED: VIT E PO (15:10)
[2018-11-25 16:00] VITALS: BP 158/77
[2018-11-25 20:00] VITALS: BP 153/41
[2018-11-26] VITALS: BP 146/47
[2018-11-26 06:08] LABS: BASO % 0.5 % (0.0-1.0); EOS # 0.1 10*3/uL (0.0-0.4); EOS % 3.2 % (1.0-4.0); HEMATOCRIT 41.2 % (37.0-47.0); HEMOGLOBIN 13.1 g/dl (12.0-16.0); LYMPH % 23.9 % (27.0-41.0); MEAN CELL VOLUME 90.2 fl (81.0-99.0); MEAN CORPUSCULAR HGB 28.7 pg (27.0-31.0); MEAN CORPUSCULAR HGB CONC 31.8 g/dl (33.0-37.0); MEAN PLATELET VOLUME 12.3 fl (9.6-12.3); MONO # 0.4 10*3/uL (0.1-1.0); MONO % 8.5 % (3.0-9.0); NEUT # 2.8 10*3/uL (2.3-7.9); NEUT % 63.2 % (47.0-73.0); PLATELET COUNT AUTOMATED 83 10*3/uL (130-400); RED BLOOD COUNT 4.57 10*6/uL (4.10-5.10); RED CELL DISTRI WIDTH 15.5 % (0-14.5); WHITE BLOOD COUNT 4.4 10*3/uL (4.8-10.8)
[2018-11-26 06:17] LABS: BUN 12 mg/dl (7-24); CHLORIDE 106 mmol/L (98-107); POTASSIUM 3.9 mmol/L (3.5-5.1); SODIUM 141 mmol/L (136-145)
[2018-11-26 08:00] VITALS: BP 148/76
[2018-11-26 12:00] VITALS: BP 144/80
[2018-11-26 15:59] VITALS: BP 152/61
[2018-11-26] MEDS ORDERED: AUGMENTIN 875-875 MG PO (17:06)
== END 2018-11-26 18:14 | disposition home or self-care (01) | DRG 690 ==
LOC: ED 10:09 → EDHOLD 12:56 → 4E 12:56
PROVIDERS: Emergency Medicine; ADMIT Internal Medicine
DX: N39.0 Urinary tract infection, site not specified (principal); E86.0 Dehydration; N18.1 Chronic kidney disease, stage 1; F32.9 Major depressive disorder, single episode, unspecified; K21.9 Gastro-esophageal reflux disease without esophagitis; I25.10 Atherosclerotic heart disease of native coronary artery without angina pectoris; E66.01 Morbid (severe) obesity due to excess calories; G89.29 Other chronic pain; M54.9 Dorsalgia, unspecified; R62.7 Adult failure to thrive; I10 Essential (primary) hypertension; E11.9 Type 2 diabetes mellitus without complications; Z86.73 Personal history of transient ischemic attack (TIA), and cerebral infarction without residual deficits; Z91.81 History of falling; Z85.038 Personal history of other malignant neoplasm of large intestine; Z85.42 Personal history of malignant neoplasm of other parts of uterus; Z87.440 Personal history of urinary (tract) infections; Z90.49 Acquired absence of other specified parts of digestive tract; Z90.710 Acquired absence of both cervix and uterus; Z87.891 Personal history of nicotine dependence; Z82.49 Family history of ischemic heart disease and other diseases of the circulatory system; Z83.3 Family history of diabetes mellitus; Z68.27 Body mass index [BMI] 27.0-27.9, adult

== ENCOUNTER → 2019-05-02 | Outpatient (CLI) | payer OTHER ==
[~2019-05-02] MED LIST changes: +AUGMENTIN 875-875 MG PO; +OMEPRAZOLE MAGN20 MG PO; +VIT D PO; +VIT E PO
== END | disposition home or self-care (01) ==
LOC: RESCLI 01:19
DX: E11.9 Type 2 diabetes mellitus without complications (principal); I10 Essential (primary) hypertension; K21.9 Gastro-esophageal reflux disease without esophagitis; M12.9 Arthropathy, unspecified; E78.5 Hyperlipidemia, unspecified; R26.2 Difficulty in walking, not elsewhere classified; M50.10 Cervical disc disorder with radiculopathy, unspecified cervical region; F32.9 Major depressive disorder, single episode, unspecified; D50.8 Other iron deficiency anemias; Z79.899 Other long term (current) drug therapy; Z88.8 Allergy status to other drugs, medicaments and biological substances

== ENCOUNTER → 2019-06-17 | Outpatient (CLI) | payer OTHER | END | disposition home or self-care (01) | LOC: MRI 10:23 | DX: M48.062 Spinal stenosis, lumbar region with neurogenic claudication (principal); M62.81 Muscle weakness (generalized); E11.9 Type 2 diabetes mellitus without complications; I10 Essential (primary) hypertension ==

== ENCOUNTER → 2019-07-01 | Outpatient (CLI) | payer OTHER | END | disposition home or self-care (01) | LOC: US 12:14 | DX: I73.9 Peripheral vascular disease, unspecified (principal); I10 Essential (primary) hypertension; E11.9 Type 2 diabetes mellitus without complications ==

== ENCOUNTER → 2019-07-09 | Outpatient (CLI) | payer OTHER | END | disposition home or self-care (01) | LOC: RESCLI 01:51 | DX: I10 Essential (primary) hypertension (principal); E11.9 Type 2 diabetes mellitus without complications; M12.9 Arthropathy, unspecified; D50.8 Other iron deficiency anemias; E78.5 Hyperlipidemia, unspecified; Z79.899 Other long term (current) drug therapy ==

== ENCOUNTER → 2019-10-29 | Outpatient (CLI) | payer OTHER ==
[2019-10-29 12:04] LABS: HEMATOCRIT 39.1 % (37.0-47.0); HEMOGLOBIN 12.4 g/dl (12.0-16.0); MEAN CELL VOLUME 93.1 fl (81.0-99.0); MEAN CORPUSCULAR HGB 29.5 pg (27.0-31.0); MEAN CORPUSCULAR HGB CONC 31.7 g/dl (33.0-37.0); NUCLEATED RED BLOOD CELL 0.4 % (0.0-0.0); PLATELET COUNT AUTOMATED 66 10*3/uL (130-400); RED CELL DISTRI WIDTH 18.6 % (0-14.5); WHITE BLOOD COUNT 5.4 10*3/uL (4.8-10.8)
[2019-10-29 12:29] LABS: ALBUMIN 3.5 gm/dl (3.1-4.5)
[2019-10-29 12:34] LABS: CREATININE 1.37 mg/dL (0.55-1.02); TOTAL PROTEIN 7.3 gm/dL (6.4-8.2)
[2019-10-29 13:04] LABS: VITAMIN D, 25-HYDROXY 8.7 ng/mL (30-100)
== END | disposition home or self-care (01) ==
LOC: LAB 11:31
PROVIDERS: Nurse Practitioner Family
DX: E11.9 Type 2 diabetes mellitus without complications (principal); D64.9 Anemia, unspecified; E55.9 Vitamin D deficiency, unspecified; E66.9 Obesity, unspecified; M19.90 Unspecified osteoarthritis, unspecified site

== ENCOUNTER → 2019-11-26 | Outpatient (CLI) | payer OTHER | END | disposition home or self-care (01) | LOC: RESCLI 00:39 | DX: I10 Essential (primary) hypertension (principal); E11.9 Type 2 diabetes mellitus without complications; K21.9 Gastro-esophageal reflux disease without esophagitis; M12.9 Arthropathy, unspecified; E78.5 Hyperlipidemia, unspecified; M50.10 Cervical disc disorder with radiculopathy, unspecified cervical region; F32.9 Major depressive disorder, single episode, unspecified; D50.8 Other iron deficiency anemias; R26.2 Difficulty in walking, not elsewhere classified; Z79.899 Other long term (current) drug therapy; Z90.710 Acquired absence of both cervix and uterus; Z90.49 Acquired absence of other specified parts of digestive tract; Z87.891 Personal history of nicotine dependence ==

== ENCOUNTER → 2020-03-18 | Outpatient (CLI) | payer OTHER ==
[2020-03-18 11:00] LABS: HEMATOCRIT 35.3 % (37.0-47.0); MEAN CELL VOLUME 81.5 fl (81.0-99.0); MEAN CORPUSCULAR HGB 24.2 pg (27.0-31.0); MEAN CORPUSCULAR HGB CONC 29.7 g/dl (33.0-37.0); NUCLEATED RED BLOOD CELL 0.1 10*3/uL (0.0-0.0); NUCLEATED RED BLOOD CELL 1.2 % (0.0-0.0); PLATELET COUNT AUTOMATED 71 10*3/uL (130-400); RED BLOOD COUNT 4.33 10*6/uL (4.10-5.10); RED CELL DISTRI WIDTH 22.7 % (0-14.5); WHITE BLOOD COUNT 5.8 10*3/uL (4.8-10.8)
[2020-03-18 11:24] LABS: ALBUMIN 3.3 gm/dl (3.1-4.5); CREATININE 1.35 mg/dL (0.55-1.02); POTASSIUM 4.6 mmol/L (3.5-5.1); TOTAL PROTEIN 7.3 gm/dL (6.4-8.2)
[2020-03-18 11:31] LABS: BASOPHILS 1 % (0-1); TOTAL CELLS COUNTED 100 #CELLS
[2020-03-18 11:32] LABS: PLATELET SUFFICIENCY LOW (NORMAL); TARGET CELLS FEW
[2020-03-18 11:33] LABS: OVALOCYTES FEW; POLYCHROMASIA SLIGHT
[2020-03-18 11:35] LABS: BLASTS 3 % (0-0)
== END | disposition home or self-care (01) ==
LOC: LAB 09:47
PROVIDERS: Family Medicine; Internal Medicine Hematology & Oncology
DX: E55.9 Vitamin D deficiency, unspecified (principal); E78.00 Pure hypercholesterolemia, unspecified; D69.59 Other secondary thrombocytopenia; D51.9 Vitamin B12 deficiency anemia, unspecified; E11.9 Type 2 diabetes mellitus without complications; B37.3 Candidiasis of vulva and vagina; K74.60 Unspecified cirrhosis of liver

== ENCOUNTER 2020-03-24 18:53 | Emergency (ER) | payer OTHER ==
[~2020-03-24] VITALS: Ht 162.5 cm; Wt 117.9 kg
[2020-03-24 20:20] LABS: HEMATOCRIT 31.7 % (37.0-47.0); MEAN CELL VOLUME 79.1 fl (81.0-99.0); MEAN CORPUSCULAR HGB 24.2 pg (27.0-31.0); MEAN CORPUSCULAR HGB CONC 30.6 g/dl (33.0-37.0); NUCLEATED RED BLOOD CELL 0.1 10*3/uL (0.0-0.0); NUCLEATED RED BLOOD CELL 0.8 % (0.0-0.0); PLATELET COUNT AUTOMATED 98 10*3/uL (130-400); RED BLOOD COUNT 4.01 10*6/uL (4.10-5.10); RED CELL DISTRI WIDTH 23.8 % (0-14.5); WHITE BLOOD COUNT 6.4 10*3/uL (4.8-10.8)
[2020-03-24 20:33] LABS: ALBUMIN 3.3 gm/dl (3.1-4.5); CREATININE 1.43 mg/dL (0.55-1.02); POTASSIUM 4.9 mmol/L (3.5-5.1); TOTAL PROTEIN 7.1 gm/dL (6.4-8.2)
[2020-03-24 20:47] LABS: TOTAL CELLS COUNTED 100 #CELLS
[2020-03-24 20:48] LABS: MICROCYTOSIS SLIGHT; OVALOCYTES FEW; PLATELET SUFFICIENCY LOW (NORMAL)
[2020-03-24 21:31] LABS: BACTERIA TRACE; BILIRUBIN NEGATIVE (NEGATIVE); BLOOD NEGATIVE (NEGATIVE); CLARITY CLEAR (CLEAR); COLOR YELLOW (YELLOW); GLUCOSE 3+ (NEGATIVE); KETONE NEGATIVE (NEGATIVE); LEUKO ESTERASE NEGATIVE (NEGATIVE); NITRITE NEGATIVE (NEGATIVE); PH 6.5 (5.0-9.0); SPECIFIC GRAVITY 1.005 (1.005-1.030); UROBILINOGEN 0.2 E.U./dl (0.2-1.0); WBC 0-2 wbc/hpf (0-5)
[2020-03-25 10:34] LABS: BLASTS 3 % (0-0)
== END 2020-03-24 23:32 | disposition home or self-care (01) ==
LOC: ED 18:53
PROVIDERS: Emergency Medicine
DX: E11.65 Type 2 diabetes mellitus with hyperglycemia (principal); R33.9 Retention of urine, unspecified; I10 Essential (primary) hypertension; K21.9 Gastro-esophageal reflux disease without esophagitis; E11.9 Type 2 diabetes mellitus without complications; Z79.899 Other long term (current) drug therapy; Z79.4 Long term (current) use of insulin; Z90.49 Acquired absence of other specified parts of digestive tract; Z90.710 Acquired absence of both cervix and uterus; Z86.73 Personal history of transient ischemic attack (TIA), and cerebral infarction without residual deficits

== ENCOUNTER 2020-04-17 06:16 | Emergency (ER) | payer OTHER ==
[~2020-04-17] VITALS: Ht 162.5 cm; Wt 113.4 kg
== END 2020-04-17 09:00 | disposition home or self-care (01) ==
LOC: ED 06:16
DX: S00.93XA Contusion of unspecified part of head, initial encounter (principal); I10 Essential (primary) hypertension; E11.9 Type 2 diabetes mellitus without complications; K21.9 Gastro-esophageal reflux disease without esophagitis; Z86.73 Personal history of transient ischemic attack (TIA), and cerebral infarction without residual deficits; Z79.899 Other long term (current) drug therapy; Z79.84 Long term (current) use of oral hypoglycemic drugs; Z79.4 Long term (current) use of insulin; Z87.891 Personal history of nicotine dependence; X58.XXXA Exposure to other specified factors, initial encounter; Y93.89 Activity, other specified; Y92.89 Other specified places as the place of occurrence of the external cause; Y99.8 Other external cause status

== ENCOUNTER → 2020-04-22 | Outpatient (CLI) | payer OTHER | END | disposition home or self-care (01) | LOC: MRI 13:00 | DX: R90.82 White matter disease, unspecified (principal) ==

== ENCOUNTER 2020-05-08 09:52 | Observation (INO) | payer OTHER ==
[2020-05-08] VITALS (12 sets, daily range): BP systolic 68–144; BP diastolic 31–63
[~2020-05-08] VITALS: Ht 162.6 cm; Wt 115.3 kg
--- NOTE | 2020-05-08 10:40 | NUR ---
PT PLACED IN [place] FOR DECREASED BLOOD PRESSURE.
[2020-05-08 10:41] LABS: HEMATOCRIT 34.8 % (37.0-47.0); MEAN CELL VOLUME 72.8 fl (81.0-99.0); MEAN CORPUSCULAR HGB 20.9 pg (27.0-31.0); MEAN CORPUSCULAR HGB CONC 28.7 g/dl (33.0-37.0); NUCLEATED RED BLOOD CELL 0.5 % (0.0-0.0); PLATELET COUNT AUTOMATED 202 10*3/uL (130-400); RED BLOOD COUNT 4.78 10*6/uL (4.10-5.10); RED CELL DISTRI WIDTH 24.1 % (0-14.5); WHITE BLOOD COUNT 8.6 10*3/uL (4.8-10.8)
[2020-05-08 10:49] LABS: INTERNATIONAL NORM RATIO 1.1 (2.0-3.5)
[2020-05-08 10:55] LABS: ALKALINE PHOSPHATASE 89 U/L (45-117); BUN 14 mg/dl (7-24); CHLORIDE 101 mmol/L (98-107); CREATININE 1.21 mg/dL (0.55-1.02); POTASSIUM 3.6 mmol/L (3.5-5.1); SGOT/AST 27 IU/L (3-35); SGPT/ALT 26 U/L (12-78); SODIUM 137 mmol/L (136-145); TOTAL PROTEIN 7.2 gm/dL (6.4-8.2)
[2020-05-08 11:07] LABS: TROPONIN I < 0.015 ng/ml (<0.045)
[2020-05-08 11:08] LABS: BASOPHILS 1 % (0-1); TOTAL CELLS COUNTED 100 #CELLS
[2020-05-08 11:09] LABS: BLASTS 4 % (0-0)
[2020-05-08 11:10] LABS: MICROCYTOSIS SLIGHT; PLATELET SUFFICIENCY NORMAL (NORMAL)
--- NOTE | 2020-05-08 11:31 | NUR ---
PT RESTING IN BED WITH EYES CLOSED, REMAINS IN [place] POSITION.
--- NOTE | 2020-05-08 13:02 | NUR ---
PT ASSISTED TO BS FOR URINE SAMPLE PT DENIES ANY DIZZINESS AT THIS TIME.
[2020-05-08 13:46] LABS: BILIRUBIN 2+ (NEGATIVE); BLOOD NEGATIVE (NEGATIVE); CLARITY SL CLOUDY (CLEAR); COLOR YELLOW (YELLOW); GLUCOSE NEGATIVE (NEGATIVE); KETONE NEGATIVE (NEGATIVE); LEUKO ESTERASE 2+ (NEGATIVE); NITRITE NEGATIVE (NEGATIVE)
[2020-05-08 13:59] LABS: BACTERIA 2+; EPITHELIAL CELLS 21-30; WBC 31-40 wbc/hpf (0-5)
--- NOTE | 2020-05-08 15:23 | NUR ---
A 70, admitted to , under the services of Dr. NICHOLE RICK,SUNITA Archuleta with a diagnosis of UTI, SEPSIS, DEHYDRATION. Chief complaint is VERTIGO. Patient arrived via bed from ER. Monitor applied. Initial assessment completed. Vital signs taken and recorded. DR. NICHOLE RICK,SUNITA Archuleta notified of admission to the unit. Orders received. See assessment for past medical history, medications and allergies. Patient and/or family oriented to unit. [facility] visitation policy reviewed. Clothing/patient valuable form completed. RADHA DICK
--- NOTE | 2020-05-08 15:32 | NUR ---
A 70, admitted to , under the services of Dr. NICHOLE RICK,SUNITA Archuleta with a diagnosis of uti. Chief complaint is . Patient arrived via ambulatory from ER. Monitor applied. Initial assessment completed. Vital signs taken and recorded. DR. NICHOLE RICK,SUNITA Archuleta notified of admission to the unit. Orders received. See assessment for past medical history, medications and allergies. Patient and/or family oriented to unit. [facility] visitation policy reviewed. Clothing/patient valuable form completed. BARON ANG
[2020-05-08] MEDS ORDERED: BUMETANIDE0.5 MG PO (15:43)
[2020-05-08] MEDS ORDERED: HYDR12.5C PO (15:43)
[2020-05-08] MEDS ORDERED: VITAMIN D31250 MC1 PO (15:44)
[2020-05-08] MEDS ORDERED: LEVEMIR100 UNIT/1 SQ (15:46)
--- NOTE | 2020-05-08 18:09 | NUR ---
PATIENT MEDICATED WITH TYLENOL PER ORDER FOR COMPLAINTS OF HEADACHE. WILL MONITOR FOR EFFECTIVENESS.
--- NOTE | 2020-05-08 20:00 | NUR ---
24 HR chart check completed.
--- NOTE | 2020-05-08 20:30 | NUR ---
RESTING IN BED. NO ACUTE DISTRESS NOTED. RESPIRATIONS EASY. LUNGS DIMINISHED, CLEAR. PULSE OX 100% RA. VSS. IV FLUIDS INFUSING PER ORDER. CALL LIGHT WITHIN REACH.
--- NOTE | 2020-05-08 22:57 | NUR ---
MEDICATED WITH TYLENOL PER PRN ORDER FOR COMPLAINTS OF HEADACHE RATING A 10. PER PT, HEADACHE IS ON-GOING SINCE HITTING HEAD ON HEADBOARD 04/14. PER PATIENT, SHE HAS SEEN MD AND HAD CT COMPLETED OUT-PT, NEGATIVE. WILL MONITOR
--- NOTE | 2020-05-08 23:30 | NUR ---
TYLENOL APPEARS EFFECTIVE. RESTING WITH EYES CLOSED. RESPIRATIONS EASY. IV FLUIDS MAINTAINED. CALL LIGHT WITHIN REACH
[2020-05-09] VITALS: BP 159/77
--- NOTE | 2020-05-09 00:30 | NUR ---
SLEEPING. RESPIRATIONS EASY. VSS. IV FLUIDS MAINTAINED. CALL LIGHT WITHIN REACH
[2020-05-09 06:28] LABS: CREATININE 1.19 mg/dL (0.55-1.02)
--- NOTE | 2020-05-09 06:37 | NUR ---
SLEPT THROUGHOUT NIGHT. UPON AWAKENING, C/O CHRONIC HEADACHE RATING A 10 - MEDICATED WITH TYLENOL PER PRN ORDER. IV FLUIDS MAINTAINED. CALL LIGHT WITHIN REACH. WILL MONITOR
--- NOTE | 2020-05-09 07:09 | NUR ---
TYLENOL APPEARS EFFECTIVE. SLEEPING. RESPIRATIONS EASY. IV FLUIDS MAINTAINED. CALL LIGHT WITHIN REACH
[2020-05-09 07:53] LABS: HEMATOCRIT 34.4 % (37.0-47.0); MEAN CELL VOLUME 73.3 fl (81.0-99.0); MEAN CORPUSCULAR HGB 21.1 pg (27.0-31.0); MEAN CORPUSCULAR HGB CONC 28.8 g/dl (33.0-37.0); NUCLEATED RED BLOOD CELL 0.3 % (0.0-0.0); PLATELET COUNT AUTOMATED 179 10*3/uL (130-400); RED BLOOD COUNT 4.69 10*6/uL (4.10-5.10); RED CELL DISTRI WIDTH 24.3 % (0-14.5); WHITE BLOOD COUNT 9.4 10*3/uL (4.8-10.8)
[2020-05-09 08:00] VITALS: BP 140/68
--- NOTE | 2020-05-09 08:00 | NUR ---
PATIENT RESTING IN BED C/O HEADACHE.
[2020-05-09 08:19] LABS: BASOPHILS 1 % (0-1); BURR CELLS FEW; MICROCYTOSIS SLIGHT; PLATELET SUFFICIENCY NORMAL (NORMAL); POLYCHROMASIA SLIGHT; SCHISTOCYTES FEW; TARGET CELLS FEW; TOTAL CELLS COUNTED 100 #CELLS
[2020-05-09 08:21] LABS: BLASTS 4 % (0-0)
[2020-05-09 12:00] VITALS: BP 112/53
--- NOTE | 2020-05-09 12:51 | NUR ---
Command Post Craftsman in to talk to patient. Patient states lives at HOME with . There are FEW steps in the home. Physician: DR. ANDREA OSWALD [facility] Patient's level of ADLs: MINIMAL ASSIST Patient has working utilities: YES DME: WALKER, STAIR CHAIR Follow-up physician's appointment after d/c: PATIENT PREFERS TO MAKE HER OWN AT DISCHARGE Does patient want to access PORTAL?: NO Discharge plan WELDER/FABRICATOR SPOKE WITH THE PATIENT. PATIENT LIVES IN AN UPSTAIRS APARTMETN WITH HER . PATIENT STATED SHE INDEPENDENT WITH ADLS/IADLS. PATIENT STATED A CHAIR LIFT WAS RECENTLY INSTALLED BY THE NE FOR HER , THEREFORE STEPS ARE NO LONGER A PROBLEM FOR THEM. 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 PATIENT STATED SHE WILL RETURN HOME AT DISCHARGE. AT THIS TIME THE PATIENT HAS NO NEEDS OR CONCERNS FAR DISCHARGE. HOWEVER, THE PATIENT EXPRESSED SHE IS HAVING SEREVE HEADACHES AND IT IS RADIATING ALL OVER HER HEAD AND INTO HER JAW. WELDER/FABRICATOR INFORMED SALVADOR BAKER OF THIS WHO STATED SHE IS WAITING FOR DR VARELA TO ROUND, AND IF HE DID NOT COME IN SOON SHE WOULD CALL HIM FOR AN ORDER FOR PAIN MEDICATION. WELDER/FABRICATOR INFORMED THE PATIENT OF THIS WHO WAS UNDERSTOOD. . NAINA OCONNOR
--- NOTE | 2020-05-09 13:09 | NUR ---
MEDICATED WITH PRN TORODOL FOR C/O OF HEADACHE FOR 26 DAYS.
[2020-05-09 16:00] VITALS: BP 121/66
[2020-05-09 20:00] VITALS: BP 142/61
--- NOTE | 2020-05-09 20:00 | NUR ---
24 HR chart check completed.
--- NOTE | 2020-05-09 20:00 | NUR ---
RESTING IN BED WITH NO DISTRESS NOTED. RESPIRATIONS EASY. LUNGS DIMINISHED, CLEAR. PULSE OX 98% RA. IV FLUIDS INFUSING PER ORDER. CALL LIGHT WITHIN REACH. NO VOICED COMPLAINTS
--- NOTE | 2020-05-09 21:40 | NUR ---
REQUESTED AND RECEIVED TORADOL PER PRN ORDER FOR COMPLAINTS OF HEADACHE RATING A 5. CALL LIGHT WITHIN REACH. WILL MONITOR
--- NOTE | 2020-05-09 22:15 | NUR ---
TORADOL EFFECTIVE. SLEEPING. RESPIRATIONS EASY. IV FLUIDS MAINTAINED. CALL LIGHT WITHIN REACH
[2020-05-10] VITALS: BP 139/51
--- NOTE | 2020-05-10 | NUR ---
REMAINS AWAKE BUT DROWSY. RESPIRATIONS EASY. VSS. IV FLUIDS MAINTAINED. CALL LIGHT WITHIN REACH. NO FURTHER VOICED COMPLAINTS
--- NOTE | 2020-05-10 06:14 | NUR ---
AWAKE, C/O HEADACHE RATING A 5. MEDICATED WITH TORADOL PER PRN ORDER. IV FLUIDS MAINTAINED. CALL LIGHT WITHIN REACH. WILL MONITOR
[2020-05-10 06:15] LABS: HEMATOCRIT 32.3 % (37.0-47.0); MEAN CELL VOLUME 73.9 fl (81.0-99.0); MEAN CORPUSCULAR HGB 21.1 pg (27.0-31.0); MEAN CORPUSCULAR HGB CONC 28.5 g/dl (33.0-37.0); NUCLEATED RED BLOOD CELL 0.2 % (0.0-0.0); PLATELET COUNT AUTOMATED 142 10*3/uL (130-400); RED BLOOD COUNT 4.37 10*6/uL (4.10-5.10); RED CELL DISTRI WIDTH 24.4 % (0-14.5); WHITE BLOOD COUNT 8.1 10*3/uL (4.8-10.8)
[2020-05-10 06:31] LABS: CREATININE 1.11 mg/dL (0.55-1.02); POTASSIUM 3.9 mmol/L (3.5-5.1)
--- NOTE | 2020-05-10 06:45 | NUR ---
TORADOL EFFECTIVE. PATIENT SLEEPING
[2020-05-10 07:08] LABS: ATYPICAL LYMPHS 1 % (0-0); BLASTS 4 % (0-0); BURR CELLS FEW; OVALOCYTES FEW; PLATELET SUFFICIENCY NORMAL (NORMAL); TOTAL CELLS COUNTED 100 #CELLS
[2020-05-10 07:09] LABS: MICROCYTOSIS SLIGHT; ROULEAUX SLIGHT; SCHISTOCYTES FEW
[2020-05-10 08:00] VITALS: BP 146/60
[2020-05-10 12:00] VITALS: BP 130/56
--- NOTE | 2020-05-10 12:17 | NUR ---
MEDICATED WITHTORODOL PER ORDER AND REQUEST.
[2020-05-10] MEDS ORDERED: AUGMENTIN 875-875 MG PO (15:27)
[2020-05-10 16:00] VITALS: BP 143/50
--- NOTE | 2020-05-10 16:40 | NUR ---
Discharge instructions reviewed with patient/family. Patient receptive and verbalizes understanding. Follow-up care arranged. Written instructions given to patient/family. SAMARA ALFREDO
== END 2020-05-10 16:42 | disposition home or self-care (01) ==
LOC: ED 09:52 → EDHOLD 14:34 → 4E 14:34
PROVIDERS: Internal Medicine; ADMIT Internal Medicine
DX: R55 Syncope and collapse (principal); N39.0 Urinary tract infection, site not specified; B96.20 Unspecified Escherichia coli [E. coli] as the cause of diseases classified elsewhere; B95.5 Unspecified streptococcus as the cause of diseases classified elsewhere; E66.01 Morbid (severe) obesity due to excess calories; E11.9 Type 2 diabetes mellitus without complications; I25.10 Atherosclerotic heart disease of native coronary artery without angina pectoris; M54.9 Dorsalgia, unspecified; G89.29 Other chronic pain

== ENCOUNTER → 2020-05-15 | Outpatient (CLI) | payer OTHER ==
[~2020-05-15] MED LIST changes: +BUMETANIDE0.5 MG PO; +HYDR12.5C PO; +LEVEMIR100 UNIT/1 SQ; +VITAMIN D31250 MC1 PO
[2020-05-15 09:04] LABS: HEMATOCRIT 32.5 % (37.0-47.0); MEAN CELL VOLUME 71.9 fl (81.0-99.0); MEAN CORPUSCULAR HGB CONC 29.2 g/dl (33.0-37.0); NUCLEATED RED BLOOD CELL 0.1 10*3/uL (0.0-0.0); NUCLEATED RED BLOOD CELL 0.7 % (0.0-0.0); PLATELET COUNT AUTOMATED 169 10*3/uL (130-400); RED BLOOD COUNT 4.52 10*6/uL (4.10-5.10); RED CELL DISTRI WIDTH 24.1 % (0-14.5); WHITE BLOOD COUNT 9.2 10*3/uL (4.8-10.8)
[2020-05-15 09:29] LABS: BILIRUBIN NEGATIVE (NEGATIVE); BLOOD NEGATIVE (NEGATIVE); CLARITY SL CLOUDY (CLEAR); COLOR YELLOW (YELLOW); GLUCOSE NEGATIVE (NEGATIVE); KETONE NEGATIVE (NEGATIVE); LEUKO ESTERASE 1+ (NEGATIVE); NITRITE NEGATIVE (NEGATIVE); UROBILINOGEN 0.2 E.U./dl (0.2-1.0)
[2020-05-15 09:31] LABS: ALBUMIN 3.2 gm/dl (3.1-4.5); BUN 9 mg/dl (7-24); CHLORIDE 103 mmol/L (98-107); CHOLESTEROL 127 mg/dL (<200); CREATININE 1.02 mg/dL (0.55-1.02); POTASSIUM 4.4 mmol/L (3.5-5.1); SGOT/AST 29 IU/L (3-35); SGPT/ALT 29 U/L (12-78); SODIUM 136 mmol/L (136-145); TRIGLYCERIDES 199 mg/dl (<150); VLDL CHOLESTEROL 40 mg/dL (6-40)
[2020-05-15 09:40] LABS: TOTAL CELLS COUNTED 100 #CELLS
[2020-05-15 09:41] LABS: ALKALINE PHOSPHATASE 87 U/L (45-117); BLASTS 1 % (0-0); BURR CELLS FEW; HDL CHOLESTEROL 36 mg/dl (40-60); LDL CHOLESTEROL 51 mg/dL (9-159); MICROCYTOSIS SLIGHT; OVALOCYTES FEW; POLYCHROMASIA SLIGHT; SCHISTOCYTES FEW; TOTAL PROTEIN 7.2 gm/dL (6.4-8.2)
[2020-05-15 09:42] LABS: PLATELET SUFFICIENCY NORMAL (NORMAL); TARGET CELLS FEW
[2020-05-15 10:25] LABS: BACTERIA TRACE
[2020-05-15 10:26] LABS: YEAST 1+
== END | disposition home or self-care (01) ==
LOC: LAB 08:32
PROVIDERS: Student in an Organized Health Care Education/Training Program
DX: E11.9 Type 2 diabetes mellitus without complications (principal); E55.9 Vitamin D deficiency, unspecified; Z79.899 Other long term (current) drug therapy

== ENCOUNTER → 2020-05-25 | Outpatient (CLI) | payer OTHER | END | disposition home or self-care (01) | LOC: RAD 14:29 | DX: R06.02 Shortness of breath (principal) ==

== ENCOUNTER 2020-06-01 13:32 | Inpatient (IN) | payer OTHER ==
[~2020-06-01] VITALS: Ht 162.5 cm; Wt 124.7 kg
[2020-06-01 14:06] VITALS: BP 125/50
[2020-06-01 14:10] LABS: HEMATOCRIT 25.9 % (37.0-47.0); MEAN CORPUSCULAR HGB 20.5 pg (27.0-31.0); MEAN CORPUSCULAR HGB CONC 29.3 g/dl (33.0-37.0); NUCLEATED RED BLOOD CELL 0.1 10*3/uL (0.0-0.0); NUCLEATED RED BLOOD CELL 0.7 % (0.0-0.0); PLATELET COUNT AUTOMATED 157 10*3/uL (130-400); RED CELL DISTRI WIDTH 24.2 % (0-14.5); WHITE BLOOD COUNT 11.6 10*3/uL (4.8-10.8)
[2020-06-01 14:34] LABS: ACT PARTIAL THROMBO TIME 31.3 SECONDS (20.0-32.1); INTERNATIONAL NORM RATIO 1.1 (2.0-3.5)
[2020-06-01 14:50] LABS: ALBUMIN 3.1 gm/dl (3.1-4.5); ALKALINE PHOSPHATASE 80 U/L (45-117); BUN 24 mg/dl (7-24); CHLORIDE 102 mmol/L (98-107); POTASSIUM 5.1 mmol/L (3.5-5.1); SGOT/AST 22 IU/L (3-35); SGPT/ALT 24 U/L (12-78); SODIUM 131 mmol/L (136-145); TOTAL PROTEIN 7.2 gm/dL (6.4-8.2)
[2020-06-01 14:52] LABS: TROPONIN I < 0.015 ng/ml (<0.045)
[2020-06-01 15:31] VITALS: BP 116/54
--- NOTE | 2020-06-01 17:20 | NUR ---
PT STATES BREATHING IS NO BETTER AFTER MEDICATION AND INHALER
[2020-06-01] MEDS ORDERED: PROVENTIL HFA6.7 GM INH (18:16)
[2020-06-01 18:54] VITALS: BP 121/57
--- NOTE | 2020-06-01 19:00 | NUR ---
PT TO CT
--- NOTE | 2020-06-01 19:04 | NUR ---
PT REFUSED TO TAKE OF PANTS IN ORDER TO STAY WARM PT REFUSED PERMISSION TO TAKE PICTURES PT HAD SOME NOTED EXCORIATION UNDER BREASTS WITH VARIOUS SCABBED OVER SCRATCHES OF LOWER EXTREMITIES AND VARIOUS BODY PARTS
--- NOTE | 2020-06-01 19:45 | NUR ---
PATIENT UP TO USE BESIDE COMMODE AT THIS TIME, PATIENT EXTREMELY SHORT OF BREATH. INSPIRATORY AND EXPIRATORY WHEEZING NOTED AT THIS TIME. PATIENTS SPO2 DECREASED TO 85% ON 4L O2 VIA NASAL CANNULA WITH EXERTION. PATIENT HELPED BACK INTO BED AND LABORED BREATHING NOTED. DR ORTIZ AND DR VIZCARRA AWARE.
--- NOTE | 2020-06-01 20:30 | NUR ---
VERBAL ORDER FROM DR HARRIS TO DISCONTINUE FLUIDS AT THIS TIME.
--- NOTE | 2020-06-01 21:00 | NUR ---
Pt given 2 puffs Albuterol. No comps. BBS wheeze
[2020-06-01 21:30] VITALS: BP 146/60
--- NOTE | 2020-06-01 21:30 | NUR ---
A 70, admitted to , under the services of BABS Chavez DO with a diagnosis of CHF/Covid. Chief complaint is shortnes of breath. Patient arrived via stretcher from ER. Monitor applied. Initial assessment completed. Vital signs taken and recorded. BABS CHAVEZ DO notified of admission to the unit. Orders received. See assessment for past medical history, medications and allergies. Patient and/or family oriented to unit. [facility] visitation policy reviewed. Clothing/patient valuable form completed. RASHMI MATAMOROS
--- NOTE | 2020-06-01 21:45 | NUR ---
PATIENT HAS MULTIPLE SCABS AND SCRATCHES TO BLE. OFFERED TO PHOTOGRAPH WOUNDS. PATIENT REFUSING. STATES "THESE ARE JUST SCRATCHES AND DO NOT NEED TREATMENT" NOTIFIED DR. HARRIS. STATED SHE WOULD PUT WOUND CARE ORDERS IN.
[2020-06-01 23:05] LABS: ABG BASE EXCESS -3.3 mmol/L (-2.0-2.0); ARTERIAL BLOOD GAS PH 7.362 (7.35-7.45)
[2020-06-02] VITALS: BP 152/62
[2020-06-02 05:48] LABS: ALBUMIN 3.1 gm/dl (3.1-4.5); CREATININE 1.55 mg/dL (0.55-1.02); POTASSIUM 5.7 mmol/L (3.5-5.1); TOTAL PROTEIN 7.4 gm/dL (6.4-8.2)
[2020-06-02 05:49] LABS: FREE T4 1.13 ng/dl (0.76-1.46)
[2020-06-02 05:54] LABS: THYROID STIM HORMONE (HS) 0.957 uIU/ml (0.358-4.75)
[2020-06-02 05:57] LABS: HEMATOCRIT 25.3 % (37.0-47.0); MEAN CELL VOLUME 70.9 fl (81.0-99.0); MEAN CORPUSCULAR HGB 20.7 pg (27.0-31.0); MEAN CORPUSCULAR HGB CONC 29.2 g/dl (33.0-37.0); NUCLEATED RED BLOOD CELL 0.1 10*3/uL (0.0-0.0); NUCLEATED RED BLOOD CELL 0.5 % (0.0-0.0); PLATELET COUNT AUTOMATED 123 10*3/uL (130-400); RED BLOOD COUNT 3.57 10*6/uL (4.10-5.10); WHITE BLOOD COUNT 12.7 10*3/uL (4.8-10.8)
[2020-06-02 06:46] LABS: ACT PARTIAL THROMBO TIME 31.3 SECONDS (20.0-32.1); INTERNATIONAL NORM RATIO 1.1 (2.0-3.5)
--- NOTE | 2020-06-02 06:52 | NUR ---
NOTIFIED DR. SPIVEY OF NEW CONSULT.
[2020-06-02 07:22] LABS: FERRITIN 348.6 ng/mL (10.0-291.0)
[2020-06-02 08:00] VITALS: BP 128/50
--- NOTE | 2020-06-02 08:02 | NUR ---
INITIAL ASSESSMENT COMPLETE.VITALS OBTAINED. PT RESTING WITH EYES CLOSED.AROUSES EASILY. SPO2 97% ON 2LNC/NON DEP. LUNGS DIM TO PB NO WHEEZES NOTED.PT C/O EXERTIONAL DYSPNEA,NOTED WHILE PT SPEAKS. SHER DRAING 650 YELLOW,CLEAR URINE.PT REPORTS NO OTHER C/O AT THIS TIME.BREAKFAST ORDERED.BED ALARM INTACT. CALL LIGHT IN REACH.WILL CONTINUE TO MONITOR.
--- NOTE | 2020-06-02 08:06 | NUR ---
Nursing screen received and chart reviewed. Patient admitted for SOB, PNA, CHF, and suspected COVID19 virus. If patient has a decline in ADLs, transfers, or functional mobility, please send OT orders when medically appropriate. Thank you. Britney Tomlinson, OTR/L
[2020-06-02 08:08] LABS: TOTAL CELLS COUNTED 100 #CELLS
[2020-06-02 08:09] LABS: MICROCYTOSIS SLIGHT; OVALOCYTES FEW; PLATELET SUFFICIENCY LOW (NORMAL); SPHEROCYTES FEW
--- NOTE | 2020-06-02 08:10 | NUR ---
PHYSICAL THERAPY Screen received, pt admitted form home w hypoxia, CHF, pnemonia ruling out COVID. Please consult PT if pts functional status declines from baseline. Thank you. Shanti Camarillo SPT Denia Fonseca PT
--- NOTE | 2020-06-02 09:31 | NUR ---
MEDS RECONCILED WITH PT NEW PREFERRED PHARMACY, [facility].
--- NOTE | 2020-06-02 09:45 | NUR ---
DR SPIVEY ROUNDED AND SEEN PT AT BEDSIDE. ORDERS RECIEVED.
--- NOTE | 2020-06-02 10:50 | NUR ---
ANGLE DESAI ROUNDED BUT PT REFUSED WOUNDCARE. PT STATES SHE DOESN'T WAnt PHOTOIS OF HER SCABS AND SHE DOESNT WANT TX. 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
--- NOTE | 2020-06-02 11:32 | NUR ---
DR JONES ROUNDED AND SEEN PT.
[2020-06-02 12:00] VITALS: BP 128/50
--- NOTE | 2020-06-02 15:46 | NUR ---
NOTIFIED DR PEÑA OF [facility],MEDICATED PER SLIDING SCALE,SEE MAR. PER DR PEÑA WE WILL CONTINUE TO MONITOR.
[2020-06-02 16:00] VITALS: BP 141/64
--- NOTE | 2020-06-02 17:23 | NUR ---
PT UPO TO [facility] AND HAD MEDIUM BM. STOOL SAMPLES OBTAINED PER PHYSICIAN ORDER AND SENT. PT BACK TO CHAIR AT BEDSIDE. TOLERATING AMBULATION WELL. VOICES NO OTHER NEEDS AT THIS TIME. CALL LIGHT IN REACH.
[2020-06-02 20:00] VITALS: BP 127/49; BP 141/59
[2020-06-03] VITALS: BP 137/60
[2020-06-03 06:30] LABS: HEMATOCRIT 26.5 % (37.0-47.0); MEAN CELL VOLUME 70.9 fl (81.0-99.0); MEAN CORPUSCULAR HGB 20.3 pg (27.0-31.0); MEAN CORPUSCULAR HGB CONC 28.7 g/dl (33.0-37.0); NUCLEATED RED BLOOD CELL 0.1 10*3/uL (0.0-0.0); NUCLEATED RED BLOOD CELL 0.7 % (0.0-0.0); PLATELET COUNT AUTOMATED 150 10*3/uL (130-400); RED BLOOD COUNT 3.74 10*6/uL (4.10-5.10); RED CELL DISTRI WIDTH 24.2 % (0-14.5); WHITE BLOOD COUNT 10.7 10*3/uL (4.8-10.8)
[2020-06-03 06:55] LABS: ALBUMIN 3.1 gm/dl (3.1-4.5); CREATININE 1.38 mg/dL (0.55-1.02); POTASSIUM 4.5 mmol/L (3.5-5.1); TOTAL PROTEIN 7.7 gm/dL (6.4-8.2)
--- NOTE | 2020-06-03 07:00 | NUR ---
ARRIVED ON SHIFT, REPORT FROM OFFGOING NURSE, ASSUMED CARE OF PATIENT.
--- NOTE | 2020-06-03 07:21 | NUR ---
Shift chart check completed.
--- NOTE | 2020-06-03 07:45 | NUR ---
INTRODUCED SELF TO PATIENT, BED IN LOW POSITION, WHEEL LOCKS ENGAGED, SIDE RAILS FOR TURNING AND REPOSITIONING, CALL LIGHT WITHING REACH, NO NEEDS VOICED AT THIS TIME, WHITE BOARD UPDATED.
--- NOTE | 2020-06-03 07:49 | NUR ---
RECEIVED CALL FROM LAB, WITH CRITCAL BLASTS IN DIFFERENTIAL OF 3, CALL PLACED TO HOSPITALIST AND SPOKE WITH DR. PEÑA TO NOTIFY OF RESULT.
[2020-06-03 07:59] LABS: TOTAL CELLS COUNTED 100 #CELLS
[2020-06-03 08:00] VITALS: BP 138/66
[2020-06-03 08:04] LABS: BLASTS 3 % (0-0)
[2020-06-03 08:05] LABS: PLATELET SUFFICIENCY NORMAL (NORMAL)
[2020-06-03 08:06] LABS: MICROCYTOSIS SLIGHT; OVALOCYTES FEW; POLYCHROMASIA SLIGHT; SCHISTOCYTES FEW; TARGET CELLS FEW
--- NOTE | 2020-06-03 09:00 | NUR ---
Multigrapher in to talk to patient. Patient states lives at home with . There are 2 steps in the home. Physician: karishma [facility]: none Patient's level of ADLs: INDEPENDENT Patient has working utilities: all working DME: walker, stair chair Follow-up physician's appointment after d/c: will be made by hospitalist nurse director upon discharge Does patient want to access PORTAL?: no Discharge plan discussed with patient, she lives at home with , she is independent in adls and ambulation, she states she will return home when discharged and denies any home needs, case management will follow. DIPAK MACHUCA
[2020-06-03 10:38] LABS: BASOPHILS 1 % (0-1); BLASTS 3 % (0-0)
--- NOTE | 2020-06-03 10:58 | NUR ---
CALL PLACED TO HOSPITALIST LINE, ADVISED OF REPORT OUT RESULTS CHANGES, DR. PEÑA VERSED HE WILL LOOK AT THEM WHEN THEY ARE PUT IN BY LAB.
--- NOTE | 2020-06-03 11:35 | NUR ---
CALL PLACED TO DR. SPIVEY, ADVISED PATIENTS COVID RESULT IS -, AND HER OCCULT BLOOD IS +, HE VERSED PATIENT IS TO REMAIN IN ISOLATION AND CONTINUE CURRENT TX PLAN.
[2020-06-03 12:00] VITALS: BP 142/65
[2020-06-03 16:00] VITALS: BP 110/56
[2020-06-03 20:00] VITALS: BP 153/57
--- NOTE | 2020-06-03 20:40 | NUR ---
PATIENT UP WALKING AROUND ROOM. I HELPED MAKE HER BED. PATIENT IS CHEERFUL, TALKATIVE, PLEASANT MOOD. ON 2L NC 98-100%. LUNGS ARE DIMINISHED, CLEAR. PATIENT IS AWARE WE NEED A SPUTUM SAMPLE FROM HER. PATIENT HAVING FREQUENT BOWEL MOVEMENT AND URINATION. NON-PRODUCTIVE COUGH AT TIMES. EDEMA TO LOWER EXTREMITIES, 1+ NONPITTING. SCABS TO LOWER EXTREMITIES, PATIENT STILL DOES NOT WANT CARE FOR THESE SCABS. SHE STATED SHE HAD "PICKED" AT ONE EARLIER AND IT HAD BLED BUT THAT "IT IS FINE NOW." ROOM CLEANED UP. SHE STATED SHE GOT A BED BATH EARLIER AND FEELS MUCH BETTER NOW. NO COMPLAINTS AT THIS TIME. ON THE PHONE WITH HER WHEN I LEFT PATIENT'S ROOM.
--- NOTE | 2020-06-03 22:31 | NUR ---
RESTORIL GIVEN PER PATIENT REQUEST FOR COMPLAINTS OF INSOMNIA. WILL ASSESS EFFECTIVENESS.
--- NOTE | 2020-06-03 23:30 | NUR ---
RESTORIL EFFECTIVE. PATIENT RESTING IN BED WITH EYES CLOSED. VITALS STABLE. RESPIRATIONS EASY, REGULAR, NO DISTRESS NOTED. PULSE OX 99% ON 2L NC. CALL LIGHT WITHIN REACH. WILL CONTINUE TO MONITOR.
[2020-06-04] VITALS: BP 157/64
[2020-06-04 06:26] LABS: HEMATOCRIT 25.7 % (37.0-47.0); MEAN CORPUSCULAR HGB 20.4 pg (27.0-31.0); MEAN CORPUSCULAR HGB CONC 28.8 g/dl (33.0-37.0); NUCLEATED RED BLOOD CELL 0.1 10*3/uL (0.0-0.0); NUCLEATED RED BLOOD CELL 0.7 % (0.0-0.0); PLATELET COUNT AUTOMATED 136 10*3/uL (130-400); RED BLOOD COUNT 3.62 10*6/uL (4.10-5.10); RED CELL DISTRI WIDTH 24.2 % (0-14.5); WHITE BLOOD COUNT 9.8 10*3/uL (4.8-10.8)
[2020-06-04 06:36] LABS: BASOPHILS 1 % (0-1); BLASTS 3 % (0-0); PLATELET SUFFICIENCY NORMAL (NORMAL); TOTAL CELLS COUNTED 100 #CELLS
[2020-06-04 06:37] LABS: ACANTHOCYTES FEW; BURR CELLS FEW; MICROCYTOSIS SLIGHT; OVALOCYTES FEW; POLYCHROMASIA SLIGHT; ROULEAUX SLIGHT; SCHISTOCYTES FEW; TARGET CELLS FEW
[2020-06-04 06:54] LABS: CREATININE 1.17 mg/dL (0.55-1.02); POTASSIUM 4.7 mmol/L (3.5-5.1)
[2020-06-04 06:55] LABS: BASOPHILS 1 % (0-1); TOTAL CELLS COUNTED 100 #CELLS
[2020-06-04 06:56] LABS: ACANTHOCYTES FEW; BLASTS 3 % (0-0); OVALOCYTES FEW; PLATELET SUFFICIENCY NORMAL (NORMAL); POLYCHROMASIA SLIGHT; SCHISTOCYTES MODERATE; TARGET CELLS FEW
[2020-06-04 06:57] LABS: MICROCYTOSIS SLIGHT; ROULEAUX SLIGHT
--- NOTE | 2020-06-04 07:00 | NUR ---
ARRIVED ON SHIFT, REPORT RECEIVED FROM OFFGOING NURSE, ASSUMED CARE OF PATIENT.
--- NOTE | 2020-06-04 07:45 | NUR ---
INTRODUCED SELF TO PATIENT BED IN LOW POSITION, WHEEL LOCKS ENGAGED, SIDE RAILS UP X 2 FOR TURNING AND REPOSITIONING, CALL LIGHT WITHIN REACH, NO NEEDS VOICED AT THIS TIME.
[2020-06-04 08:00] VITALS: BP 126/55
--- NOTE | 2020-06-04 09:00 | NUR ---
SPOKE WITH DR. SPIVEY ADVISED OF PATIENT HEMAGLOBIN 7.4, HE VERSED TO CONTINUE WITH CURRENT DOSE OF LOVENOX ORDERED BID,DR. JONES AWARE.
[2020-06-04] MEDS ORDERED: Carafate1 GM PO (09:44)
[2020-06-04] MEDS ORDERED: PANTOPRAZOLE SO40 MG PO (09:44)
[2020-06-04] MEDS ORDERED: DECADRON6 M1 PO (09:45)
[2020-06-04] MEDS ORDERED: AZITHROMYCIN500 M2 PO (09:47)
[2020-06-04] MEDS ORDERED: Lovenox40 MG/0.4 SC (09:51)
--- NOTE | 2020-06-04 09:59 | NUR ---
Shift chart check completed.
--- NOTE | 2020-06-04 11:00 | NUR ---
PATIENT ASSESSED FOE HOME OXYGEN. AT REST: HEART RATE:91 RESPIRATORY RATE:18 BLOOD PRESSURE:126/55 SPO2:97% DURING AMBULATION THE PATIENT DID SHOW ANY SIGNS OF RESPIRATORY DISTRESS, BUT DID SHW SIGNS OF DECONDITIONING. HAERT RATE:98 RESPIRATORY RATE:22 SPO2:93% PATIENT DOES NEED HOME OXYGEN.
--- NOTE | 2020-06-04 11:41 | NUR ---
RANGE AIDE CONTACTED [facility]. THEY ARE RUNNING COST FOR LOVENOX 40MG X2 DAILY FOR 45 DAYS, A TOTAL OF 90 DOSES. THEY WILL CALL THIS RANGE AIDE BACK WITH COST. CASE MANAGE IS AWARE.
--- NOTE | 2020-06-04 11:45 | NUR ---
CASE MANAGEMENT RECEIVED CALL BACK FROM [facility], IT WOULD BE A $200.00 COST FOR A 45 DAY SUPPLY.
--- NOTE | 2020-06-04 12:02 | NUR ---
case management talks with patient, she is being discharged to home today, discussed with her VNA and she was receptive to this, she stated she has used [facility] in the past and would like them again, case management will contact [facility] and will notify them that patient is discharged to home today
--- NOTE | 2020-06-04 13:45 | NUR ---
Discharge instructions reviewed with patient/family. Patient receptive and verbalizes understanding. Follow-up care arranged. Written instructions given to patient/family. TELEMETRY REMOVED, IV REMOVED TAKEN OUT VIA W/C BY SHANIQUE KINNEY
== END 2020-06-04 13:45 | disposition home health service (06) | DRG 871 ==
LOC: ED 13:32 → EDHOLD 17:08 → 4E 17:08
PROVIDERS: Emergency Medicine; Internal Medicine; Internal Medicine Critical Care Medicine; ADMIT Internal Medicine; ATTEND Internal Medicine
DX: A41.9 Sepsis, unspecified organism (principal); N17.0 Acute kidney failure with tubular necrosis; J96.01 Acute respiratory failure with hypoxia; J15.6 Pneumonia due to other Gram-negative bacteria; K92.2 Gastrointestinal hemorrhage, unspecified; D68.59 Other primary thrombophilia; Z68.41 Body mass index [BMI] 40.0-44.9, adult; R65.20 Severe sepsis without septic shock; I50.9 Heart failure, unspecified; Z20.828 Contact with and (suspected) exposure to other viral communicable diseases; F32.9 Major depressive disorder, single episode, unspecified; K21.9 Gastro-esophageal reflux disease without esophagitis; E66.01 Morbid (severe) obesity due to excess calories; E11.65 Type 2 diabetes mellitus with hyperglycemia; D72.829 Elevated white blood cell count, unspecified; D50.9 Iron deficiency anemia, unspecified; R33.9 Retention of urine, unspecified; R16.1 Splenomegaly, not elsewhere classified; E87.5 Hyperkalemia; I11.0 Hypertensive heart disease with heart failure; Z90.49 Acquired absence of other specified parts of digestive tract; Z90.710 Acquired absence of both cervix and uterus; Z83.3 Family history of diabetes mellitus; Z82.49 Family history of ischemic heart disease and other diseases of the circulatory system; Z85.42 Personal history of malignant neoplasm of other parts of uterus; Z85.038 Personal history of other malignant neoplasm of large intestine; Z86.73 Personal history of transient ischemic attack (TIA), and cerebral infarction without residual deficits; Z79.4 Long term (current) use of insulin

== ENCOUNTER → 2020-06-16 | Outpatient (CLI) | payer OTHER ==
[~2020-06-16] MED LIST changes: +AZITHROMYCIN500 M2 PO; +DECADRON6 M1 PO; +Lovenox40 MG/0.4 SC; +PANTOPRAZOLE SO40 MG PO; +PROVENTIL HFA6.7 GM INH
== END | disposition home or self-care (01) ==
LOC: CARD 13:37
PROVIDERS: ATTEND Internal Medicine
DX: R60.0 Localized edema (principal)

== ENCOUNTER 2020-06-24 19:42 | Emergency (ER) | payer OTHER ==
[~2020-06-24] VITALS: Ht 162.5 cm; Wt 1183.9 kg
[2020-06-24 20:33] LABS: HEMATOCRIT 28.3 % (37.0-47.0); MEAN CELL VOLUME 71.5 fl (81.0-99.0); MEAN CORPUSCULAR HGB 20.2 pg (27.0-31.0); MEAN CORPUSCULAR HGB CONC 28.3 g/dl (33.0-37.0); NUCLEATED RED BLOOD CELL 0.1 10*3/uL (0.0-0.0); NUCLEATED RED BLOOD CELL 0.7 % (0.0-0.0); PLATELET COUNT AUTOMATED 110 10*3/uL (130-400); RED BLOOD COUNT 3.96 10*6/uL (4.10-5.10); RED CELL DISTRI WIDTH 24.6 % (0-14.5); WHITE BLOOD COUNT 6.8 10*3/uL (4.8-10.8)
[2020-06-24 20:45] LABS: CREATININE 1.66 mg/dL (0.55-1.02); POTASSIUM 4.2 mmol/L (3.5-5.1); TOTAL PROTEIN 6.9 gm/dL (6.4-8.2)
[2020-06-24 21:05] LABS: BASOPHILS 4 % (0-1); TOTAL CELLS COUNTED 100 #CELLS
[2020-06-24 21:07] LABS: BLASTS 1 % (0-0); MICROCYTOSIS SLIGHT; PLATELET SUFFICIENCY LOW (NORMAL)
[2020-06-24 21:08] LABS: ACANTHOCYTES FEW; SCHISTOCYTES FEW; STOMATOCYTE FEW
== END 2020-06-25 02:29 | disposition home or self-care (01) ==
LOC: ED 19:42
PROVIDERS: Student in an Organized Health Care Education/Training Program
DX: R51 Headache (principal); E66.01 Morbid (severe) obesity due to excess calories; I50.9 Heart failure, unspecified; K21.9 Gastro-esophageal reflux disease without esophagitis; I11.0 Hypertensive heart disease with heart failure; E11.9 Type 2 diabetes mellitus without complications; Z79.899 Other long term (current) drug therapy; Z79.82 Long term (current) use of aspirin; Z86.718 Personal history of other venous thrombosis and embolism

== ENCOUNTER 2020-08-12 13:41 | Inpatient (IN) | payer OTHER ==
[~2020-08-12] VITALS: Ht 162.5 cm; Wt 103.6 kg
[2020-08-12 13:49] VITALS: BP 105/51
[2020-08-12 14:56] LABS: BILIRUBIN Negative (Negative); BLOOD Trace-Lysed (Negative); CLARITY Clear (Clear); COLOR Yellow (Yellow); GLUCOSE 3+ (Negative); KETONE Negative (Negative); LEUKO ESTERASE 2+ (Negative); NITRITE Negative (Negative); SPECIFIC GRAVITY 1.015 (1.001-1.030)
[2020-08-12 14:58] LABS: HEMATOCRIT 30.2 % (37.0-47.0); MEAN CELL VOLUME 66.5 fl (81.0-99.0); MEAN CORPUSCULAR HGB 19.8 pg (27.0-31.0); MEAN CORPUSCULAR HGB CONC 29.8 g/dl (33.0-37.0); NUCLEATED RED BLOOD CELL 0.1 10*3/uL (0.0-0.0); NUCLEATED RED BLOOD CELL 0.9 % (0.0-0.0); PLATELET COUNT AUTOMATED 104 10*3/uL (130-400); RED BLOOD COUNT 4.54 10*6/uL (4.10-5.10); RED CELL DISTRI WIDTH 23.3 % (0-14.5); WHITE BLOOD COUNT 14.3 10*3/uL (4.8-10.8)
[2020-08-12 15:05] LABS: INTERNATIONAL NORM RATIO 1.1 (2.0-3.5)
[2020-08-12 15:19] LABS: BACTERIA 1+; RBC 16-20 rbc/hpf (0-2); WBC 31-40 wbc/hpf (0-5); YEAST 1+
[2020-08-12 15:27] LABS: ALBUMIN 3.5 gm/dl (3.1-4.5); ALKALINE PHOSPHATASE 95 U/L (45-117); BUN 30 mg/dl (7-24); CHLORIDE 90 mmol/L (98-107); CREATININE 1.72 mg/dL (0.55-1.02); POTASSIUM 3.2 mmol/L (3.5-5.1); SGOT/AST 25 IU/L (3-35); SGPT/ALT 22 U/L (12-78); SODIUM 128 mmol/L (136-145); TOTAL PROTEIN 7.5 gm/dL (6.4-8.2)
[2020-08-12 15:39] LABS: TROPONIN I < 0.015 ng/ml (<0.045)
[2020-08-12 20:49] VITALS: BP 106/52
[2020-08-12 23:25] VITALS: BP 117/60
[2020-08-12 23:30] VITALS: BP 137/55
[2020-08-13] MEDS ORDERED: JARDIANCE25 MG PO (01:07)
[2020-08-13] MEDS ORDERED: XIFAXAN200 M1 PO (01:15)
[2020-08-13] MEDS ORDERED: VICTOZA 2-0.6 MG/0.1 SQ (01:16)
[2020-08-13 07:39] LABS: INTERNATIONAL NORM RATIO 1.1 (2.0-3.5)
[2020-08-13 07:41] LABS: ALBUMIN 3.5 gm/dl (3.1-4.5); CREATININE 1.39 mg/dL (0.55-1.02); TOTAL PROTEIN 7.4 gm/dL (6.4-8.2)
[2020-08-13 07:50] LABS: HEMATOCRIT 30.4 % (37.0-47.0); MEAN CELL VOLUME 67.4 fl (81.0-99.0); MEAN CORPUSCULAR HGB 19.5 pg (27.0-31.0); MEAN CORPUSCULAR HGB CONC 28.9 g/dl (33.0-37.0); NUCLEATED RED BLOOD CELL 0.1 10*3/uL (0.0-0.0); NUCLEATED RED BLOOD CELL 0.5 % (0.0-0.0); PLATELET COUNT AUTOMATED 106 10*3/uL (130-400); RED BLOOD COUNT 4.51 10*6/uL (4.10-5.10); RED CELL DISTRI WIDTH 23.3 % (0-14.5); WHITE BLOOD COUNT 16.8 10*3/uL (4.8-10.8)
[2020-08-13 07:50] LABS: THYROID STIM HORMONE (HS) 2.06 uIU/ml (0.358-4.75)
[2020-08-13 08:00] VITALS: BP 131/57
[2020-08-13] MEDS ORDERED: VICTOZA 3-0.6 MG/0.1 SQ (08:06)
[2020-08-13] MEDS ORDERED: CRESTOR5 MG PO (08:07)
[2020-08-13] MEDS ORDERED: HUMALOG100 UNIT/2 SC (08:08)
[2020-08-13 08:15] LABS: BASOPHILS 1 % (0-1); TOTAL CELLS COUNTED 100 #CELLS
[2020-08-13 08:16] LABS: BLASTS 4 % (0-0); MICROCYTOSIS MODERATE; PLATELET SUFFICIENCY LOW (NORMAL); POLYCHROMASIA SLIGHT; SCHISTOCYTES FEW
[2020-08-13 08:17] LABS: OVALOCYTES FEW
[2020-08-13] MEDS ORDERED: VITAMIN D31250 MCG PO (08:21)
[2020-08-13 12:00] VITALS: BP 128/62
[2020-08-13 16:00] VITALS: BP 132/52
[2020-08-13 20:00] VITALS: BP 129/43
[2020-08-14] VITALS: BP 118/40
[2020-08-14 06:12] LABS: CREATININE 1.59 mg/dL (0.55-1.02); POTASSIUM 3.6 mmol/L (3.5-5.1)
[2020-08-14 06:34] LABS: HEMATOCRIT 30.5 % (37.0-47.0); MEAN CELL VOLUME 68.7 fl (81.0-99.0); MEAN CORPUSCULAR HGB 19.6 pg (27.0-31.0); MEAN CORPUSCULAR HGB CONC 28.5 g/dl (33.0-37.0); NUCLEATED RED BLOOD CELL 0.1 10*3/uL (0.0-0.0); NUCLEATED RED BLOOD CELL 0.5 % (0.0-0.0); PLATELET COUNT AUTOMATED 107 10*3/uL (130-400); RED BLOOD COUNT 4.44 10*6/uL (4.10-5.10); RED CELL DISTRI WIDTH 23.4 % (0-14.5); WHITE BLOOD COUNT 23.2 10*3/uL (4.8-10.8)
[2020-08-14 07:58] LABS: BASOPHILS 1 % (0-1); TOTAL CELLS COUNTED 100 #CELLS
[2020-08-14 07:59] LABS: BLASTS 3 % (0-0)
[2020-08-14 08:00] VITALS: BP 124/62
[2020-08-14 08:01] LABS: MICROCYTOSIS MODERATE
[2020-08-14 08:02] LABS: OVALOCYTES FEW; SCHISTOCYTES FEW
[2020-08-14 08:03] LABS: PLATELET SUFFICIENCY LOW (NORMAL)
[2020-08-14 12:00] VITALS: BP 132/72
[2020-08-14 16:00] VITALS: BP 132/66
[2020-08-14 17:23] LABS: BILIRUBIN Negative (Negative); BLOOD Negative (Negative); CLARITY Clear (Clear); COLOR Yellow (Yellow); GLUCOSE 3+ (Negative); KETONE 3+ (Negative); LEUKO ESTERASE Negative (Negative); NITRITE Negative (Negative); PH 5.5 (4.5-8.0); SPECIFIC GRAVITY 1.025 (1.001-1.030)
[2020-08-14 17:33] LABS: WBC 0-2 wbc/hpf (0-5)
[2020-08-14 20:00] VITALS: BP 104/61
[2020-08-15] VITALS: BP 116/57
[2020-08-15 06:56] LABS: HEMATOCRIT 29.4 % (37.0-47.0); MEAN CELL VOLUME 67.6 fl (81.0-99.0); MEAN CORPUSCULAR HGB 19.5 pg (27.0-31.0); MEAN CORPUSCULAR HGB CONC 28.9 g/dl (33.0-37.0); NUCLEATED RED BLOOD CELL 0.2 10*3/uL (0.0-0.0); NUCLEATED RED BLOOD CELL 0.8 % (0.0-0.0); PLATELET COUNT AUTOMATED 125 10*3/uL (130-400); RED BLOOD COUNT 4.35 10*6/uL (4.10-5.10); RED CELL DISTRI WIDTH 23.8 % (0-14.5); WHITE BLOOD COUNT 24.8 10*3/uL (4.8-10.8)
[2020-08-15 07:21] LABS: CREATININE 2.65 mg/dL (0.55-1.02); POTASSIUM 3.6 mmol/L (3.5-5.1)
[2020-08-15 07:52] LABS: BLASTS 4 % (0-0); BURR CELLS MODERATE; MICROCYTOSIS SLIGHT; PLATELET SUFFICIENCY LOW (NORMAL); SCHISTOCYTES FEW; TOTAL CELLS COUNTED 100 #CELLS
[2020-08-15 08:00] VITALS: BP 130/73
[2020-08-15 11:29] LABS: ARTERIAL BLOOD GAS PH 7.336 (7.35-7.45)
[2020-08-15 11:30] LABS: ABG BASE EXCESS -11.4 mmol/L (-2.0-2.0)
[2020-08-15 12:00] VITALS: BP 136/78
[2020-08-15 16:00] VITALS: BP 114/66
[2020-08-15 20:00] VITALS: BP 102/55
[2020-08-16 06:13] LABS: HEMATOCRIT 27.4 % (37.0-47.0); MEAN CELL VOLUME 66.8 fl (81.0-99.0); MEAN CORPUSCULAR HGB 19.8 pg (27.0-31.0); MEAN CORPUSCULAR HGB CONC 29.6 g/dl (33.0-37.0); NUCLEATED RED BLOOD CELL 0.2 10*3/uL (0.0-0.0); NUCLEATED RED BLOOD CELL 0.7 % (0.0-0.0); PLATELET COUNT AUTOMATED 115 10*3/uL (130-400); RED CELL DISTRI WIDTH 23.3 % (0-14.5); WHITE BLOOD COUNT 23.2 10*3/uL (4.8-10.8)
[2020-08-16 06:22] LABS: ALBUMIN 2.8 gm/dl (3.1-4.5); CREATININE 2.46 mg/dL (0.55-1.02); POTASSIUM 3.2 mmol/L (3.5-5.1); TOTAL PROTEIN 7.2 gm/dL (6.4-8.2)
[2020-08-16 08:00] VITALS: BP 140/59
[2020-08-16 08:30] LABS: MICROCYTOSIS MODERATE; PLATELET SUFFICIENCY LOW (NORMAL); TOTAL CELLS COUNTED 100 #CELLS
[2020-08-16 12:00] VITALS: BP 118/59
[2020-08-16 12:08] LABS: URINE CHLORIDE, RANDOM < 10 mmol/L
[2020-08-16 14:27] LABS: CREATININE 2.35 mg/dL (0.55-1.02); POTASSIUM 3.8 mmol/L (3.5-5.1)
[2020-08-16 16:00] VITALS: BP 123/60
[2020-08-16 17:15] VITALS: BP 121/45
[2020-08-16 18:50] LABS: CREATININE 2.39 mg/dL (0.55-1.02); POTASSIUM 3.8 mmol/L (3.5-5.1)
[2020-08-16 20:00] VITALS: BP 121/62
[2020-08-17] VITALS (13 sets, daily range): BP systolic 83–133; BP diastolic 50–71
[2020-08-17 00:39] LABS: CREATININE 2.21 mg/dL (0.55-1.02); POTASSIUM 3.8 mmol/L (3.5-5.1)
[2020-08-17 06:29] LABS: HEMATOCRIT 27.1 % (37.0-47.0); MEAN CELL VOLUME 67.2 fl (81.0-99.0); MEAN CORPUSCULAR HGB 19.9 pg (27.0-31.0); MEAN CORPUSCULAR HGB CONC 29.5 g/dl (33.0-37.0); NUCLEATED RED BLOOD CELL 0.2 10*3/uL (0.0-0.0); NUCLEATED RED BLOOD CELL 0.9 % (0.0-0.0); PLATELET COUNT AUTOMATED 95 10*3/uL (130-400); RED BLOOD COUNT 4.03 10*6/uL (4.10-5.10); RED CELL DISTRI WIDTH 23.3 % (0-14.5); WHITE BLOOD COUNT 19.7 10*3/uL (4.8-10.8)
[2020-08-17 06:35] LABS: POTASSIUM 3.6 mmol/L (3.5-5.1)
[2020-08-17 06:38] LABS: ALBUMIN 2.8 gm/dl (3.1-4.5); CREATININE 1.85 mg/dL (0.55-1.02)
[2020-08-17 07:26] LABS: BASOPHILS 1 % (0-1); BLASTS 4 % (0-0); TOTAL CELLS COUNTED 100 #CELLS
[2020-08-17 07:27] LABS: BURR CELLS FEW; SCHISTOCYTES FEW
[2020-08-17 07:28] LABS: PLATELET SUFFICIENCY LOW (NORMAL); POLYCHROMASIA SLIGHT
[2020-08-17 10:24] LABS: ACT PARTIAL THROMBO TIME 30.6 SECONDS (20.0-32.1); INTERNATIONAL NORM RATIO 1.2 (2.0-3.5)
[2020-08-18] VITALS (12 sets, daily range): BP systolic 100–134; BP diastolic 48–69
[2020-08-18 06:28] LABS: MEAN CELL VOLUME 66.8 fl (81.0-99.0); MEAN CORPUSCULAR HGB 19.8 pg (27.0-31.0); MEAN CORPUSCULAR HGB CONC 29.6 g/dl (33.0-37.0); NUCLEATED RED BLOOD CELL 0.1 10*3/uL (0.0-0.0); NUCLEATED RED BLOOD CELL 0.6 % (0.0-0.0); PLATELET COUNT AUTOMATED 93 10*3/uL (130-400); RED BLOOD COUNT 3.74 10*6/uL (4.10-5.10); RED CELL DISTRI WIDTH 23.2 % (0-14.5); WHITE BLOOD COUNT 23.5 10*3/uL (4.8-10.8)
[2020-08-18 06:52] LABS: ALBUMIN 2.6 gm/dl (3.1-4.5); CREATININE 1.42 mg/dL (0.55-1.02); POTASSIUM 3.5 mmol/L (3.5-5.1); TOTAL PROTEIN 6.6 gm/dL (6.4-8.2)
[2020-08-18 07:03] LABS: BLASTS 2 % (0-0); TOTAL CELLS COUNTED 100 #CELLS
[2020-08-18 07:06] LABS: OVALOCYTES FEW; PLATELET SUFFICIENCY LOW (NORMAL); POLYCHROMASIA SLIGHT; ROULEAUX SLIGHT; SCHISTOCYTES FEW
[2020-08-18 07:07] LABS: MICROCYTOSIS MODERATE
[2020-08-18 07:09] LABS: ATYPICAL LYMPHS 2 % (0-0); BASOPHILS 1 % (0-1); BLASTS 2 % (0-0); TOTAL CELLS COUNTED 100 #CELLS
[2020-08-18 07:10] LABS: PLATELET SUFFICIENCY LOW (NORMAL)
[2020-08-19] VITALS (11 sets, daily range): BP systolic 90–118; BP diastolic 35–64
[2020-08-19 05:54] LABS: HEMATOCRIT 24.9 % (37.0-47.0); MEAN CORPUSCULAR HGB 19.9 pg (27.0-31.0); MEAN CORPUSCULAR HGB CONC 28.9 g/dl (33.0-37.0); NUCLEATED RED BLOOD CELL 0.2 10*3/uL (0.0-0.0); NUCLEATED RED BLOOD CELL 0.6 % (0.0-0.0); PLATELET COUNT AUTOMATED 73 10*3/uL (130-400); RED BLOOD COUNT 3.61 10*6/uL (4.10-5.10); RED CELL DISTRI WIDTH 23.2 % (0-14.5)
[2020-08-19 06:12] LABS: ALBUMIN 2.6 gm/dl (3.1-4.5)
[2020-08-19 06:16] LABS: CREATININE 1.33 mg/dL (0.55-1.02); TOTAL PROTEIN 6.5 gm/dL (6.4-8.2)
[2020-08-19 07:26] LABS: BLASTS 2 % (0-0); TOTAL CELLS COUNTED 100 #CELLS
[2020-08-19 07:27] LABS: MICROCYTOSIS SLIGHT; PLATELET SUFFICIENCY LOW (NORMAL)
[2020-08-19 07:28] LABS: ACANTHOCYTES FEW; SCHISTOCYTES FEW
[2020-08-20] VITALS (18 sets, daily range): BP systolic 99–141; BP diastolic 46–75
[2020-08-20 05:59] LABS: ALBUMIN 2.6 gm/dl (3.1-4.5); BUN 34 mg/dl (7-24); CHLORIDE 106 mmol/L (98-107); CREATININE 1.05 mg/dL (0.55-1.02); POTASSIUM 3.7 mmol/L (3.5-5.1); SGOT/AST 26 IU/L (3-35); SGPT/ALT 133 U/L (12-78); SODIUM 137 mmol/L (136-145)
[2020-08-20 06:01] LABS: ALKALINE PHOSPHATASE 80 U/L (45-117); TOTAL PROTEIN 6.3 gm/dL (6.4-8.2)
[2020-08-20 06:16] LABS: HEMATOCRIT 23.6 % (37.0-47.0); MEAN CELL VOLUME 68.2 fl (81.0-99.0); MEAN CORPUSCULAR HGB 19.9 pg (27.0-31.0); MEAN CORPUSCULAR HGB CONC 29.2 g/dl (33.0-37.0); NUCLEATED RED BLOOD CELL 0.3 10*3/uL (0.0-0.0); NUCLEATED RED BLOOD CELL 0.9 % (0.0-0.0); PLATELET COUNT AUTOMATED 64 10*3/uL (130-400); RED BLOOD COUNT 3.46 10*6/uL (4.10-5.10); RED CELL DISTRI WIDTH 23.2 % (0-14.5); WHITE BLOOD COUNT 30.7 10*3/uL (4.8-10.8)
[2020-08-20 06:51] LABS: BASOPHILS 1 % (0-1); BLASTS 2 % (0-0); OVALOCYTES FEW; PLATELET SUFFICIENCY LOW (NORMAL); SCHISTOCYTES FEW; TOTAL CELLS COUNTED 100 #CELLS
[2020-08-20 06:52] LABS: ACANTHOCYTES FEW; MICROCYTOSIS MODERATE
[2020-08-20 13:44] LABS: HEMATOCRIT 28.1 % (37.0-47.0); MEAN CELL VOLUME 68.9 fl (81.0-99.0); MEAN CORPUSCULAR HGB 20.1 pg (27.0-31.0); MEAN CORPUSCULAR HGB CONC 29.2 g/dl (33.0-37.0); NUCLEATED RED BLOOD CELL 0.3 10*3/uL (0.0-0.0); PLATELET COUNT AUTOMATED 67 10*3/uL (130-400); RED BLOOD COUNT 4.08 10*6/uL (4.10-5.10); RED CELL DISTRI WIDTH 23.9 % (0-14.5); WHITE BLOOD COUNT 31.5 10*3/uL (4.8-10.8)
[2020-08-20 14:00] LABS: BLASTS 4 % (0-0); MICROCYTOSIS MODERATE; OVALOCYTES FEW; PLATELET SUFFICIENCY LOW (NORMAL); SCHISTOCYTES FEW; TOTAL CELLS COUNTED 100 #CELLS
[2020-08-21] VITALS (11 sets, daily range): BP systolic 100–148; BP diastolic 52–70
[2020-08-21 06:41] LABS: HEMATOCRIT 25.8 % (37.0-47.0); MEAN CELL VOLUME 68.6 fl (81.0-99.0); MEAN CORPUSCULAR HGB 20.7 pg (27.0-31.0); MEAN CORPUSCULAR HGB CONC 30.2 g/dl (33.0-37.0); NUCLEATED RED BLOOD CELL 0.3 10*3/uL (0.0-0.0); NUCLEATED RED BLOOD CELL 1.2 % (0.0-0.0); PLATELET COUNT AUTOMATED 62 10*3/uL (130-400); RED BLOOD COUNT 3.76 10*6/uL (4.10-5.10); RED CELL DISTRI WIDTH 23.9 % (0-14.5); WHITE BLOOD COUNT 28.8 10*3/uL (4.8-10.8)
[2020-08-21 07:06] LABS: ALBUMIN 2.7 gm/dl (3.1-4.5); ALKALINE PHOSPHATASE 84 U/L (45-117); BUN 28 mg/dl (7-24); CHLORIDE 104 mmol/L (98-107); CREATININE 1.06 mg/dL (0.55-1.02); POTASSIUM 3.4 mmol/L (3.5-5.1); SGOT/AST 23 IU/L (3-35); SGPT/ALT 103 U/L (12-78); SODIUM 137 mmol/L (136-145); TOTAL PROTEIN 6.5 gm/dL (6.4-8.2)
[2020-08-21 08:33] LABS: BASOPHILS 1 % (0-1); BLASTS 3 % (0-0); PLATELET SUFFICIENCY LOW (NORMAL); TOTAL CELLS COUNTED 100 #CELLS
[2020-08-21 08:34] LABS: BURR CELLS FEW; MICROCYTOSIS MODERATE; SCHISTOCYTES FEW
[2020-08-22] VITALS (9 sets, daily range): BP systolic 110–147; BP diastolic 47–66
[2020-08-22 07:46] LABS: HEMATOCRIT 25.7 % (37.0-47.0); MEAN CELL VOLUME 68.9 fl (81.0-99.0); MEAN CORPUSCULAR HGB 20.4 pg (27.0-31.0); MEAN CORPUSCULAR HGB CONC 29.6 g/dl (33.0-37.0); NUCLEATED RED BLOOD CELL 0.3 10*3/uL (0.0-0.0); NUCLEATED RED BLOOD CELL 1.3 % (0.0-0.0); PLATELET COUNT AUTOMATED 56 10*3/uL (130-400); RED BLOOD COUNT 3.73 10*6/uL (4.10-5.10); RED CELL DISTRI WIDTH 24.3 % (0-14.5); WHITE BLOOD COUNT 23.8 10*3/uL (4.8-10.8)
[2020-08-22 08:01] LABS: ALBUMIN 2.7 gm/dl (3.1-4.5); BLASTS 1 % (0-0); BUN 21 mg/dl (7-24); CHLORIDE 107 mmol/L (98-107); MICROCYTOSIS MODERATE; POTASSIUM 3.6 mmol/L (3.5-5.1); SODIUM 138 mmol/L (136-145); TOTAL CELLS COUNTED 100 #CELLS
[2020-08-22 08:03] LABS: PLATELET SUFFICIENCY LOW (NORMAL); POLYCHROMASIA SLIGHT; SCHISTOCYTES FEW
[2020-08-22 08:15] LABS: ALKALINE PHOSPHATASE 78 U/L (45-117); CREATININE 0.91 mg/dL (0.55-1.02); SGOT/AST 28 IU/L (3-35); SGPT/ALT 77 U/L (12-78); TOTAL PROTEIN 6.2 gm/dL (6.4-8.2)
[2020-08-23] VITALS: BP 153/61
[2020-08-23 06:34] LABS: HEMATOCRIT 25.6 % (37.0-47.0); MEAN CORPUSCULAR HGB 20.2 pg (27.0-31.0); MEAN CORPUSCULAR HGB CONC 29.3 g/dl (33.0-37.0); NUCLEATED RED BLOOD CELL 0.2 10*3/uL (0.0-0.0); NUCLEATED RED BLOOD CELL 1.1 % (0.0-0.0); PLATELET COUNT AUTOMATED 46 10*3/uL (130-400); RED BLOOD COUNT 3.71 10*6/uL (4.10-5.10); RED CELL DISTRI WIDTH 24.8 % (0-14.5); WHITE BLOOD COUNT 19.7 10*3/uL (4.8-10.8)
[2020-08-23 06:49] LABS: ALBUMIN 2.6 gm/dl (3.1-4.5); ALKALINE PHOSPHATASE 75 U/L (45-117); BUN 16 mg/dl (7-24); CHLORIDE 106 mmol/L (98-107); CREATININE 0.78 mg/dL (0.55-1.02); POTASSIUM 3.5 mmol/L (3.5-5.1); SGOT/AST 22 IU/L (3-35); SGPT/ALT 61 U/L (12-78); SODIUM 138 mmol/L (136-145); TOTAL PROTEIN 6.4 gm/dL (6.4-8.2)
[2020-08-23 07:16] LABS: BASOPHILS 1 % (0-1); TOTAL CELLS COUNTED 100 #CELLS
[2020-08-23 07:17] LABS: BURR CELLS FEW; MICROCYTOSIS MODERATE; OVALOCYTES FEW; PLATELET SUFFICIENCY LOW (NORMAL); POLYCHROMASIA SLIGHT; ROULEAUX SLIGHT; SCHISTOCYTES FEW
[2020-08-23 08:00] VITALS: BP 145/55
[2020-08-23 12:28] VITALS: BP 148/69
[2020-08-23 16:10] VITALS: BP 133/75
[2020-08-23 20:00] VITALS: BP 113/69
[2020-08-24] VITALS: BP 125/55
[2020-08-24 06:31] LABS: HEMATOCRIT 25.3 % (37.0-47.0); MEAN CELL VOLUME 69.3 fl (81.0-99.0); MEAN CORPUSCULAR HGB 20.5 pg (27.0-31.0); MEAN CORPUSCULAR HGB CONC 29.6 g/dl (33.0-37.0); NUCLEATED RED BLOOD CELL 0.2 10*3/uL (0.0-0.0); NUCLEATED RED BLOOD CELL 1.1 % (0.0-0.0); PLATELET COUNT AUTOMATED 37 10*3/uL (130-400); RED BLOOD COUNT 3.65 10*6/uL (4.10-5.10); RED CELL DISTRI WIDTH 25.1 % (0-14.5); WHITE BLOOD COUNT 14.1 10*3/uL (4.8-10.8)
[2020-08-24 06:48] LABS: BUN 14 mg/dl (7-24); CHLORIDE 104 mmol/L (98-107); CREATININE 0.78 mg/dL (0.55-1.02); POTASSIUM 3.6 mmol/L (3.5-5.1); SODIUM 136 mmol/L (136-145)
[2020-08-24 06:59] LABS: BASOPHILS 1 % (0-1); BLASTS 1 % (0-0); TOTAL CELLS COUNTED 100 #CELLS
[2020-08-24 07:01] LABS: MICROCYTOSIS MODERATE; PLATELET SUFFICIENCY LOW (NORMAL); SCHISTOCYTES FEW
[2020-08-24 08:00] VITALS: BP 126/59; BP 145/55
[2020-08-24 12:00] VITALS: BP 138/60
[2020-08-24 16:00] VITALS: BP 132/45
[2020-08-24 20:00] VITALS: BP 118/46
[2020-08-25] VITALS: BP 112/57
[2020-08-25 03:58] VITALS: BP 114/63
[2020-08-25 06:39] LABS: HEMATOCRIT 27.9 % (37.0-47.0); MEAN CELL VOLUME 69.8 fl (81.0-99.0); MEAN CORPUSCULAR HGB CONC 28.7 g/dl (33.0-37.0); NUCLEATED RED BLOOD CELL 0.1 10*3/uL (0.0-0.0); NUCLEATED RED BLOOD CELL 0.9 % (0.0-0.0); PLATELET COUNT AUTOMATED 43 10*3/uL (130-400); RED CELL DISTRI WIDTH 25.2 % (0-14.5); WHITE BLOOD COUNT 11.1 10*3/uL (4.8-10.8)
[2020-08-25 06:51] LABS: BUN 13 mg/dl (7-24); CHLORIDE 105 mmol/L (98-107); CREATININE 0.81 mg/dL (0.55-1.02); POTASSIUM 3.6 mmol/L (3.5-5.1); SODIUM 138 mmol/L (136-145)
[2020-08-25 07:34] LABS: BASOPHILS 1 % (0-1); PLATELET SUFFICIENCY LOW (NORMAL); ROULEAUX MODERATE; SCHISTOCYTES FEW; SPHEROCYTES FEW; TOTAL CELLS COUNTED 100 #CELLS
[2020-08-25 08:00] VITALS: BP 114/63; BP 122/43
[2020-08-25 12:00] VITALS: BP 150/57; BP 176/62
[2020-08-25 16:00] VITALS: BP 135/68
[2020-08-25 20:00] VITALS: BP 148/59
[2020-08-26] VITALS (10 sets, daily range): BP systolic 113–160; BP diastolic 50–81
[2020-08-26 06:44] LABS: HEMATOCRIT 27.5 % (37.0-47.0); MEAN CELL VOLUME 70.3 fl (81.0-99.0); MEAN CORPUSCULAR HGB 19.9 pg (27.0-31.0); MEAN CORPUSCULAR HGB CONC 28.4 g/dl (33.0-37.0); NUCLEATED RED BLOOD CELL 0.1 10*3/uL (0.0-0.0); NUCLEATED RED BLOOD CELL 0.9 % (0.0-0.0); PLATELET COUNT AUTOMATED 44 10*3/uL (130-400); RED BLOOD COUNT 3.91 10*6/uL (4.10-5.10); RED CELL DISTRI WIDTH 25.1 % (0-14.5); WHITE BLOOD COUNT 9.6 10*3/uL (4.8-10.8)
[2020-08-26 06:58] LABS: BUN 13 mg/dl (7-24); CHLORIDE 103 mmol/L (98-107); CREATININE 0.83 mg/dL (0.55-1.02); POTASSIUM 3.6 mmol/L (3.5-5.1); SODIUM 137 mmol/L (136-145)
[2020-08-26 08:00] LABS: ACANTHOCYTES MODERATE; BLASTS 1 % (0-0); MICROCYTOSIS SLIGHT; SCHISTOCYTES FEW; TOTAL CELLS COUNTED 100 #CELLS
[2020-08-26 08:01] LABS: PLATELET SUFFICIENCY LOW (NORMAL)
[2020-08-27 07:15] LABS: HEMATOCRIT 28.2 % (37.0-47.0); MEAN CELL VOLUME 69.1 fl (81.0-99.0); MEAN CORPUSCULAR HGB 20.1 pg (27.0-31.0); MEAN CORPUSCULAR HGB CONC 29.1 g/dl (33.0-37.0); NUCLEATED RED BLOOD CELL 0.1 10*3/uL (0.0-0.0); NUCLEATED RED BLOOD CELL 1.1 % (0.0-0.0); PLATELET COUNT AUTOMATED 51 10*3/uL (130-400); RED BLOOD COUNT 4.08 10*6/uL (4.10-5.10); RED CELL DISTRI WIDTH 25.1 % (0-14.5); WHITE BLOOD COUNT 7.9 10*3/uL (4.8-10.8)
[2020-08-27 07:37] LABS: BUN 15 mg/dl (7-24); CHLORIDE 103 mmol/L (98-107); CREATININE 0.82 mg/dL (0.55-1.02); POTASSIUM 4.1 mmol/L (3.5-5.1); SODIUM 136 mmol/L (136-145)
[2020-08-27 07:40] LABS: BASOPHILS 2 % (0-1); TOTAL CELLS COUNTED 100 #CELLS
[2020-08-27 07:41] LABS: BLASTS 2 % (0-0); MICROCYTOSIS MODERATE; PLATELET SUFFICIENCY LOW (NORMAL); POLYCHROMASIA SLIGHT; SCHISTOCYTES FEW
[2020-08-27 07:42] LABS: ACANTHOCYTES FEW
[2020-08-27 08:00] VITALS: BP 128/53
[2020-08-27 12:00] VITALS: BP 145/55
[2020-08-27 16:00] VITALS: BP 149/54
[2020-08-27 20:00] VITALS: BP 154/54
[2020-08-28] VITALS: BP 124/67
[2020-08-28 08:00] VITALS: BP 152/47
[2020-08-28 12:00] VITALS: BP 157/66
[2020-08-28 16:00] VITALS: BP 156/65
[2020-08-28 20:00] VITALS: BP 150/56
[2020-08-29] VITALS: BP 155/69
[2020-08-29 06:19] LABS: HEMATOCRIT 27.3 % (37.0-47.0); MEAN CELL VOLUME 68.4 fl (81.0-99.0); MEAN CORPUSCULAR HGB 19.8 pg (27.0-31.0); MEAN CORPUSCULAR HGB CONC 28.9 g/dl (33.0-37.0); NUCLEATED RED BLOOD CELL 0.1 10*3/uL (0.0-0.0); NUCLEATED RED BLOOD CELL 0.9 % (0.0-0.0); PLATELET COUNT AUTOMATED 60 10*3/uL (130-400); RED BLOOD COUNT 3.99 10*6/uL (4.10-5.10)
[2020-08-29 06:32] LABS: BUN 8 mg/dl (7-24); CHLORIDE 100 mmol/L (98-107); CREATININE 0.69 mg/dL (0.55-1.02); POTASSIUM 3.8 mmol/L (3.5-5.1); SODIUM 136 mmol/L (136-145)
[2020-08-29 06:39] LABS: BASOPHILS 2 % (0-1); MICROCYTOSIS MODERATE; OVALOCYTES FEW; PLATELET SUFFICIENCY LOW (NORMAL); SCHISTOCYTES FEW; TOTAL CELLS COUNTED 100 #CELLS
[2020-08-29 06:40] LABS: ACANTHOCYTES FEW; POLYCHROMASIA SLIGHT
[2020-08-29 08:00] VITALS: BP 155/59
[2020-08-29] MEDS ORDERED: DILTIAZEM CD240 MG PO (10:07)
[2020-08-29] MEDS ORDERED: METOPROLOL SUCC50 M1 PO (10:07)
[2020-08-29] MEDS ORDERED: LEVEMIR100 UNIT/1 SQ (10:07)
[2020-08-29] MEDS ORDERED: MECLIZINE HYD12.5 MG PO (10:07)
[2020-08-29] MEDS ORDERED: TRINTELLIX10 MG PO (10:07)
== END 2020-08-29 11:40 | disposition home health service (06) | DRG 682 ==
LOC: ED 13:41 → EDHOLD 16:51 → 5E 16:51 → ICCU 16:51 → 5E 23:11 → ICCU 08-16 17:17 → 5E 08-20 17:53
PROVIDERS: Hospitalist; Internal Medicine; Physician Assistant; Social Worker Clinical; Student in an Organized Health Care Education/Training Program; ADMIT Internal Medicine; ATTEND Internal Medicine
PROC: 0HBRXZZ Excision of Toe Nail, External Approach (ICD-10-PCS; principal; 2020-08-13)
PROC: 0HBRXZZ Excision of Toe Nail, External Approach (ICD-10-PCS; 2020-08-13)
PROC: 0HBRXZZ Excision of Toe Nail, External Approach (ICD-10-PCS; 2020-08-13)
PROC: 0HBRXZZ Excision of Toe Nail, External Approach (ICD-10-PCS; 2020-08-13)
PROC: 0HBRXZZ Excision of Toe Nail, External Approach (ICD-10-PCS; 2020-08-13)
PROC: 0HBRXZZ Excision of Toe Nail, External Approach (ICD-10-PCS; 2020-08-13)
PROC: 0HBRXZZ Excision of Toe Nail, External Approach (ICD-10-PCS; 2020-08-13)
PROC: 0HBRXZZ Excision of Toe Nail, External Approach (ICD-10-PCS; 2020-08-13)
PROC: 0HBRXZZ Excision of Toe Nail, External Approach (ICD-10-PCS; 2020-08-13)
PROC: 0HBRXZZ Excision of Toe Nail, External Approach (ICD-10-PCS; 2020-08-13)
PROC: 02HV33Z Insertion of Infusion Device into Superior Vena Cava, Percutaneous Approach (ICD-10-PCS; 2020-08-17)
PROC: B548ZZA Ultrasonography of Superior Vena Cava, Guidance (ICD-10-PCS; 2020-08-17)
PROC: 30233N1 Transfusion of Nonautologous Red Blood Cells into Peripheral Vein, Percutaneous Approach (ICD-10-PCS; 2020-08-20)
PROC: 0DB68ZX Excision of Stomach, Via Natural or Artificial Opening Endoscopic, Diagnostic (ICD-10-PCS; 2020-08-26)
DX: N17.0 Acute kidney failure with tubular necrosis (principal); E43 Unspecified severe protein-calorie malnutrition; E11.10 Type 2 diabetes mellitus with ketoacidosis without coma; E87.1 Hypo-osmolality and hyponatremia; C18.9 Malignant neoplasm of colon, unspecified; N39.0 Urinary tract infection, site not specified; S36.119A Unspecified injury of liver, initial encounter; F33.9 Major depressive disorder, recurrent, unspecified; I31.3 Pericardial effusion (noninflammatory); Z16.12 Extended spectrum beta lactamase (ESBL) resistance; I13.0 Hypertensive heart and chronic kidney disease with heart failure and stage 1 through stage 4 chronic kidney disease, or unspecified chronic kidney disease; R29.6 Repeated falls; E87.6 Hypokalemia; D69.6 Thrombocytopenia, unspecified; E87.8 Other disorders of electrolyte and fluid balance, not elsewhere classified; C55 Malignant neoplasm of uterus, part unspecified; D72.829 Elevated white blood cell count, unspecified; K59.00 Constipation, unspecified; D50.9 Iron deficiency anemia, unspecified; I50.9 Heart failure, unspecified; E11.65 Type 2 diabetes mellitus with hyperglycemia; K21.9 Gastro-esophageal reflux disease without esophagitis; B37.2 Candidiasis of skin and nail; S51.011A Laceration without foreign body of right elbow, initial encounter; E66.01 Morbid (severe) obesity due to excess calories; W19.XXXA Unspecified fall, initial encounter; N18.32 Chronic kidney disease, stage 3b; E11.21 Type 2 diabetes mellitus with diabetic nephropathy; B35.1 Tinea unguium; E11.42 Type 2 diabetes mellitus with diabetic polyneuropathy; B96.20 Unspecified Escherichia coli [E. coli] as the cause of diseases classified elsewhere; F41.9 Anxiety disorder, unspecified; K74.60 Unspecified cirrhosis of liver; I48.0 Paroxysmal atrial fibrillation; E11.22 Type 2 diabetes mellitus with diabetic chronic kidney disease; S81.012A Laceration without foreign body, left knee, initial encounter; K25.9 Gastric ulcer, unspecified as acute or chronic, without hemorrhage or perforation; W18.39XA Other fall on same level, initial encounter; Z79.4 Long term (current) use of insulin; Z90.49 Acquired absence of other specified parts of digestive tract; Z90.710 Acquired absence of both cervix and uterus; Z82.49 Family history of ischemic heart disease and other diseases of the circulatory system; Z86.73 Personal history of transient ischemic attack (TIA), and cerebral infarction without residual deficits; Z85.038 Personal history of other malignant neoplasm of large intestine; Z85.42 Personal history of malignant neoplasm of other parts of uterus; Z83.3 Family history of diabetes mellitus; Y93.89 Activity, other specified; Y92.89 Other specified places as the place of occurrence of the external cause; Y99.8 Other external cause status; Z68.39 Body mass index [BMI] 39.0-39.9, adult; Z20.828 Contact with and (suspected) exposure to other viral communicable diseases